=== PATIENT | male | born 1970 | race Caucasian/White ===

== ENCOUNTER → 2021-09-12 | Outpatient (CLI) | payer OTHER, SELFPAY ==
--- NOTE | 2021-09-12 12:33 | CT_ITS ---
STUDY: CT CHEST without CONTRAST REASON FOR EXAM: Male, 51 years old. FAMILY HEART DISEASE OVER READ ONLY RADIATION DOSAGE (If Supplied By Facility): CTDIvol = ( 25.62 ) mGy, DLP = ( 1353.50 ) mGycm TECHNIQUE: Transaxial imaging was performed without the administration of intravenous contrast material. Overread for cardiac angiogram. Individualized dose optimization techniques were used for this CT. COMPARISON: No relevant priors. FINDINGS: CHEST Mild increased markings at the lung bases suggestive of atelectasis. There is no demonstrated pleural abnormality. There are calcifications of the coronary arteries. Normal mediastinum. Normal hilar regions. Normal unenhanced pulmonary arteries. Normal aorta arch and descending thoracic aorta. Normal osseous structures. Small hiatal hernia. IMPRESSION: Coronary artery calcification. Mild degree of atelectasis and/or scarring at the lung bases. Electronically Signed: Eze De Jesus MD at 14:45 EDT , STUDY: CARDIAC OVER READ EXAMINATION. REASON FOR EXAM: Male, 51 years old. FAMILY HEART DISEASE OVER READ ONLY RADIATION DOSAGE (If Supplied By Facility): CTDIvol = ( 25.62 ) mGy, DLP = ( 1353.50 ) mGycm. Individualized dose optimization techniques were used for this CT.? FINDINGS: Coronary artery calcification. Mild increased markings at the lung bases suggestive of linear atelectasis and/or scarring. CT/Limited Chest CT w/CCTA IMPRESSION: Coronary artery calcification. Electronically Signed: Eze De Jesus MD at 14:45 EDT ,
[2021-09-12 12:54] VITALS: BP 125/91; PULSE 55; RESP 14; TEMP 37.2; O2SAT 97; BMI 26.5
[2021-09-12 13:07] VITALS: BP 125/91; PULSE 55
[2021-09-12] MEDS: Nitroglycerin SL (ED/IMG/CATH) 0.4 MG TABLET SL (13:07)
[2021-09-12 13:20] VITALS: BP 109/76; PULSE 63; RESP 14; O2SAT 95
--- NOTE | 2021-09-12 13:21 | NURSING ---
Patient states feeling fine. Steady gait to elevator.
--- NOTE | 2021-09-12 17:32 | CA.SCORE ---
Calcium Scoring Date of Study:: 09/12/21 Coronary Calcium Scoring: High-resolution Computed Tomographic imaging of the chest was performed on 09/12/2021 with particular attention paid to the coronary arteries. Images from the examination were analyzed for the presence and extent of coronary artery calcification , using coronary calcium quantification software. The patient tolerated the procedure well and there were no complications. The results of the coronary calcification analysis are provided below. Findings Coronary Artery Left Main (LM): 0 Left Anterior Descending (LAD): 219 Left Circumflex (LCX): 9.93 Right Coronary Artery (RCA): 11.5 Total Agatston Score: 240.43 Percentile Ranking: According to prepublished reference tables between 75% and 90% of patients of the same gender/similar age had the same/lower scores. Calcium Scoring Interpretation: 0 No identifiable atherosclerotic plaque. Very low cardiovascular disease risk. <5% chance of presence coronary artery disease A Negative Examination 1-10 Minimal Plaque burden. Significant coronary artery disease very unlikely. 11-100 Mild plaque burden. Likely mild or minimal coronary atherosclerosis. 101-400 Moderate plaque burden Moderate non-obstructive coronary artery disease highly likely. Over 400 Extensive plaque burden. High likelihood of at least one significant coronary stenosis (>50% diameter) Calcium Score: 101 - 400 Moderate non-obstructive coronary artery disease highly like Conclusion: Continue cardiovascular risk factor evaluation and care as deemed appropriate. This note was generated using a voice recognition system and there may be incorrect words, spelling or punctuation that were not noted when reviewing the office note prior to saving.
--- NOTE | 2021-09-12 17:46 | CCTA.WCONT ---
CCTA w/Cont Coronary Arteries Date of Study:: 09/12/21 Family history of CAD Consent:: Per Patient The patient underwent high-resolution CT imaging of the chest on 09-12-2021 with particular attention to the coronary arteries. The images were examined and analyzed for the presence and extent of coronary artery calcification using coronary calcium quantification software as well as for the evidence of underlying atherosclerotic coronary artery disease. The patient tolerated the procedure without any obvious complications being reported. LEFT MAIN CORONARY ARTERY: The left main coronary artery is a large vessel giving rise to the left anterior descending and left circumflex coronary arteries. It does not appear to demonstrate any obvious angiographically significant appearing disease. LEFT ANTERIOR DESCENDING CORONARY ARTERY: The left anterior descending coronary artery is a large vessel which gives rise to a septal gymnasium teacher system and a diagonal branch system and subsequent courses to the LV apex. The proximal and mid LAD demonstrate a combination of mild to moderate and moderate to severe partially obstructive eccentric soft plaque and calcified plaque. The mid LAD demonstrates an area that is not well visualized raising a concern of an underlying moderate to severe soft plaque versus technical artifact due to underperfusion and poor illumination. LEFT CIRCUMFLEX CORONARY ARTERY: The left circumflex coronary artery appears to be a moderate sized vessel giving rise to a moderate-sized obtuse marginal branch. It does not appear to demonstrate any obvious angiographically significant appearing disease. RIGHT CORONARY ARTERY: The right coronary artery appears to be a large dominant vessel giving rise to a right PDA system. It appears to demonstrate a mild proximal eccentric soft plaque. THORACIC AORTA: The thoracic aorta appears to be patent with no obvious angiographic appearing atherosclerotic disease. PULMONARY ARTERY: The main pulmonary artery and the proximal portions of the right and left pulmonary arteries appear to be patent with no obvious filling defects. LEFT ATRIUM/APPENDAGE: The left atrium/appendage appears to be patent with no obvious filling defects. MITRAL VALVE: The mitral valve appears to be bileaflet. AORTIC VALVE: The aortic valve appears to be trileaflet. LEFT VENTRICLE: The left ventricle appears to demonstrate grossly normal left ventricular size, wall motion, and systolic function. The calculated LVEF is 47%. CORONARY CALCIUM SCORE: The coronary calcium score is reported at 241. Per prepublished reference tables this would be compatible with moderate plaque burden. This note was generated using a voice recognition system and there may be incorrect words, spelling or punctuation that were not noted when reviewing the office note prior to saving.
== END | disposition home or self-care (01) ==
LOC: CT 12:16
PROVIDERS: PCP Internal Medicine; Referring Provider Internal Medicine; Visit Provider Internal Medicine
DX: I25.10 Atherosclerotic heart disease of native coronary artery without angina pectoris (principal); Z82.49 Family history of ischemic heart disease and other diseases of the circulatory system
CPT/HCPCS: 75571; 75574; 76380; Q9967; A4216

== ENCOUNTER → 2021-11-30 | Outpatient (CLI) | payer OTHER, SELFPAY ==
--- NOTE | 2021-11-30 06:30 | ECHOD_ITS ---
Reason For Study: CAD/ASHD Procedure This was a 2D Doppler, Color Flow transthoracic echocardiogram. Exam performed portable in patient room. Left Ventricle Normal LV size. Left ventricular systolic function is lower limits of normal. The estimated ejection fraction is 53 %. Stage 1 diastolic dysfunction. No regional wall motion abnormalities noted. Right Ventricle Normal RV size. Normal systolic function. Atria Normal left atrium. Normal right atrium. Mitral Valve Normal mitral valve. Trivial eccentric mitral valve insufficiency. Tricuspid Valve Normal tricuspid valve. Mild tricuspid valve insufficiency. Pulmonary artery systolic pressure is 24 mmHg. Aortic Valve Normal aortic valve. Trisinus/trileaflet aortic valve. Pulmonic Valve Normal pulmonic valve. Great Vessels Normal aortic root. The pulmonary artery is normal size. Normal inferior vena cava. Pericardium/Pleural No pericardial effusion. MMode/2D Measurements & Calculations LVIDd: 4.3 cm IVSd: 0.98 cm Ao root diam: 3.2 cm LVIDs: 2.9 cm LVPWd: 0.89 cm RVDd: 3.3 cm FS: 31.8 % LAV(MOD-bp): 30.9 ml LVAd ap4: 26.1 cm2 SV(MOD-sp4): 41.6 ml LAV(MOD-bp) Indexed: 15.5 ml/m2 LVLd ap4: 7.8 cm LAV(MOD-sp2): 33.4 ml EDV(MOD-sp4): 73.0 ml LAV(MOD-sp4): 27.1 ml EDV(sp4-el): 73.9 ml LVAs ap4: 15.8 cm2 LVLs ap4: 6.7 cm ESV(MOD-sp4): 31.4 ml ESV(sp4-el): 31.8 ml EF(MOD-sp4): 56.9 % EF(sp4-el): 57.0 % SV(sp4-el): 42.1 ml LA A4 area: 12.3 cm2 LA dimension(2D): 3.4 cm RA A4 area: 13.1 cm2 Doppler Measurements & Calculations MV E max bradly: 46.9 cm/sec Lat Peak E' Bradly: 9.1 cm/sec Med Peak E' Bradly: 7.8 cm/sec MV A max bradly: 58.7 cm/sec E/E' lat: 5.2 E/E' med: 6.0 MV E/A: 0.80 Ao V2 max: 91.8 cm/sec LV V1 max: 80.6 cm/sec PA V2 max: 81.6 cm/sec Ao max P.4 mmHg LV V1 max P.6 mmHg Ao V2 mean: 67.5 cm/sec Ao mean P.0 mmHg Ao V2 VTI: 22.2 cm TR max bradly: 229.6 cm/sec TR max P.1 mmHg ECHO/Echo Complete Interpretation Summary Normal LV size. Left ventricular systolic function is lower limits of normal. The estimated ejection fraction is 53 %. Pulmonary artery systolic pressure is 24 mmHg. Stage 1 diastolic dysfunction. Ordering Physician: Chance Lynn Referring Physician: Karol Douglas Performed By: Corine Casper, RDMADISYN, RVT
--- NOTE | 2021-11-30 12:41 | STRESSREP ---
Stress Test Report Exercise myocardial perfusion stress test. 51-year-old man with a history of coronary calcium. Stress protocol: Resting EKG demonstrates normal sinus rhythm with a rate of 59 bpm normal intervals are noted resting blood pressure is 116/80 mmHg. The patient exercised according to regular Tunde protocol for total duration of 9 minutes. Patient completed stage III of the Tunde protocol the maximum heart rate attained was 166 bpm which was 97% of maximum predicted heart rate the maximum workload was 10.1 metabolic equivalents. At rest there were no ST or T wave changes noted to suggest ischemia. At peak exercise there was approximately 0.[address] depression which did not meet the criteria for ischemia. Mild T wave inversions were noted during recovery. The peak blood pressure was 162/90 mmHg. The test was terminated due to the target heart rate being achieved. The patient did experience mild and moderate chest tightness at peak exercise dissipating at rest. Myocardial perfusion protocol. 14.8 mCi of technetium 99m sestamibi was injected at rest. The patient exercised according to regular Tunde protocol and at peak exercise 44.5 mCi of technetium 99m sestamibi was injected stress images were obtained stress and rest images were reconstructed and compared in the short axis vertical long and horizontal long axis. Gated images were also obtained. Perfusion SPECT analysis: Review of the stress images demonstrate a medium size area in the mid anterior wall and apex with reduced perfusion on the stress images. The septum lateral wall and inferior wall appear to be normally perfused. The resting images demonstrate complete reversibility suggesting a moderate amount of anteroapical ischemia at a high workload. No previous infarct is noted. Gated SPECT analysis: The gated ejection fraction is 63%. Conclusion: Abnormal exercise myocardial perfusion stress test with evidence of anterior apical ischemia at a high workload. Preserved ejection fraction.
== END | disposition home or self-care (01) ==
PROVIDERS: PCP Internal Medicine; Referring Provider Internal Medicine Cardiovascular Disease; Visit Provider Internal Medicine Cardiovascular Disease
DX: R93.1 Abnormal findings on diagnostic imaging of heart and coronary circulation (principal); I25.10 Atherosclerotic heart disease of native coronary artery without angina pectoris
CPT/HCPCS: 78452; 93017; 93306; A9500; A4216

== ENCOUNTER 2022-01-02 06:56 | Day surgery (SDC) | payer OTHER, SELFPAY ==
[2022-01-01 09:34] VITALS: BMI 26.5
--- NOTE | 2022-01-01 10:38 | RAD_ITS ---
EXAM: XR CHEST, 2 VIEWS CLINICAL INDICATION: CAD TECHNIQUE: Frontal and lateral views of the chest. This report was created using [facility] report generation technology. COMPARISON: None. FINDINGS: LUNGS AND PLEURAL SPACES: Unremarkable. No consolidation or edema. No pneumothorax. No effusion. HEART: Unremarkable. Cardiac silhouette not enlarged. MEDIASTINUM: Central airways and mediastinal contour are unremarkable. BONES/JOINTS: Unremarkable. SOFT TISSUES: Unremarkable. RAD/Chest PA and Lateral IMPRESSION: No radiographic evidence of acute cardiopulmonary disease. Electronically Signed: Lisandro Fernandes MD at 11:38 EDT ,
[2022-01-01 11:24] LABS: Absolute Lymphocyte Count 3.84 X10^3/uL (0.83-4.51); Absolute Neutrophil Count 4.9 X10^3/uL (2.0-7.7); Basophil# 0.11 X10^3/uL; Basophil% 1.1 % (0-1); Eosinophil# 0.25 X10^3/uL; Eosinophils% 2.4 % (0-5); Hematocrit 48.8 % (40-54); Hemoglobin 17.1 g/dL (13.0-16.5); Lymphocyte # 3.84 X10^3/ul (0.83-4.51); Lymphocyte % 37.4 % (19-41); Mean Corpuscular Hgb 31.5 pg (27.0-32.0); Mean Platelet Vol. 9.8 fl (6.2-12.0); Monocyte# 0.93 X10^3/uL; Monocyte% 9.1 % (0-10); NRBC Flagged by Analyzer 0 % (0-5); Neutrophil # 4.91 X10^3/uL (2.7-7.7); Neutrophil % 47.8 % (47-70); Platelet Count 265 K/mm3 (150-450); RBC Distribution Width CV 13.2 % (11.6-14.6); RBC Distribution Width SD 43.5 fl (35.1-43.9); Red Blood Count 5.42 M/mm3 (4.6-6.2); White Blood Count 10.3 K/mm3 (4.4-11.0)
[2022-01-01 11:59] LABS: Anion Gap 6 (5-15); BUN 22 mg/dL (7-18); BUN/Creat Ratio 18.5 RATIO (10-20); Calcium,Total 9.1 mg/dL (8.5-10.1); Chloride 106 mmol/L (98-107); Creatinine, Serum 1.19 mg/dL (0.70-1.30); EST Glomerular Filtration Rate 69 mL/min (>60); Est Glom Filt Rate - Afr Amer 83 mL/min (>60); Estimated Creatinine Clearance 76.68 ml/min; Glucose 77 mg/dL (74-106); Sodium Level 140 mmol/L (136-145)
--- NOTE | 2022-01-02 08:20 | PCM.HP.BLA ---
History and Physical Date of Admission: 01/02/22 51-year-old man who saw primary care provider for a general physical. He does have a significant family history of coronary artery disease with his father having a myocardial infarction in his 40s, grandfather with similar heart disease and an [place] in his 60s. He denies any chest pain or shortness of breath or paroxysmal nocturnal dyspnea pedal edema no neck arm or jaw discomfort to suggest angina. As part of his work-up he underwent a coronary calcium score with angiography. It demonstrated a coronary calcium score of 241 which suggested moderate plaque burden. There was a suggestion of a combination of soft and calcified plaque with mild to moderate disease noted in the mid left anterior descending artery with possible moderate to severe partially obstructive plaque noted. There was a question of underperfusion on this test. He is completely asymptomatic. His most recent lipid profile demonstrated total cholesterol 184 LDL of 132 HDL of 40. His electrocardiogram demonstrates normal sinus rhythm with a rate of 74 bpm and no acute changes. To assess further, he underwent echocardiogram on 11/30/2021 that showed ejection fraction of 53% and stage I diastolic dysfunction. He had stress test on 11/30/2021 that was considered to be abnormal with evidence of anterior apical ischemia at a high workload with a preserved ejection fraction. He presents today for heart catheterization on account of abnormal stress test. Intake Vital Signs: See EMR Intake Visit Reasons: Abnormal stress test/LHC Allergies bee venom protein (honey bee) Adverse Reaction (Severe, Verified 07/27/21 13:38) Anaphylaxis Medications See EMR Ejection fraction %: 53 [facility] Medical History Abnormal findings diagnostic imaging of heart and coronary circulation Colon cancer screening Family history of coronary artery disease Family history of coronary artery disease in father Family history of coronary artery disease in grandfather Family History Father Myocardial infarction, Onset Age: 43 CAD (coronary artery disease) CABG ICD Hypertension Grandmother No problems noted. Grandfather Myocardial infarction, Onset Age: 61 Other Diabetes Rheumatoid arthritis Social History Smoking Status: Never smoker alcohol intake: current alcohol intake frequency: a few times a week Alcohol type: beer and hard liquor substance use type: does not use ROS Const Const: Negative for fatigue, weakness, headache(s), frequent falls, difficulty sleeping or excessive sweating Eyes Eyes: Negative for loss of peripheral vision, transient loss of vision, blurry vision, double vision or tunnel vision ENT ENT: Negative for headache(s), dizziness, Nosebleed/epistaxis or balance problems Cardio Chest Pain: No Palpitations: No Edema: None Muscle aches with walking: None Resp Respiratory: Negative for SOB with activity, SOB at rest, SOB orthopnea\SOB lying down, Cough or paroxysmal nocturnal dyspnea GI GI: Negative nausea, vomiting, heartburn or black,tarry stools : Negative for hematuria Musc Musc: Negative for muscle aches/ myalgia, muscle weakness, joint pain or balance problems Skin Skin: Negative non-healing lesions, rash or unusual bruising Neuro Neuro: Negative for dizziness, lightheadedness, near syncope, syncope, orthostatic symptoms, frequent falls, headache(s), weakness, blurry vision, double vision or lack of coordination Joshua Hematologic/Lymphatic: Negative for easy bleeding or easy bruising Endo Endo: Negative for fatigue, excessive sweating or increased thirst/drinking Psych Psych: Negative for anxiety or depression Allergy Allergy/Immunology: Negative for hives and Negative for rash Cardiology Exam Const Appearance: cooperative, healthy appearing, no acute distress, well developed and well groomed Nutritional Appearance: average body habitus and well nourished Orientation: alert, awake and oriented x3 Head Head: normal to inspection, normocephalic and atraumatic Ears: hearing grossly normal bilaterally and external ears normal Nose: external nose normal, nares normal, nasal mucous membranes and turbinates normal, septum normal and no nasal discharge Face and Sinus: face symmetric Mouth: oral mucosae normal, tongue normal, oropharynx normal and moist mucous membranes Teeth and gingiva: dentition normal Throat: posterior oropharynx normal, tonsils normal and uvula midline Eyes General: appearance normal, both eyes and all related structures Eyelids: eyelids normal Conjunctivae: conjunctivae normal Pupils: PERRL, normal by confrontation and accommodation normal EOM: EOM intact bilaterally Neck Neck: normal visual inspection, trachea midline and no JVD JVD: +5 Carotids: normal carotid upstroke and bounding pulses Chest Chest inspection: normal inspection of the chest, symmetric chest movement and normal respiratory effort Auscultation: Bilateral: Clear to Auscultation Cardio Palpation: normal PMI Rate: regular rate Rhythm: regular rhythm Heart sounds: S1 normal, S2 normal and normal, physiologic split S2; Negative rub, gallop or murmur GI GI: normal to inspection, soft, no hepatosplenomegaly and bowel sounds present Neuro General: patient alert, patient awake, patient oriented x3, gait normal, moves all extremities and no focal sensory deficit Skin Skin: no rashes or lesions noted Extremities Pulses: Normal: Right Femoral Pulse, Left Femoral Pulse, Right Dorsalis Pedis Pulse, Left Dorsalis Pedis Pulse, Right Posterior Tibial Pulse, Left Posterior Tibial Pulse, Right Radial Pulse and Left Radial Pulse Lower Extremity Edema: None: Bilateral Musculoskel Musculoskeletal: No joint tenderness Psych Psychological: normal affect Supplemental Info Supplemental Information Labs: LDL Cholesterol 132 mg/dL (0-130) H HDL Cholesterol 40 mg/dL (40-) Triglycerides 60 mg/dL (-199) VLDL Cholesterol 12 mg/dL (5-40) Diagnostics: Electrocardiogram Coronary Angiography CT Pulmonary: No Data to Display Assessment and Plan Assessment and Plan (1) Abnormal findings diagnostic imaging of heart and coronary circulation: Status: Acute Orders: Orders: 12 Lead EKG performed by [facility] Today Echo Complete Today Nuclear Stress Test - Treadmil Today Plan - Dr. Chance Lynn MD: He does have an abnormal coronary calcium as well as his findings of atherosclerotic cardiovascular disease. With this risk, he was started on Lipitor 10 mg a day and expected to repeat a lipid profile in 6 months. On account of abnormal stress test, he will proceed with heart catheterization. Based on results, further recommendation will be made.
--- NOTE | 2022-01-02 08:54 | CL.D_ITS ---
Patient Name: NIK NESS Study Date: 01/02/2022 Performing: Chance Lynn MD Ht: 70 inches 177.8 cm : 1970 Wt: 184.99 lbs 83.91 kg Age: 51 Gender: male BSA: 2.02 PROCEDURE(S) PERFORMED [id number])C/COR CLINICAL PROFILE AND INDICATIONS Indications: Suspected CAD Heart Failure: None Stress/Imaging Date: 11/30/2021tress Test with SPECT MPI: Positive Intermediate Risk CAD Presentations: Unstable angina. CONCLUSIONS Totally occluded left anterior descending artery with left to left collaterals and mild LV dysfunction. Mild to moderate disease noted in the circumflex artery and right coronary artery. RECOMMENDATIONS Would recommend intervention for [facility] in a tertiary care facility. We will get opinion as outpatient. DESCRIPTION OF PROCEDURE The patient arrived to the procedure lab. The risks and benefits of the procedure as well as a full description of our services here and current unavailability of surgical backup were fully explained to the patient and/or their significant other prior to the catheterization. The Timeout was completed, verifying the correct patient and procedure. The patient's procedural site was prepped and draped in the usual fashion. Local anesthetic was given subcutaneously to left radial region with Lidocaine 2%. Using a modified Seldinger technique, arterial access was obtained via the right radial artery, a 6Fr sheath was inserted. Right Coronary Artery selective angiography was then performed in multiple views using a 5 Fr. 4.0 [place] catheter. Left Coronary Artery selective angiography was performed in multiple views using a 5 Fr. 4.0 [place] catheter. Left Ventriculography was performed in GRUBER projection using a 5 Fr. Pigtail catheter. LV to AO pullback pressures were then recorded. CORONARY ANGIOGRAPHY DOMINANCE: Right Dominant LEFT HEART ASSESSMENT Left Ventricular Ejection Fraction: by LV Gram 55 % Anterior Hypokinesis - Mild Normal Left Ventricular systolic function LEFT MAIN: Angiographically normal LEFT ANTERIOR DESCENDING ARTERY: Left anterior descending artery is totally occluded proximally and has distal right to left collaterals and a large gap. There are also left to left collaterals noted. CIRCUMFLEX ARTERY: Moderate luminal irregularities up to 50% RIGHT CORONARY ARTERY: Moderate luminal irregularities up to 50% COLLATERAL FLOW: Collateral flow from Right to Left Collateral flow from Left to Left COMPLICATIONS No Complications PROCEDURE MEDICATIONS Versed 1 mg IV Fentanyl 50 mcg IV Versed 1 mg IV Baby Aspirin (81mg) 1 Tabs PO @ 01/02/2022 07:13:44 Heparin given IA 01/02/2022 08:27:57 Verapamil 2.5mg, Ntg 100mcgs, 3000 units of Heparin given IA 01/02/2022 08:27:57 SUMMARY OF HEMODYNAMIC DATA Time AIR REST ECG 07:14:51 Art 126/75 (96) 08:23:09 AO 108/78 (93) SA 08:29:35 LV 118/5, 13 08:35:24 LV 109/6, 11 08:35:32 LV 113/6, 13 08:36:19 LVp 108/5, 8 08:36:22 AOp 114/66 (95) 08:36:29 Signed By Chance Lynn MD On 01/02/2022 08:54:00 Chance Lynn MD
--- NOTE | 2022-01-02 09:11 | CASEMGMT ---
According to the [facility]/MMO website the following are in-network tertiary facilities: [facility], [place], [facility], [facility], [facility], [facility], and . [facility]
== END 2022-01-02 10:59 | disposition home or self-care (01) ==
LOC: CLSP 06:57
PROVIDERS: PCP Internal Medicine; Referring Provider Internal Medicine Cardiovascular Disease; Visit Provider Internal Medicine Cardiovascular Disease
DX: I25.110 Atherosclerotic heart disease of native coronary artery with unstable angina pectoris (principal); I25.82 Chronic total occlusion of coronary artery; Z79.82 Long term (current) use of aspirin; Z79.899 Other long term (current) drug therapy
CPT/HCPCS: 36415; 71046; 80048; 85025; 93458; 99152; 99153; J7040; C1769; C1894; Q9967

== ENCOUNTER → 2022-01-12 | Outpatient (CLI) | payer OTHER, SELFPAY ==
[2022-01-12 12:04] LABS: Hematocrit 45.1 % (40-54); Hemoglobin 15.4 g/dL (13.0-16.5); Mean Corp Hgb Conc 34.1 g/dL (32-36); Mean Corpuscular Hgb 30.7 pg (27.0-32.0); Platelet Count 228 K/mm3 (150-450); RBC Distribution Width CV 12.5 % (11.6-14.6); RBC Distribution Width SD 41.1 fl (35.1-43.9); Red Blood Count 5.01 M/mm3 (4.6-6.2); White Blood Count 7.7 K/mm3 (4.4-11.0)
[2022-01-12 12:30] LABS: Anion Gap 6 (5-15); BUN 19 mg/dL (7-18); BUN/Creat Ratio 17.8 RATIO (10-20); Calcium,Total 9.2 mg/dL (8.5-10.1); Chloride 106 mmol/L (98-107); Creatinine, Serum 1.07 mg/dL (0.70-1.30); EST Glomerular Filtration Rate 78 mL/min (>60); Est Glom Filt Rate - Afr Amer 94 mL/min (>60); Glucose 90 mg/dL (74-106); Potassium 3.8 mmol/L (3.5-5.1); Sodium Level 139 mmol/L (136-145)
== END | disposition home or self-care (01) ==
LOC: LAB 11:03
PROVIDERS: PCP Internal Medicine
DX: I25.10 Atherosclerotic heart disease of native coronary artery without angina pectoris (principal)
CPT/HCPCS: 36415; 80048; 85027

== ENCOUNTER → 2022-01-16 | Outpatient (CLI) | payer OTHER, SELFPAY ==
--- NOTE | 2022-01-16 13:16 | CR.HP_ITS ---
CR - History & Physical - General Arrival date:: 01/16/22 Arrival time:: 13:16 Date of Referral:: 01/07/22 Date of CR Evaluation:: 01/16/22 Referring Physician: Dr. Chance Lynn Primary Diagnosis: PCI with stenting - History of Present Cardiac Event Onset Date: Enter Onset Date of cardiac illnesses in Comment field below PTCA or coronary stenting:: Yes - 01/07/2022 Vessel: WINDER TENDER LAD - Sleep Disorder Evaluation Hx of Sleep Apnea: No Do you snore loudly (louder than talking or can be heard through closed doors)?: No Do you often feel tired/ fatigued/ sleepy during daytime?: No Has anyone observed you stop breathing during sleep?: No History of Hypertension (for STOP score): No STOP Results: Negative - Medications Home Medications: Ambulatory Orders Medication Instructions Recorded rizatriptan 10 mg tablet See Rx Instructions PO .COMPLEX 09/21/21 aspirin 81 mg tablet,delayed 81 mg PO DAILY 11/30/21 release (Adult Aspirin Regimen) methylprednisolone 4 mg tablets in See Rx Instructions PO PER PKG DIR 12/26/21 a dose pack (Medrol (Alex)) #21 tabs atorvastatin 80 mg tablet 80 mg PO QHS 01/07/22 metoprolol succinate 50 mg 50 mg PO DAILY 01/07/22 tablet,extended release 24 hr ticagrelor 90 mg tablet 90 mg PO BID 01/07/22 - Allergies Allergies/Adverse Reactions: Allergies bee venom protein (honey bee) Adverse Reaction (Severe, Verified 12/26/21 12:53) Anaphylaxis Advanced Directives - Advanced Directives Power of Art Professor: No Living Will: No Advance Directives Information Provided: No Advance Directives on File: No DNR Order?:: No Past Medical History - Covid-19 Screening Has a serious heart condition:: Yes - Past Medical Illness Medical History: Past Medical History (Last Updated 01/07/22 @ 17:26 by Earnestine [place]) Abnormal findings diagnostic imaging of heart and coronary circulation R93.1 Abnormal nuclear stress test R94.39 Atherosclerosis of coronary artery without angina pectoris I25.10 Colon cancer screening Z12.11 Elevated coronary artery calcium score R93.1 Family history of coronary artery disease Z82.49 Family history of coronary artery disease in father Z82.49 Family history of coronary artery disease in grandfather Z82.49 - Past Surgical History Surgical History: Past Surgical History (Last Updated 01/07/22 @ 17:26 by Earnestine [place]) History of coronary artery stent placement Onset Date: 01/07/22 Z95.5 PCI-BRITTANIE of sequential proximal LAD stenoses and mid LAD WINDER TENDER with PTCA and deployment of 3 overlapped Xience BRITTANIE (3.5 x 28 mm proximal, 3.0 x 33 mm mid, and 2.5 x 12mm mid) 01/07/2022 History of left heart catheterization Onset Date: 01/02/22 Z98.890 - Family History Summary Family History: Family History (Last Reviewed 12/26/21 @ 12:53 by Candie Saab) Father Myocardial infarction, Onset Age: 43 CAD (coronary artery disease) CABG ICD Hypertension Grandmother No problems noted. Grandfather Myocardial infarction, Onset Age: 61 Other Diabetes Rheumatoid arthritis Social History - Smoking History Smoking Status: Never smoker - Alcohol Use Alcohol Usage: Yes - occas beer an liquor - Occupation Occupation (List type of work in comments):: Employed Hours worked per day:: 12 - Hobbies, Recreation, Social Activities Hobbies: Woodworking Recreational Activities: I am able to engage in all my recreational activities Social Environment - Status Marital Status: - Current Living Arrangements Living Environment:: Family - Children How many children do you have?: 2 Do any of your children live nearby?: Yes - Safety Do you feel safe in your surroundings?: Yes - Assistance Do you need any assistance at home?: none Review of Systems - Review of Systems Hints: Right click = Denies ([place]). Left click = Reports ([place]) Review of Present Symptoms: Reports: Appetite - Normal, Sleep - Normal. Denies: Shortness of Breath at Rest, Shortness of Breath with Exertion, PVD, Operative Discomfort, Angina, Wound Healing, Dizziness/Lightheadedness, Fatigue, Heart Arr hythmia/Irregularities, Appetite - Special Diet, Sexual Changes - Pain Is Patient Pain Free?: Yes Risk Factor Assessment - Chief Complaint Chief Complaint: PCI with coronary stent - Vital Signs Pulse Ox: 96 Blood Pressure: 90/60 - Pulse Pulse Rate: 75 Pulse Rhythm: Regular - Obesity Height: 5 ft 10 in Weight:: 84.368 kg Weight in Pounds: 186.0 lbs Body Mass Index (BMI): 26.6 Nutritional Referral for Obesity: No - Physical Inactivity Physical Inactivity: None - Risk Stratification Risk Guidelines: Lowest Risk: Risk Factor for Smoking, Moderate Risk: Risk Factor for Dyslipidemia, Risk Factor for Diabetes, Risk Factor for Obesity, Risk Factor for Hypertension, Risk Factor for Sedentary Lifestyle, Risk Factor for Depression - Family History Family History: Family History (Last Reviewed 12/26/21 @ 12:53 by Candie Saab) Father Myocardial infarction, Onset Age: 43 CAD (coronary artery disease) Hypertension Grandmother No problems noted. Grandfather Myocardial infarction, Onset Age: 61 Other Diabetes Rheumatoid arthritis Motivation - Motivation to Participate On a scale of 1 to 10, how prepared are you to commit to attending program?: 8 What do you see as barriers to successfully being able to complete the program?: work What do you see as the benefits of succesfully completing the program? In other words, what do you hope to get out of participating in the program?: improved health and knowledge of cardiac disease Are there issues you are dealing with that will interfere with completing the program?: no Do you have a spouse or signficant other, family or friends who will help support you to complete the program?: yes
[2022-01-16 14:02] VITALS: BP 90/60; PULSE 75; O2SAT 96; BMI 26.6
--- NOTE | 2022-01-16 14:02 | CR.ITP_ITS ---
Diagnosis - General Information Admitting Diagnosis: pci with coronary stent Personal Learning Style:: Audio/Visual, Demonstration, Group, Individual Preference, Written Stage of change r/t lifestyle modifications:: Contemplation Gave educational material for:: Treating Heart Disease, Emotions & Heart Disease, Stress Management & Relaxation, Sleep Disorders & Heart Disease, How The Heart Works, What it means to have Heart Disease, How Coronary Artery Disease is Diagnosed, Heart Procedures, What Heart Medications Do, Risk Factors & Modifications, Living an Active Life, Nutrition - Education/Goals Cardiac Rehabilitation Goals: 1. Maintain the individual as the primary focus of care. 2. To improve the patient's quality of life. 3. Identification of cardiac risk factors and provide cardiac risk factor management. 4. Enhance the psychosocial status of the patient. 5. Reconditioning enough to allow the patient to resume customary activities. 6. Control symptoms of cardiac disease Personal Goals: Initial Assessment: Improve energy level, Participate in home exercise program, Get back to work, or to resume activities faster, Improve knowledge of cardiac disease, Improve muscle strength and endurance, Improve diet and eating habits (eat healthier), Control risk factors (learn risk factor modification) Scale for measuring improvement of personal goals: Enter appropriate number in Comments. 2 = Unchanged. 3 = Slightly Better. 4 = Moderate Improvement. 5 = Met my Goal - Diagnosis & Disease Process Outcomes/Goals: Pt IDs own risk factors & lifestyle modifications by Session 10, Verbalizes symptoms of angina & response by session 3., Pt independently manages, Other Additional Outcomes/Goals: Plan/Interventions: Assist Pt to ID & engage in lifestyle modification to reduce CVD risk, Instruct on individual risk factors, Review symptoms of angina & emergency actions, Review secondary diagnosis & identify educational needs., Other see comment 30 day Reassessments:: Not Met 30 day Reassessments:: Not Met 30 day Reassessments:: Not Met 30 day Reassessments:: Not Met Final Reassessments:: Not Met - Safety Referral to Physical Therapy: No Referral to [facility] Case Management: No Fall Risk Assessed:: Yes Assistive Devices:: None Exercise - Initial Assessment - Visit Date of Eval: 01/16/22 - initial eval Mets: Pre-: >3 METS for 30 minutes by discharge, >5 METS for 30 minutes by discharge, >7 METS for 30 minutes by discharge, Unable to meet goal due to: (see comment below) - Physician Prescribed Exercise Modalities: Treadmill, Rower, Airdyne, NuStep, SciFit, Lateral [place] Frequency: 2x/week for 18 weeks [36 sessions], 3x/week for 12 weeks [36 sessions] Intensity: 60-80% of age predicted maximum heart rate reserve Current METSs:: 4 Target Heart Rate:: 104-136 Resting Blood Pressure: 90/60 EKG Type: SR - Outcomes & Goals Goals:: Verbalizes understanding of THR, RPE & goal METS by session 6, Documents in home exercise log/reports 30 min aerobic 5 day/wk by DC, Demonstrates accurate pulse taking by DC, Other additional outcome/goals: see below - Intervention & Plan Exercise Program Goals: Instruct on personal THR & RPE, Instruct on MET level & personal MET goal, Show patient to take own pulse /validate performance until accurate, Instruct on home exercise, Other additional plan/int - Physical Activity Home Exercise Physical Activity - Home Exercise: Safe Exercise, Warm-up, Self-monitoring, Cool-Down, Home Exercise > 30 min Daily, Sitting Time <3 hours/daily - Outcomes & Goals Outcomes/Goals: Demonstrates correct Warm-up/exercise Cool-Down (S3) if = 2.5 METs, Verbalizes symptoms of exercise intolerance by Session 3 (S3), Demonstrate safe equipment use (S3) & follows exercise prescrition (6), Other: See below - Intervention & Plan Plan/Intervention: Instruct warm-up & cool-down if exercising at > 2 METs, Instruct on symptoms of exercise intolerance & actions to take, Instruct & monitor on saf, Assess intial functional capacity & safety risk, Other See below Nutrition - Initial Assessment - Program Goals Nutrition Program Goals: LDL <100 optimal. 100 - 129 Near optimal. 130 - 159 Borderline High. 160 - 189 High. Total Cholesterol <200 desirable. 200 - 239 Borderline High. >/= 240 High. HDL < 40 Low >/=60 High. Triglycerides <150 desirable. <199 optimal. VlDL 5 - 40. HgbA1C <7%. BMI <25 Patient has diagnosis of Hyperlipidemia (ICD E78)?: Yes - Visit Date of Assessment:: 01/16/22 - initial eval - Cholesterol/Lipids (Other Core Measures) Determine presence & major risk factors that modify LDL goal: Hypertension or hypertensive medication, Low HDL cholesterol <40 mg/dL*, Family history of premature CHD in Male < 55 years: female <65 yearsFa, Age men > 45 years; women >/= 55 years Outcomes/Goals: Pt IDs own risk factors & lifestyle modifications by Session 10, Verbalizes symptoms of angina & response by session 3., Pt independently manages, Other Additional Outcomes/Goals: Intervention/Plan: Advocate for lipid panel cholesterol medication if applicable, Instruct on personal lipid levels & lipid goals/NCEP guidelines, Instruct on cholesterol, Other additional plan/int Referral to dietitian:: No - declines - Diabetes (Other Core Measures) Diabetes Type: Not Applicable - Weight Mgt (Other Care) Height: 5 ft 10 in Weight:: 84.368 kg BMI: 26.6 Diagnosis Overweight/Obesity BMI> 30% ICD-10 E66: No Diagnosis High BMI/Morbid Obesity BMI> 35% ICD-10 Z68: No Outcomes/Goals: Pt sets, maintains & shows weight loss goal & trend during rehab, Other additional outcomes/goals Intervention/Plan: Instruct on ideal BMI & set weight loss goal w/patient, Assist pt to ID & incorporate diet changes for weight loss by S9, Refer to Structured Weight Loss program as appropriate, Encourage goal of using 250- 300dcal per session for weight loss, Other additional plan/interventions - Healthy Eating Habits Will attend diet classes:: Yes Outcomes/Goals:: Consume diet rich in vegs,fruits,whole grain/high fiber,fish,lean meat, Limit sat/trans fats,cholesterol & added salts & sugars, Other additional outcome/goals: Intervention/Plan:: Assess current eating habits, Other Additional plan/interventions - Education Gave educational materials for:: Signs & symptoms of hypoglycemia, Signs & symptoms of hyperglycemia, Relate diabetes to coronary artery disease, Healthy eating Nutrition - 30-Day Assessment Nutrition - 60-Day Assessment Nutrition - 90-Day Assessment Nutrition - Final Assessment Core - Initial Assessment - Visit Date of Eval: 01/16/22 - initial eval - Medication Compliance Preventative Medication(s):: Aspirin, Ticagrelor/P2Y12 inhibitor, Statin/lipid, Beta trena H/O mental health issues: depression, anxiety, or addiction?: No Doesn?t believe in the benefits of treatment?: No Believes medications are unnecessary or harmful?: No Has a concern about medication side effects?: No Expresses concern over the cost of medications?: No Outcomes/Goals: Verbalizes medications,desired effect & common side effects @ DC, Pt self-reports following medication regimen, Keeps card in wallet w/medications listed by DC, Other additional outcome/goals: Interventions/plans: Instruct on medication effects & side effects, Review medication list w/patient every two weeks, Instruct importance of taking meds as ordered & assist problem solving, Other additional - Tobacco Use Tobacco Use: Non-smoker Do you use smokeless tobacco?: No - Hypertension Resting Blood Pressure:: 90/60 [place] [employer] Hypertension Guidelines: [place] [employer] Hypertension Guidelines. Normal BP Less than 120/80. Elevated BP 120/80. Hypertension Stage 1: BP 130-139/80-89. Hypertesnion Stage 2: BP 140 or higher/90 or higher. Hypertension Crisis: BP higher than 180/120 Outcomes/Goals: Able to verbalize/achieve optimal blood pressure <130/80, Incorporates diet changes & exercise for blood pressure control by DC, Other additional outcomes/goals Interventions/plan: Instruct on optimal blood pressure, hypertension & medications, Instruct on effects of sodium, alcohol, stress, exercise &hypertension, Other additional plan/interventions - Tobacco Cessation Referral Smoking Cessation Referral:: No Individual Education/Counseling:: No Education Schedule Given:: Yes Core - 30-Day Assessment Core - 60-Day Assessment Core - 90 Day Assessment Core - Final Assessment Psychosocial - Initial Assess - VIsit Date of Eval: 01/16/22 - initial eval History of previous Mental disease:: No - Outcomes/Goals: See list Psychosocial Outcomes/Goals:: ID's personal stressors & 2 strategies to manage stress by discharge, Other Additional outcome/goals: - Intervention/Plan: See List Interventions/Plan:: Assess stressors,coping strategies & signs of derpression on admission, Instruct/assist pt to develop coping & personal stress Mgt strategies, Refer to Behavioral Health if appropriate, Refer to Physician if appropriate, Instruct patient to recognize signs & symptoms of depression, Instruct patient to recog, Other additional plan/intervention Psychosocial - 30-Day Assess Psychosocial - 60-Day Assess Psychosocial - 90-Day Assess Psychosocial - Final Assessmen Patient Health Questionnaire Initial Assessment 1. Little interest or pleasure in doing things: Not at all 2. Feeling down, depressed, or hopeless: Not at all 3. Trouble falling or staying asleep, or sleeping too much: Not at all 4. Feeling tired or having little energy: Several days 5. Poor appetite or overeating: Not at all 6. Feeling bad about yourself -- or that you are a failure or have let yourself or your family down: Not at all 7. Trouble concentrating on things, such as reading the newspaper or watching television: Not at all 8. Moving or speaking so slowly that other people could have noticed. Or the opposite - being so fidgety or restless that you have been moving around a lot more than usual: Not at all 9. Thoughts that you would be better off , or of hurting yourself in some way: Not at all How difficult have these problems made it for you to do your work, take care of things at home, or get along with other people?: Not difficult at all Total Score: 1 JOSE-Q SV Test - Statements CAD is a disease of the arteries in the heart: False Examples of risk factors for heart disease: True Angina is chest pain or discomfort: True The benefits of resistance training include: True Eating more meat and dairy products: False Anti-platelet medications such as aspirin are important: True The only effective way to manage stress: False An exercise warm-up slowly increases heart rate: True Prepared, processed foods usually have high sodium: True Depression is common after a heart attack: True The statin medications lower cholesterol: True To control blood pressure, lower the amount of sodium: True If someone gets chest discomfort during walking: False Transfats are partially hydrogenated vegetable oils: False Sleep apnea that is not treated increases the risk: False To control cholesterol, one should become a vegetarian: True Someone knows if he/she is exercising at the right level: True Diabetes cannot be prevented with exercise & health eating: False Stress is a large risk for heart attack: True A diet that can help lower blood pressure is rich in: True - Total Score Total Correct Responses: 18 Self-Efficacy Initial Assessment We would like to know how confident you are in doing certain activities. Please select your confidence level for:: Select your confidence level for the following using the scale 1-10 where 1 is not at all confident and 10 is totally confident. Your score is the average of all 6 responses. Fatigue: How confident are you that you can keep the fatigue caused by your disease from interfering with the things you want to do? Select Number: 8 Physical Discomfort or Pain: How confident are you that you can keep the physical discomfort or pain of your disease from interfering with the things you want to do? Select Number: 10 Emotional Distress: How confident are you that you can keep the emotional distress caused by your disease from interfering with the things you want to do? Select Number: 8 Other Symptoms or Health Problems: How confident are you that you can keep other symptoms or health problems from interfering with the things you want to do? Select Number: 9 Different Tasks and Activities: How confident are you that you can do the different tasks and activities needed to manage your health condition so as to reduce your need to see a doctor? Select Number: 7 Medication: How confident are you that you can do things other than just taking medication to reduce how much your illness affects your everyday life? Select Number: 10 Total Score:: 8 Nutrition Survey - Nutrition Survey Initial Have you lost >10 lbs over the past 2 months without trying?: No Are you following a special diet at home for diabetes, low fat, or low salt?: No Are you interested in meeting with a dietitian for help understanding your diet?: No Do you eat less than 3 meals a day?: No Do you eat fatty meats (el, sausage, ribs, etc), fried foods, desserts, large amounts of salad dressings, margarine, butter, or cheese most days?: Yes Do you have food allergies? [Enter types in comment field]: No Do you eat in restaurants more than 3 times a week?: No Do you season food with salt, seasoning salt, or garlic salt?: No Do you used canned, boxed, frozen meals, or soups, seasoning packets?: No Total Score:: 1
[2022-01-16 14:21] VITALS: BP 90/60; BMI 26.6
== END | disposition home or self-care (01) ==
LOC: CR 13:09
PROVIDERS: PCP Internal Medicine; Referring Provider Internal Medicine Cardiovascular Disease; Visit Provider Internal Medicine Cardiovascular Disease
DX: Z95.5 Presence of coronary angioplasty implant and graft (principal)

== ENCOUNTER 2022-01-23 08:00 | Outpatient (RCR) | payer OTHER, SELFPAY ==
[2022-01-16 14:21] VITALS: BMI 26.6
== END 2022-01-25 23:59 ==
LOC: CR 08:00
PROVIDERS: PCP Internal Medicine; Referring Provider Internal Medicine Cardiovascular Disease; Visit Provider Internal Medicine Cardiovascular Disease
DX: I25.10 Atherosclerotic heart disease of native coronary artery without angina pectoris (principal); Z95.5 Presence of coronary angioplasty implant and graft
CPT/HCPCS: 93798

== ENCOUNTER 2022-02-18 08:00 | Outpatient (RCR) | payer OTHER, SELFPAY ==
[2022-01-16 14:21] VITALS: BMI 26.6
== END 2022-02-25 23:59 ==
LOC: CR 08:00
PROVIDERS: PCP Internal Medicine; Referring Provider Internal Medicine Cardiovascular Disease; Visit Provider Internal Medicine Cardiovascular Disease
DX: I25.10 Atherosclerotic heart disease of native coronary artery without angina pectoris (principal); Z95.5 Presence of coronary angioplasty implant and graft
CPT/HCPCS: 93798

== ENCOUNTER 2022-03-15 08:00 | Outpatient (RCR) | payer OTHER, SELFPAY ==
[2022-01-16 14:21] VITALS: BMI 26.6
--- NOTE | 2022-03-18 07:22 | PCM.CR.ITP ---
Diagnosis Exercise - 30-day Assessment - Visit Date of Eval: 03/18/22 Session #:: 13 - Physician Prescribed Exercise Modalities: Treadmill, Rower, Airdyne Frequency: 3x/week for 12 weeks [36 sessions] Intensity: 60-80% of age predicted maximum heart rate reserve Duration: 30 - 45 minutes Current METSs:: 8.0 Target Heart Rate:: 104-136 Current RPE:: 13 Maximum Excercise HR:: 147 Resting Blood Pressure: 110/60 Maximum Exercise Blood Pressure: 150/84 EKG Type: NSR to sinus tachycardia w/out ectopy Current Physical Activity or Exercising minutes: 38:48 - Outcomes & Goals Goals:: Verbalizes understanding of THR, RPE & goal METS by session 6, Documents in home exercise log/reports 30 min aerobic 5 day/wk by DC, Demonstrates accurate pulse taking by DC - Intervention & Plan Exercise Program Goals: Instruct on personal THR & RPE, Instruct on MET level & personal MET goal, Show patient to take own pulse /validate performance until accurate, Instruct on home exercise - 30-day Reassessments 30 day Reassessments:: Progressing - Physical Activity Home Exercise Physical Activity - Home Exercise: Safe Exercise, Warm-up, Self-monitoring, Cool-Down, Home Exercise > 30 min Daily, Sitting Time <3 hours/daily - Outcomes & Goals Outcomes/Goals: Demonstrates correct Warm-up/exercise Cool-Down (S3) if = 2.5 METs, Verbalizes symptoms of exercise intolerance by Session 3 (S3), Demonstrate safe equipment use (S3) & follows exercise prescrition (6) - Intervention & Plan Plan/Intervention: Instruct warm-up & cool-down if exercising at > 2 METs, Instruct on symptoms of exercise intolerance & actions to take, Instruct & monitor on saf, Assess intial functional capacity & safety risk - 30-day Reassessments 30 day Reassessments:: Met Nutrition - Initial Assessment Nutrition - 30-Day Assessment - Program Goals Nutrition Program Goals: LDL <100 optimal. 100 - 129 Near optimal. 130 - 159 Borderline High. 160 - 189 High. Total Cholesterol <200 desirable. 200 - 239 Borderline High. >/= 240 High. HDL < 40 Low >/=60 High. Triglycerides <150 desirable. <199 optimal. VlDL 5 - 40. HgbA1C <7%. BMI <25 Patient has diagnosis of Hyperlipidemia (ICD E78)?: Yes - Visit Date of Assessment:: 03/18/22 Session #:: 13 - Last drawn 09/19/2021 - Cholesterol/Lipids (Other Core Measures) Determine presence & major risk factors that modify LDL goal: Hypertension or hypertensive medication, Family history of premature CHD in Male < 55 years: female <65 yearsFa Outcomes/Goals: Pt IDs own risk factors & lifestyle modifications by Session 10, Verbalizes symptoms of angina & response by session 3., Pt independently manages Intervention/Plan: Instruct on personal lipid levels & lipid goals/NCEP guidelines, Instruct on cholesterol Referral to dietitian:: Yes - Nutritional Service Medical Health Nutrition 30-day Reassessments:: Progressing - Diabetes (Other Core Measures) Diabetes Type: Not Applicable - Weight Mgt (Other Care) Not Applicable: Yes Height: 5 ft 10 in Weight:: 184 lb 8 oz BMI: 26.4 Diagnosis Overweight/Obesity BMI> 30% ICD-10 E66: No Outcomes/Goals: Pt sets, maintains & shows weight loss goal & trend during rehab Intervention/Plan: Instruct on ideal BMI & set weight loss goal w/patient 30 day Reassessments:: Met - Healthy Eating Habits Will attend diet classes:: Yes Outcomes/Goals:: Consume diet rich in vegs,fruits,whole grain/high fiber,fish,lean meat, Limit sat/trans fats,cholesterol & added salts & sugars Intervention/Plan:: Assess current eating habits 30-day Reassessments:: Progressing - Education Gave educational materials for:: Healthy eating Nutrition - 60-Day Assessment Nutrition - 90-Day Assessment Nutrition - Final Assessment Core - Initial Assessment Core - 30-Day Assessment - Visit Date of Eval: 03/18/22 Session #:: 13 - Medication Compliance Preventative Medication(s):: Aspirin, Ticagrelor/P2Y12 inhibitor, Statin/lipid, Beta trena H/O mental health issues: depression, anxiety, or addiction?: No Doesn?t believe in the benefits of treatment?: No Believes medications are unnecessary or harmful?: No Has a concern about medication side effects?: No Expresses concern over the cost of medications?: No Outcomes/Goals: Verbalizes medications,desired effect & common side effects @ DC, Pt self-reports following medication regimen, Keeps card in wallet w/medications listed by DC Interventions/plans: Instruct on medication effects & side effects, Review medication list w/patient every two weeks, Instruct importance of taking meds as ordered & assist problem solving 30-day Reassessments:: Progressing Reassessment Notes & Comments:: Metoprolol decreased to 25 mg daily. - Tobacco Use Tobacco Use: Non-smoker - Hypertension Hypertension Diagnosis:: Hypertension ICD-10 I10 Resting Blood Pressure:: 110/60 [place] [employer] Hypertension Guidelines: [place] [employer] Hypertension Guidelines. Normal BP Less than 120/80. Elevated BP 120/80. Hypertension Stage 1: BP 130-139/80-89. Hypertesnion Stage 2: BP 140 or higher/90 or higher. Hypertension Crisis: BP higher than 180/120 Peak Exercise Blood Pressure:: 150/84 Outcomes/Goals: Able to verbalize/achieve optimal blood pressure <130/80, Incorporates diet changes & exercise for blood pressure control by DC Interventions/plan: Instruct on optimal blood pressure, hypertension & medications, Instruct on effects of sodium, alcohol, stress, exercise &hypertension 30 day Reassessments:: Met - Tobacco Cessation Referral Smoking Cessation Referral:: No Individual Education/Counseling:: No Education Schedule Given:: Yes - Occasionally participates in education. Core - 60-Day Assessment Core - 90 Day Assessment Core - Final Assessment Psychosocial - Initial Assess Psychosocial - 30-Day Assess - VIsit Date of Eval: 03/18/22 Session #:: 13 Not Applicable: Yes History of previous Mental disease:: No - Psychosocial Test Tool Used:: PHQ-9 Questionnaire phq-9 Severity: Severity. 1-4 Minimal Depression. 5-9 Mild Depression. 10-14 Moderate Depression. 15-19 Moderately Sever Depression. 20-27 Severe Depression. Rule: - Referral to Behavioral Health PS - Interventions: Yes Attend Stress Management Classes, No Referral to Behavioral Health if PHQ-9 score >9:, No Referral to [facility], No Referral to Physician if PHQ-9 if score is 5-9: - Outcomes/Goals: See list Psychosocial Outcomes/Goals:: ID's personal stressors & 2 strategies to manage stress by discharge - Intervention/Plan: See List Interventions/Plan:: Assess stressors,coping strategies & signs of derpression on admission, Instruct/assist pt to develop coping & personal stress Mgt strategies, Instruct patient to recognize signs & symptoms of depression, Instruct patient to recog - 30-day Reassessments: 30 day Reassessments:: Met Psychosocial - 60-Day Assess Psychosocial - 90-Day Assess Psychosocial - Final Assessmen Patient Health Questionnaire 30-Day Re-eval Assessment 1. Little interest or pleasure in doing things: Not at all 2. Feeling down, depressed, or hopeless: Not at all 3. Trouble falling or staying asleep, or sleeping too much: Not at all 4. Feeling tired or having little energy: Not at all 5. Poor appetite or overeating: Not at all 6. Feeling bad about yourself -- or that you are a failure or have let yourself or your family down: Not at all 7. Trouble concentrating on things, such as reading the newspaper or watching television: Not at all 8. Moving or speaking so slowly that other people could have noticed. Or the opposite - being so fidgety or restless that you have been moving around a lot more than usual: Not at all 9. Thoughts that you would be better off , or of hurting yourself in some way: Not at all How difficult have these problems made it for you to do your work, take care of things at home, or get along with other people?: Not difficult at all Total Score: 0 Self-Efficacy 30-Day Re-eval Assessment We would like to know how confident you are in doing certain activities. Please select your confidence level for:: Select your confidence level for the following using the scale 1-10 where 1 is not at all confident and 10 is totally confident. Your score is the average of all 6 responses. Fatigue: How confident are you that you can keep the fatigue caused by your disease from interfering with the things you want to do? Select Number: 10 Physical Discomfort or Pain: How confident are you that you can keep the physical discomfort or pain of your disease from interfering with the things you want to do? Select Number: 10 Emotional Distress: How confident are you that you can keep the emotional distress caused by your disease from interfering with the things you want to do? Select Number: 10 Other Symptoms or Health Problems: How confident are you that you can keep other symptoms or health problems from interfering with the things you want to do? Select Number: 10 Different Tasks and Activities: How confident are you that you can do the different tasks and activities needed to manage your health condition so as to reduce your need to see a doctor? Select Number: 10 Medication: How confident are you that you can do things other than just taking medication to reduce how much your illness affects your everyday life? Select Number: 10 Total Score:: 10 Nutrition Survey
[2022-03-18 07:30] VITALS: BP 110/60; BP 150/84; BMI 26.4
== END 2022-03-27 23:59 ==
LOC: CR 08:00
PROVIDERS: PCP Internal Medicine; Referring Provider Internal Medicine Cardiovascular Disease; Visit Provider Internal Medicine Cardiovascular Disease
DX: Z95.5 Presence of coronary angioplasty implant and graft (principal); I25.10 Atherosclerotic heart disease of native coronary artery without angina pectoris
CPT/HCPCS: 93798

== ENCOUNTER → 2022-04-04 | Outpatient (CLI) | payer OTHER, SELFPAY ==
[2022-03-18 07:30] VITALS: BMI 26.4
--- NOTE | 2022-04-04 15:07 | RAD_ITS ---
STUDY: XR Shoulder Min 2 Views REASON FOR EXAM: Male, 51 years old. left shoulder pain TECHNIQUE: XR Shoulder Min 2 Views LEFT COMPARISON: None. FINDINGS: Normal glenohumeral articulation. Normal acromioclavicular joint. Normal acromion. Normal humeral head and visualized proximal humerus. The soft tissue structures are unremarkable. Normal visualized pulmonary apex. RAD/Shoulder min 2 Views IMPRESSION: There are no acute findings of the shoulder. Electronically Signed: Hugh Frey MD at 20:56 EST ,
== END | disposition home or self-care (01) ==
LOC: RAD 15:05
PROVIDERS: PCP Internal Medicine; Referring Provider Nurse Practitioner Family; Visit Provider Nurse Practitioner Family
DX: M25.512 Pain in left shoulder (principal)
CPT/HCPCS: 73030

== ENCOUNTER 2022-04-08 08:00 | Outpatient (RCR) | payer OTHER, SELFPAY ==
[2022-03-28 00:34] VITALS: BP 110/60; BP 150/84
== END 2022-04-27 23:59 ==
LOC: CR 08:00
PROVIDERS: PCP Internal Medicine; Referring Provider Internal Medicine Cardiovascular Disease; Visit Provider Internal Medicine Cardiovascular Disease
DX: I25.10 Atherosclerotic heart disease of native coronary artery without angina pectoris (principal); Z95.5 Presence of coronary angioplasty implant and graft
CPT/HCPCS: 93798

== ENCOUNTER → 2022-06-03 | Outpatient (CLI) | payer OTHER, SELFPAY ==
--- NOTE | 2022-06-03 13:15 | RAD_ITS ---
STUDY: X-RAY - LEFT ELBOW REASON FOR EXAM: Male, 52 years old. Lateral epicondylitis of left elbow. TECHNIQUE: 3 view(s) of the elbow. COMPARISON: None. FINDINGS: Normal visualized humerus, radius and ulna. Normal radiocapitellar and ulnotrochlear articulations. The soft tissue structures are unremarkable. RAD/Elbow min 3 Views IMPRESSION: Normal x-ray examination of the elbow. Electronically Signed: Oh Taylor, at 13:41 EST ,
== END | disposition home or self-care (01) ==
LOC: RAD 13:13
PROVIDERS: PCP Internal Medicine; Visit Provider Orthopaedic Surgery
DX: M77.12 Lateral epicondylitis, left elbow (principal)
CPT/HCPCS: 73080

== ENCOUNTER → 2022-07-24 | Outpatient (CLI) | payer OTHER, SELFPAY ==
--- NOTE | 2022-07-24 08:59 | ECHOD_ITS ---
Reason For Study: DECREASED LV FUNCTION Procedure This was a 2D Doppler, Color Flow transthoracic echocardiogram. Exam performed in department. Left Ventricle Normal LV size. Left ventricular systolic function is normal. The estimated ejection fraction is 60 %. No regional wall motion abnormalities noted. Right Ventricle Normal RV size. Normal systolic function. Atria Normal left atrium. Normal right atrium. Mitral Valve Normal mitral valve. Tricuspid Valve Normal tricuspid valve. Mild tricuspid valve insufficiency. Pulmonary artery systolic pressure is 26 mmHg. Aortic Valve Trisinus/trileaflet aortic valve. Pulmonic Valve Normal pulmonic valve. Great Vessels Normal aortic root. The pulmonary artery is normal size. Normal inferior vena cava. Pericardium/Pleural No pericardial effusion. MMode/2D Measurements & Calculations LVIDd: 4.4 cm IVSd: 0.89 cm Ao root diam: 3.4 cm LVIDs: 3.0 cm LVPWd: 0.80 cm RVDd: 3.1 cm FS: 33.0 % LAV(MOD-bp): 25.5 ml LVAd ap4: 26.6 cm2 SV(MOD-sp4): 49.0 ml LAV(MOD-bp) Indexed: 12.6 ml/m2 LVLd ap4: 7.6 cm LAV(MOD-sp2): 23.5 ml EDV(MOD-sp4): 77.2 ml LAV(MOD-sp4): 26.6 ml EDV(sp4-el): 78.8 ml LVAs ap4: 14.5 cm2 LVLs ap4: 6.4 cm ESV(MOD-sp4): 28.2 ml ESV(sp4-el): 28.0 ml EF(MOD-sp4): 63.5 % EF(sp4-el): 64.4 % SV(sp4-el): 50.7 ml LA A4 area: 12.3 cm2 LA dimension(2D): 3.3 cm RA A4 area: 13.0 cm2 Time Measurements MV dec time: 0.18 sec Doppler Measurements & Calculations MV E max bradly: 61.5 cm/sec Lat Peak E' Bradly: 12.4 cm/sec Med Peak E' Bradly: 10.5 cm/sec MV A max bradly: 54.1 cm/sec E/E' lat: 4.9 E/E' med: 5.8 MV E/A: 1.1 Ao V2 max: 93.6 cm/sec LV V1 max: 88.5 cm/sec PA V2 max: 92.7 cm/sec Ao max P.5 mmHg LV V1 max P.1 mmHg TR max bradly: 237.6 cm/sec TR max P.6 mmHg ECHO/Echo Complete Interpretation Summary Normal LV size. Left ventricular systolic function is normal. The estimated ejection fraction is 60 %. Mild tricuspid valve insufficiency. Ordering Physician: Chelo Nascimento/Chance Lynn Referring Physician: JOSSUE VASQUEZ Performed By: Sindy Couch RDCS
== END | disposition home or self-care (01) ==
LOC: CVS 08:59
PROVIDERS: PCP Internal Medicine; Referring Provider Physician Assistant Medical; Visit Provider Physician Assistant Medical
DX: I51.9 Heart disease, unspecified (principal)
CPT/HCPCS: 93306

== ENCOUNTER → 2023-01-01 | Outpatient (CLI) | payer OTHER, SELFPAY ==
[2023-01-01 14:46] VITALS: BMI 26.4
[2023-01-01 18:15] LABS: Rubella IgG Reactive (Nonreactive)
[2023-01-03 06:09] LABS: Mumps Antibody,IgG 64.7 AU/mL (Immune >10.9); V-Zoster IgG (Immunity) 2122 index (Immune >165)
== END | disposition home or self-care (01) ==
LOC: MTLAB 15:27
PROVIDERS: PCP Internal Medicine; Referring Provider Physician Assistant Surgical; Visit Provider Physician Assistant Surgical
DX: Z02.1 Encounter for pre-employment examination (principal)
CPT/HCPCS: 36415; 86735; 86762; 86787

== ENCOUNTER → 2024-01-08 | Outpatient (CLI) | payer OTHER, SELFPAY ==
[2023-04-03 15:13] VITALS: BMI 26.4
== END | disposition home or self-care (01) ==
LOC: LABSPEC 15:59
PROVIDERS: PCP Internal Medicine; Referring Provider Surgery; Visit Provider Surgery
DX: Z01.818 Encounter for other preprocedural examination (principal); K40.90 Unilateral inguinal hernia, without obstruction or gangrene, not specified as recurrent
CPT/HCPCS: 87077; 87081

== ENCOUNTER → 2024-01-23 | Outpatient (CLI) | payer OTHER, SELFPAY ==
[2023-04-03 15:13] VITALS: BMI 26.4
--- NOTE | 2024-01-23 15:32 | CT_ITS ---
EXAM: CT ABDOMEN AND PELVIS WITH INTRAVENOUS CONTRAST CLINICAL INDICATION: left inguinal hernia TECHNIQUE: Helically acquired images were obtained of the abdomen and pelvis with intravenous contrast. This CT exam was performed using one or more of the following dose reduction techniques: automated exposure control, adjustment of the mA and/or kV according to patient size, and/or use of iterative reconstruction technique. CONTRAST: Oral and amp; IV Readi-CAT and amp; 100mL Isovue-370 COMPARISON: No relevant prior studies available. FINDINGS: LOWER THORAX: Unremarkable. Lung bases are clear. No cardiomegaly. No significant pericardial effusion. ABDOMEN: LIVER: Unremarkable. Homogeneous. No focal mass. GALLBLADDER AND BILE DUCTS: Unremarkable. No calcified gallstones. No gallbladder distention or wall edema. No intra- or extrahepatic biliary ductal dilation. PANCREAS: Unremarkable. No focal cystic or solid mass. SPLEEN: Unremarkable. Normal size without focal cystic or solid mass. ADRENALS: Unremarkable. No nodules. KIDNEYS AND URETERS: There are low-density masses in both kidneys compatible with simple cysts. No follow-up imaging is necessary. No hydronephrosis. STOMACH AND BOWEL: There is a large fat-containing left inguinal hernia. There are no bowel in the hernia sac. There is sigmoid diverticulosis with no evidence of diverticulitis. No stomach or bowel distention. PELVIS: APPENDIX: No evidence of acute appendicitis. BLADDER: Unremarkable. REPRODUCTIVE: Unremarkable as visualized. No mass. ABDOMEN and PELVIS: INTRAPERITONEAL SPACE: Unremarkable. No ascites or other fluid collection. No free air. BONES/JOINTS: Unremarkable. No suspicious lytic or blastic abnormality. SOFT TISSUES: See above. VASCULATURE: Unremarkable. Abdominal aorta is non-dilated. LYMPH NODES: Unremarkable. No enlarged lymph nodes. CT/Abdomen/Pelvis WITH Contrast IMPRESSION: Large fat-containing left inguinal hernia. There are no bowel loops present. No other acute abnormalities are identified. Electronically Signed: Lisandro Fernandes MD at 0:14 EDT ,
[2024-01-23 16:03] LABS: CREATININE FINGERSTICK < 1.0 mg/dL (0.70-1.30); EGFR FINGERSTICK > 60.0000 mL/min (>60)
== END | disposition home or self-care (01) ==
LOC: CT 15:30
PROVIDERS: Referring Provider Surgery; Visit Provider Surgery
DX: K40.90 Unilateral inguinal hernia, without obstruction or gangrene, not specified as recurrent (principal)
CPT/HCPCS: 74177; Q9967

== ENCOUNTER 2024-02-02 05:57 | Day surgery (SDC) | payer OTHER, SELFPAY ==
[2023-04-03 15:13] VITALS: BMI 26.4
--- NOTE | 2024-01-29 07:29 | EKG12_ITS ---
Test Reason : PREOP Blood Pressure : / mmHG Vent. Rate : 056 BPM Atrial Rate : 056 BPM P-R Int : 160 ms QRS Dur : 082 ms QT Int : 406 ms P-R-T Axes : 039 031 037 degrees QTc Int : 391 ms Sinus bradycardia with sinus arrhythmia Otherwise normal ECG Confirmed by JESSICA MONIQUE, ZAK ([id number]), deputy editor in chief VALENTINE HOANG ([id number]) on 01/30/2024 11:51:16 AM Referred By: Isra Jiménez Confirmed By:ZAK LOPEZ MD
[2024-01-29 08:10] LABS: Hematocrit 46.1 % (40-54); Hemoglobin 15.8 g/dL (13.0-16.5); Mean Corp Hgb Conc 34.3 g/dL (32-36); Mean Corpuscular Hgb 30.7 pg (27.0-32.0); Mean Corpuscular Volume 89.7 fL (80-94); Mean Platelet Vol. 9.3 fl (6.2-12.0); Platelet Count 227 K/mm3 (150-450); RBC Distribution Width CV 13.1 % (11.6-14.6); Red Blood Count 5.14 M/mm3 (4.6-6.2); White Blood Count 6.9 K/mm3 (4.4-11.0)
[2024-01-29 10:33] LABS: Anion Gap 3 (5-15); BUN 16 mg/dL (7-18); BUN/Creat Ratio 13.9 RATIO (10-20); Calcium,Total 8.8 mg/dL (8.5-10.1); Chloride 107 mmol/L (98-107); Creatinine, Serum 1.15 mg/dL (0.70-1.30); EST Glomerular Filtration Rate 71 mL/min (>60); Est Glom Filt Rate - Afr Amer 86 mL/min (>60); Glucose 99 mg/dL (74-106); Potassium 3.7 mmol/L (3.5-5.1); Sodium Level 138 mmol/L (136-145)
[2024-02-02] VITALS (9 sets, daily range): BP systolic 97–136; BP diastolic 65–91; PULSE 57–84; RESP 16; TEMP 36.1–37; O2SAT 94–100; BMI 28.1
[2024-02-02] MEDS: Lactated Ringers 1,000 ML 15 ML IV (07:03)
--- NOTE | 2024-02-02 07:14 | HP.PCM_ITS ---
History and Physical Date of Admission: 02/02/24 Date of Service: 01/08/24 MR#: [id number] Acct: [id number] Name: NIK NESS Rep #: [id number] : 1970 Provider: Dr. Isra Jiménez MD Age/Sex: 53/M Location: [facility] Status: Signed Intake Vital Signs 07/23/2412:42 01/07/2414:02 Height 5 ft 10 in 5 ft 10 in Weight: 196 lb BMI 28.1 BP 133/89 H Blood Pressure Location Rt brachial Position Sitting Respiration 17 Pulse 80 Pulse Source Monitor Pulse Oximetry (%) 97 Oxygen Delivery Method room air Intake Visit Reasons: HERNIA, SELF REFERRING Chief Complaint: hernia, self referred Is patient in pain?: Yes Allergies bee venom protein (honey bee) Adverse Reaction (Severe, Verified 01/08/24 14:07) Anaphylaxis Medications ?Medication ?Instructions ?Recorded ?Confirmed ?Type aspirin 81 mg tablet,delayed 81 mg PO DAILY 11/30/21 01/08/24 History release (Adult Aspirin Regimen) rizatriptan 10 mg tablet See Rx Instructions .Route 08/27/22 01/08/24 Rx .COMPLEX #10 tabs atorvastatin 80 mg tablet 80 mg PO QHS #90 tabs 07/24/23 01/08/24 Rx metoprolol succinate 25 mg 25 mg PO DAILY #90 tabs 09/17/23 01/08/24 Rx tablet,extended release 24 hr omeprazole magnesium 20 mg 20 mg PO QDAY PRN 01/08/24 01/08/24 History tablet,delayed release (Prilosec OTC) ticagrelor 90 mg tablet (Brilinta) 90 mg PO BID 01/08/24 01/08/24 History PFSH Medical History Trigger thumb, right thumb Lateral epicondylitis of left elbow Left anterior shoulder pain Atherosclerosis of coronary artery without angina pectoris Elevated coronary artery calcium score Abnormal nuclear stress test Abnormal findings diagnostic imaging of heart and coronary circulation Colon cancer screening Family history of coronary artery disease in grandfather Family history of coronary artery disease in father Family history of coronary artery disease Surgical History History of coronary artery stent placement (01/07/22) History of left heart catheterization (01/02/22) Family History Father Myocardial infarction, Onset Age: 43 CAD (coronary artery disease) CABG ICD HypertensionGrandmother No problems noted. Grandfather Myocardial infarction, Onset Age: 61Other Diabetes Rheumatoid arthritis Social History Smoking Status: Never smoker alcohol intake: current alcohol intake frequency: a few times a week Alcohol type: beer and hard liquor substance use type: does not use HPI HPI HPI: Patient is a 53-year-old male who presents for complaint of a new left inguinal hernia. This finding was first noticed by patient spring and he shares that it is progressively become more symptomatic over the summer. Patient is not able to recall how this occurred. 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 When asked to describe this further he shares that it is simply uncomfortable with the hernia. He denies any change to his bowel habits. He denies any previous experience with that hernia in this location. Patient has no personal history of smoking. Patient has no personal history of recurrent cutaneous infections including staph. Pertinent surgical history includes: Drug-eluting stent placement times 29 December 2021 after 98% occlusion of the LAD discovered with left heart cath. Patient remains on Brilinta therapy following the stenting. He denies any present (or past) chest pain or shortness of breath ROS General General: No weight change, appetite, fatigue, colon cancer, breast cancer or weakness HEENT HEENT: No difficulty swallowing, eye injury, eye surgery, swollen glands or hoarseness Endo Endocrine: No thyroid disease, diabetes mellitus, thyroid cancer, Hair loss, heat intolerance or cold intolerance Skin Skin: No rash or changing moles Musc Musculoskeletal: No back problems, arthritis, rheumatoid arthritis, gout or j oint pain Cardio Cardiovascular: Yes heart disease and heart stent; No murmur, pacemaker, atrial fibrillation, high blood pressure, heart attack, palpitations, shortness of breat with exertion or chest pain Psych Psychiatric: No depression, anxiety or hearing voices Resp Respiratory: No shortness of breath, No sleep apnea, No cough, No COPD, No asthma, No emphysema and No wheezing Gastro Gastrointestinal: No abdominal pain, No nausea or vomiting, No diarrhea, No constipation, No blood in stool, No acid reflux, No hemorrhoids, No ulcers, No gallbladder problem and No black,tarry stools Joshua Hematologic: Yes blood thinners, No blood disorders, No bleeding, No anemia and No blood clots Neuro Neurologic: No system reviewed and no additional complaints, except as documented, No as per HPI, No abnormal gait, No abnormal hearing, No abnormal mo vements, No abnormal speech, No behavioral changes, No burning sensations, No confusion, No convulsions, No disequilibrium, No dizziness, No localized weakness, No frequent falls, No headache(s), No lack of coordination, No loss of vision, No memory loss, No numbness, No other visual disturbances, No radicular pain, No restless legs, No sensory deficit, No syncope, No tingling, No tremor(s), No weakness and No other Exam Const General: cooperative, healthy appearing and no acute distress Nutritional Appearance: average body habitus Orientation: alert, awake and oriented x3 Resp Effort & Inspection: normal respiratory effort GI Other: Hirsute, no scars, small (subcentimeter) umbilical hernia that is nontender, soft, nondistended, nontender x 4 quadrants palpation Other: Bilaterally descended testicles with obvious bulge protruding into the left hemiscrotum. This bulge is reducible with traction. With the patient's habitus is slightly difficult to determine the origin but appears to be coming from an indirect course. Assessment and Plan Assessment and Plan (1) Left inguinal hernia: Status: Acute Comment: Patient 53-year-old male presenting for for surgical consultation related to left inguinal hernia that began somewhat insidiously spring of this year. Has become more symptomatic and larger so he is interested in elective repair. On exam this appears to represent a indirect inguinoscrotal hernia. It is difficult to determine what the contents of this hernia may be. Thus I am recommending advanced imaging. With this exam finding I offer a minimally in vasive repair with mesh placement and discussed the details of the operation as well as the postoperative activity restrictions. Mr. Ness expresses interest but is concerned about it interfering with his school schedule which has him in class for 10 weeks at a time with 2-week break intervals (he is presently in the break interval). I have asked him to try to creatively consider how he might achieve a necessary activity reprieve while still attending to his responsibilities. He expresses most concerned about his duties as a nurse here at the hospital. In addition to the above we will have to find approval to hold Mr. Lincoln Brilinta preop. Lastly, I did share that I would plan to consent him for possible bilateral hernia repair as somewhere around 20% of unilateral hernia repairs do make an incidental finding of a contralateral hernia. Mr. Lincoln expresses agreement with this course of action and also asks about the necessity of proceeding with any repairs on his umbilical hernia. I shared that a primary repair would be possible but he insist that it is been asymptomatic and today's discussion was the first he is considered this finding. Plan: ? Tentative plans for robot-assisted left inguinal hernia repair with mesh ? CT imaging of the abdomen pelvis with p.o. and IV contrast to assess for hernia contents ? Seek cardiac clearance and approval to hold Brilinta therapy for proposed above operation ? MRSA swab of the nares Interval: Patient seen and examined in preop. He underwent CT imaging that shows a moderately large left inguinoscrotal hernia. Discussed higher likelihood for bruising with this situation. He denies any additional clinical updates. Postprocedure instructions reviewed. Proceed to OR for left poss bilateral hernia repair.
--- NOTE | 2024-02-02 07:28 | PCM.PRE.AN2 ---
ASA Classification* ASA Classification ASA Classification: 3 Assessment & Plan Anesthesia* Anesthesia Assessment Anesthesia Assessment: Discussed sedation and/or anesthesia options, risks, benefits, and alternatives with patient/parents/legal guardian/POA. Questions invited. The patient/parents/legal guardian/POA seems to understand and agrees to proceed with anesthesia plan. Reviewed the physical assessment, medical history, allergy history and patient home medications list prior to surgery/procedure/anesthetic and documented any changes. Performed airway and anesthesia risk assessments. Anesthesia Type Anesthesia Type: General Anesthesia Focused Assessment* Temperature: 98.6 F Pulse Rate: 57 Blood Pressure: 136/91 Respiratory Rate: 16 Pulse Ox: 98 Airway Assessment Mouth opens: >3 cm Mallampati Score: II Focused Labs Anesthesia Preop lab: CBC WBC 6.9 K/mm3 (4.4-11.0) 01/29/24 07:53 RBC 5.14 M/mm3 (4.6-6.2) 01/29/24 07:53 Hgb 15.8 g/dL (13.0-16.5) 01/29/24 07:53 Hct 46.1 % (40-54) 01/29/24 07:53 Plt Count 227 K/mm3 (150-450) 01/29/24 07:53 CHEMISTRY Potassium 3.7 mmol/L (3.5-5.1) 01/29/24 07:53 Sodium 138 mmol/L (136-145) 01/29/24 07:53 Phosphorus 3.5 mg/dL (2.5-4.9) 01/01/23 15:31 BUN 16 mg/dL (7-18) 01/29/24 07:53 Creatinine 1.15 mg/dL (0.70-1.30) 01/29/24 07:53 Glucose 99 mg/dL (74-106) 01/29/24 07:53 COAG Pre-Assessment Diagnosis/Proposed Procedure Planned Operative Procedure(s): (L) Lap Robotic left Inguinal Hernia poss bilateral w/mesh Anesthesia History Anesthesia History - [facility]: Anesthesia History - [facility] Hx Hospitalization No 01/23/24 08:23 Any Problems With Anesthesia No 01/23/24 08:23 Cholinesterase deficiency No 01/23/24 08:23 You/Your Family Experience No 01/23/24 08:23 fever (hyperthermia) with Relationship Recent Exposure to Contagious No 02/02/24 06:44 Disease Does patient have nerve No 01/23/24 08:23 stimulator Patient instructed to have device shut off --Does patient have Pacemaker No 02/02/24 06:47 or ICD? When Was Last Pacemaker Check QUESTION #4 FULL TEXT: You/Your Family Experience fever (hyperthermia) with Anesthesia Last Oral Intake Last Oral intake: Last Oral Intake NPO since 22:00 02/02/24 06:47 Meds taken in AM with sips of No 02/02/24 06:47 water? Meds patient instructed to take am of surgery PONV PONV - [facility]: PONV - [facility] Female No 01/23/24 08:23 HX of Motion Sickness Yes 01/23/24 08:23 HX of N/V After Surgery No 01/23/24 08:23 Non-Smoker Yes 01/23/24 08:23 Duration of Surgery greater Yes 01/23/24 08:23 than 60 minutes Number of Risk Factors 3 01/23/24 08:23 PONV Score Moderate Risk 01/23/24 08:23 Height & Weight Height & Weight: Anesthesia: Height & Weight Height 5 ft 10 in 02/02/24 06:47 Weight: 89 kg 02/02/24 06:47 Body Mass Index (BMI) 28.1 02/02/24 06:47 Respiratory Assessment Respiratory Assessment - [facility]: Respiratory Tract Infection Hx - [facility] Hx Respiratory Tract Infection No 01/23/24 08:23 STOP Sleep Apnea STOP Sleep Apnea - [facility]: STOP Sleep Apnea - [facility] Hx Hypertension Yes: CONTROLLED WITH MED 01/23/24 08:23 Hx Sleep Apnea No 01/23/24 08:23 CPAP BIPAP Do you snore loudly (louder No 01/23/24 08:23 than talking or can be heard Do you often feel tired/ No 01/23/24 08:23 fatigued/ sleepy during daytime? Has anyone observed you stop No 01/23/24 08:23 breathing during sleep? STOP Results Negative 01/23/24 08:23 QUESTION #5 FULL TEXT : Do you snore loudly (louder than talking or can be heard through closed doors)? Tobacco Use History Tobacco Use History - [facility]: Tobacco Use History - [facility] Tobacco Use Smoking Status Never smoker 01/23/24 08:23 Hx Tobacco Use No 01/23/24 08:23 Years Smoking Packs Smoked per Day Smoking Cessation Date was within the last 15 years Hx Smoking Cessation Date Hx Smoking Cessation Counseling Hematologic Medial History Hematologic Hx - [facility]: Hematologic Medical Hx - bottle hop Hx of Blood Transfusion No 01/23/24 08:23 Hx of Transfusion in last 3 No 01/23/24 08:23 Months Date of Last Transfusion (if within last 3 months) Ever experience any problems No 01/23/24 08:23 with transfusion(s)? Specify any problems Hx of Preganancy in last 3 N/A 01/23/24 08:23 Months Nurse Filling Out Transfusion NBUCHER 01/23/24 08:23 & Questions: Date: 01/23/24 01/23/24 08:23 Time: 08:24 01/23/24 08:23 Patient unable to answer at this time (ie. confused, unrespo /Reproduction History /Reproductive History - [facility]: /Reproductive Hx- [facility] Hx Now No 01/23/24 08:23 Gestational Age (in weeks): EDC: Hx Hx Para Hx Section SAB No 01/23/24 08:23 Active Medications Active Medications: Current Medications Generic Name Dose Route Start Last Admin Trade Name Freq PRN Reason Stop Dose Admin Cefazolin Sodium 2 gm/ Sodium 110 mls @ 150 mls/hr 02/02/24 08:00 Chloride IV 02/02/24 08:43 PREOP ONE Lactated Ringer's 1,000 mls @ 15 mls/hr 02/02/24 06:15 02/02/24 07:03 IV 15 mls/hr .Q48H REBEKAH Administration PFSH Medical History Wears glasses Wears partial dentures Alcohol use History of steroid therapy High cholesterol Non-smoker Heartburn Gastric reflux History of stress test History of echocardiogram Cardiology follow-up encounter Hypertension Trigger thumb, right thumb Lateral epicondylitis of left elbow Left anterior shoulder pain Atherosclerosis of coronary artery without angina pectoris Elevated coronary artery calcium score Abnormal nuclear stress test Abnormal findings diagnostic imaging of heart and coronary circulation Colon cancer screening Family history of coronary artery disease in grandfather Family history of coronary artery disease in father Family history of coronary artery disease Home Medications ?Medication ?Instructions ?Recorded ?Last Taken ?Type aspirin 81 mg tablet,delayed 81 mg PO DAILY 11/30/21 02/01/24 History release (Adult Aspirin Regimen) atorvastatin 80 mg tablet 80 mg PO QHS #90 tabs 07/24/23 02/01/24 Rx omeprazole magnesium 20 mg 20 mg PO QDAY PRN GERD 01/08/24 Unknown History tablet,delayed release (Prilosec OTC) ticagrelor 90 mg tablet (Brilinta) 90 mg PO BID 01/08/24 01/27/24 History chlorhexidine gluconate 4 % 1 applic topical ONCE #473 mL 01/12/24 02/01/24 Rx topical liquid (Hibiclens) mupirocin 2 % topical ointment 1 applic topical BID #15 grams 01/12/24 02/02/24 Rx lansoprazole 15 mg capsule,delayed 15 mg PO DAILY 02/02/24 Unknown History release metoprolol succinate 25 mg 25 mg PO QHS 02/02/24 02/01/24 History tablet,extended release 24 hr rizatriptan 10 mg tablet See Rx Instructions .Route 02/02/24 Unknown History .COMPLEX PRN migraine headache Allergy/AdvReac Type Severity Reaction Status Date / Time bee venom protein (honey bee) AdvReac Severe Anaphylaxis Verified 02/02/24 06:30 Family History Father Myocardial infarction, Onset Age: 43 CAD (coronary artery disease) CABG ICD Hypertension Grandmother No problems noted. Grandfather Myocardial infarction, Onset Age: 61 Other Diabetes Rheumatoid arthritis Surgical History History of cardiac catheterization History of coronary artery stent placement (01/07/22) History of left heart catheterization (01/02/22) Social History Smoking Status: Never smoker alcohol intake: current alcohol intake frequency: a few times a week Alcohol type: beer and hard liquor substance use type: does not use Review of Systems (Anesthesia) ROS Narrative System reviewed and no additional complaints, except as documented.
--- NOTE | 2024-02-02 07:30 | LIP_PTH ---
PATIENT: NIK NESS LOC: [facility] U#:[id number] AGE/SX: 53/M ROOM: RE02/02/[address]: Dr. Isra Jiménez MD : 1970 BED: DIS: 02/02/2024 SPEC #: [id number] RECD: 02/02/24 11:07 STATUS: MAXIMO BHATIA #: [id number] LIM[place]: 02/02/24 07:[address]: Isra Jiménez DEPT: SURGICAL PATHOLOGY RECD BY: Jeff Dumont ENTERED: 02/02/24 11:38 SP TYPE: LIPOMA OTHR DR: Dr. Brian Dave MD No Primary Care Phys Tissues: Soft tissues, NOS Procedures: Surgery Specimen Level III HEADER OPERATION: Laparoscopic robotic left inguinal hernia with mesh PRE-OP DIAGNOSIS: Left inguinal hernia TISSUE SUBMITTED: Left cord lipoma MICROSCOPIC DIAGNOSIS Left cord lipoma, excision: Mature adipose tissue, consistent with lipoma. SJ.mr 02/03/2024 MICROSCOPIC DESCRIPTION Slides are reviewed. GROSS DESCRIPTION Received in fixative is one container labeled with the patient's name and designated Left cord lipoma. The specimen consists of a piece of adipose tissue measuring 1.4 x 1.0 x 0.2cm. The entire specimen is submitted in one cassette. 02/02/2024 TC:1 CPT:00525
[2024-02-02] MEDS: Cefazolin 2 GM in 0.9% Normal Saline (100mL Bag) 100 ML IV (07:32)
[2024-02-02] MEDS: Bupiv/Epi 0.25% 30 ML Vial (10:27)
--- NOTE | 2024-02-02 10:29 | OP.PCM_ITS ---
Report of Operation Date of Procedure: 02/02/24 Pre-Operative Diagnosis: Left inguinoscrotal (indirect type) hernia Post-Operative Diagnosis: Same Surgery/Procedure Performed:: Robot-assisted transabdominal preperitoneal left inguinal hernia repair with mesh Surgeon: Isra Jiménez public health nurse: Godfrey Hartley Type of Anesthesia: General/Supplemental Anesthesiologist: Brian Dave Specimen's removed: Left cord lipoma Drains: None Estimated Blood Loss (mL): 15 Description of Procedure: After appropriate identification in the preoperative holding area the patient was brought to the operating room where he was positioned supine on the operating table. Preoperative antibiotics were completed and the patient was administered a general anesthetic. Patient's abdomen was then prepped and draped in usual sterile fashion. Formal timeout followed to confirm patient and procedure. Procedure was begun with an optical entry facilitated by Veress insufflation at Henderson's point. Once pneumoperitoneum reached a set point pressure of 12 mmHg (patient did experience a brief bradycardic episode with initial insufflation to 15 mmHg but this was quickly treated by anesthesia and desufflation without subsequent issue) the Veress needle was withdrawn and an optical entry was made with a robotic trocar through that incision site. Laparoscopic visualization confirmed no inadvertent injury to the viscera below and 2 additional ports were placed in the right upper quadrant and paramedian positions, respectively, after instillation of local anesthetic. Patient was positioned in slight Trendelenburg and I performed a local block of the left ilioinguinal nerve using 4 mL local anesthetic under laparoscopic visualization. The robot was docked in standard fashion. In this positioning I could visualize a large indirect abdominal wall defect. The right side was examined but no hernia was visualized. Robotically, a peritoneal flap was created on the left extending from the medial umbilical ligament to the level of the ASIS (external) and was bluntly dissected to expose the medial parietal compartment and lateral visceral compartments. Medially I could visualize the pubic tubercle and Jeremiah's ligament while laterally I extended the dissection down to the level of the ASIS. The hernia sac was identified and from the cord structures deeply with selective use of monopolar energy. A small cord lipoma was identified and removed with monopolar energy. Beyond this, I did not visualize a direct or obturator defect. The peritoneal flap was inspected to ensure that cord was appropriately parietalized and there was no pulling of the cord structures or the viscera deeply over the psoas using the pull test. Once satisfied, a Bard 3D max, size large, mid weight mesh was placed into the abdomen along with suture. It was positioned within the preperitoneal pocket so that there was good medial and inferior overlap. It was then tacked to the Jeremiah's ligament and along the admuniculum of the linea alba as well as and laterally in a partial-thickness bite of the abdominal wall using a 3-0 Vicryl suture. The peritoneal flap was then closed with a running 3-0 V-Loc suture taking care to conceal the barbs of the suture beneath the peritoneum. Once the flap closure was complete, I undertook repair of a peritoneal defect with 3-0 Vicryl. With the peritoneal defects closed, sutures were systematically removed from the peritoneum and the pneumoperitoneum was evacuated before removing the trocars. The port sites were closed at the skin with running 4-0 Monocryl in a subcuticular fashion. The skin closure was completed by the GORE STITCHER. Steri-Strips and OpSite's were used as dressings. Patient's testicles were returned to the scrotum and a supportive jockstrap was fitted. Patient was then awoken from anesthetic and transferred to PACU for ongoing recovery. Grafts/Implants Used: 3D Max MID LOT [id number], [id number] Complications None Admit VTE Documentation VTE Mechan Device Prophylaxis: SCD's Procedures Digestive 40xxx-49xxx: 05878 Lap ing hernia repair init
--- NOTE | 2024-02-02 10:32 | DCINST_ITS ---
Discharge Instructions Diet Discharge Diet: No restrictions Activity Discharge Activity: May Not Drive (While taking narcotic pain medication) and May Shower May shower in (days): 2 Ice area for (Minutes): 20 Lifting Restrictions: No lifting greater than 10 pounds for the next 5 weeks Dressing / Incision Call your doctor if your incision/area has: Continuous Slow Oozing, Increased Pain/ Swelling, Increased Redness, Foul Smelling Discharge and Swelling at the incision site Call your doctor if you observe: Fever of 101 or Higher, Inability to urinate and Inability to have a bowel movement Change Dressing in: 2 days (Please leave Steri-Strips intact until they fall off spontaneously or are taken off at your follow-up visit) Remove Dressing in: 2 days Cleanse incision/area with: Soap & Water and Keep Dressing Clean & Dry Follow Up Care Please Follow Up With: Isra Jiménez MD When: 10-14 days postop Test Results: Test results from this visit will be discussed in further detail at your follow- up appointment, if applicable. Discharge Plan Admission Primary Reason for Your Visit: Left inguinal hernia repair Attending Provider: Isra Jiménez Primary Care Provider: Care Physician,No Primary Consulting Providers: Brian Dave Instructions Additional Instructions / Restrictions: Please wait 48hours to resume Brilinta therapy Print Language: Macedonian Discharge Orders/Prescriptions Prescriptions: Continued atorvastatin 80 mg tablet 80 mg PO QHS Qty: 90 3RF omeprazole magnesium [Prilosec OTC] 20 mg tablet,delayed release (DR/EC) 20 mg PO QDAY PRN (Reason: GERD) Brilinta 90 mg tablet 90 mg PO BID lansoprazole 15 mg capsule,delayed release(DR/EC) 15 mg PO DAILY rizatriptan 10 mg tablet See Rx Instructions .ROUTE .COMPLEX PRN (Reason: migraine headache) Rx Instructions: SNEHAL 1 TABLET BY MOUTH AT ONSET OF HEADACHE, IF NO RELIEF MAY REPEAT 1 TABLET AFTER AT LEAST 2 HOURS, MAX 3 TABS/24 HOURS PRN; metoprolol succinate 25 mg tablet extended release 24 hr 25 mg PO QHS aspirin [Adult Aspirin Regimen] 81 mg tablet,delayed release (DR/EC) 81 mg PO DAILY mupirocin 2 % ointment 1 applic topical BID Qty: 15 0RF Rx Instructions: apply to qtip into bilateral nares BID for one week chlorhexidine gluconate [Hibiclens] 4 % liquid 1 applic topical ONCE Qty: 473 0RF Rx Instructions: shower with once daily for one week Other Ambulatory Orders: 12 Lead EKG (Routine) Timeframe: 20240126 Location: None Selected Ordered By: Dr. Brian Dave Referrals / Follow Up: Karol Douglas MD [Med Staff - Active Staff] - Disposition Disposition (needs filled in before D/C Order can be placed): Home, Self Care
--- NOTE | 2024-02-02 10:45 | PCM.POST.ANE ---
Anesthesia: Postop Eval I Current Vital Signs Temperature: 97 F Pulse Rate: 80 Blood Pressure: 104/65 Respiratory Rate: 16 Pulse Ox: 100 Oxygen Delivery Method: Simple Mask Oxygen Flow Rate (L/min): 6 Assessment Airway patent: Yes Spontaneous unlabored respirations: Yes Mental status: Asleep nausea: No Vomiting: No Anesthesia Complication: No Fluid Hydration Crystalloid volume administer (ml): 1,200 Total IV fluid infused: 1,200 Progress Note Anesthesia document: Postop Eval 1 completed: Yes
[2024-02-02] MEDS: oxyCODONE 5 MG Tablet PO (11:42)
--- NOTE | 2024-02-02 11:50 | POSTOPAN2_ITS ---
Anesthesia Postop Eval I Sum Postop Eval Completion status Anesthesia document: Postop Eval 1 completed: Yes Anesthesia Postop Eval I Summary Anesthesia Postop Eval I Summary: Anesthesia Postop Eval I: Assessment Summary Airway patent Yes 02/02/24 10:46 [employer] MANAGER.ERNESTINEOBMary Jo Spontaneous unlabored Yes 02/02/24 10:46 [employer] ASS[employer] MANAGER.RASHEEDA respirations Mental status Asleep 02/02/24 10:46 [employer] ASS[employer] MANAGER.RASHEEDA nausea No 02/02/24 10:46 [employer] MANAGER.RASHEEDA Vomiting No 02/02/24 10:46 CONDOM[employer] ASSOCIATION MANAGERMARIBELL Anesthesia Postop Eval I: Fluid Summary Crystalloid volume administer 1,200 02/02/24 10:46 [employer] ASS[employer]IATION MANAGER.RASHEEDA (ml) Colloids volume administered ( ml) Blood Product volume administered (ml) Total IV fluid infused 1,200 02/02/24 10:46 [employer] ASSOCI[employer] MANAGERMARIBELL Anesthesia Postop Eval I: Summary Notes Anesthesia Complication No 02/02/24 10:46 BRITTNY Anesthesia Complication Comment: Post-operative progress note Anesthesia: Postop Eval II Evaluation Mental status: Awake Pain Level: 0 nausea: No Vomiting: No
--- NOTE | 2024-02-02 11:50 | PCM.POSTANE2 ---
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 DRIVER.ERNESTINEOBMary Jo Spontaneous unlabored Yes 02/02/24 10:46 COMMERCIAL DRIVER[employer]S LICENSE DRIVER.RASHEEDA respirations Mental status Asleep 02/02/24 10:46 COMMERCIAL DRIVER[employer]S LICENSE DRIVER.RASHEEDA nausea No 02/02/24 10:46 COMMERCIAL DRIVER[employer]S LICENSE DRIVER.RASHEEDA Vomiting No 02/02/24 10:46 COMMERCIAL DRIVER'S LICENSE DRIVERMARIBELL Anesthesia Postop Eval I: Fluid Summary Crystalloid volume administer 1,200 02/02/24 10:46 COMMERCIAL DRIVER[employer]S LICENSE DRIVER.RASHEEDA (ml) Colloids volume administered ( ml) Blood Product volume administered (ml) Total IV fluid infused 1,200 02/02/24 10:46 COMMERCIAL DRIVER'S LICENSE DRIVERMARIBELL Anesthesia Postop Eval I: Summary Notes Anesthesia Complication No 02/02/24 10:46 BRITTNY Anesthesia Complication Comment: Post-operative progress note Anesthesia: Postop Eval II Evaluation Mental status: Awake Pain Level: 0 nausea: No Vomiting: No
== END 2024-02-02 13:43 | disposition home or self-care (01) ==
LOC: SDC 05:57 → AC 05:57
PROVIDERS: Anesthesiology; Referring Provider Surgery; Visit Provider Surgery
PROC: 0YQ64ZZ Repair Left Inguinal Region, Percutaneous Endoscopic Approach (ICD-10-PCS; CPT 49650; principal; 2024-02-02 07:10)
DX: K40.90 Unilateral inguinal hernia, without obstruction or gangrene, not specified as recurrent (principal); K42.9 Umbilical hernia without obstruction or gangrene; I25.10 Atherosclerotic heart disease of native coronary artery without angina pectoris; Z95.5 Presence of coronary angioplasty implant and graft; Z79.01 Long term (current) use of anticoagulants; Z79.02 Long term (current) use of antithrombotics/antiplatelets; Z79.82 Long term (current) use of aspirin; Z79.899 Other long term (current) drug therapy; K21.9 Gastro-esophageal reflux disease without esophagitis; I10 Essential (primary) hypertension; D17.5 Benign lipomatous neoplasm of intra-abdominal organs
CPT/HCPCS: 49650; S2900; 00840; 36415; 80048; 85027; 88304; 93005; J7120; J2405

== ENCOUNTER → 2024-02-25 | Outpatient (CLI) | payer OTHER, SELFPAY ==
[2023-04-03 15:13] VITALS: BMI 26.4
[2024-02-25 16:43] LABS: Cholesterol 141 mg/dL (200); High Density Lipoprotein 42 mg/dL; Triglycerides 178 mg/dL; Very Low Density Lipoprotein 36 mg/dL (5-40)
[2024-02-25 16:56] LABS: Amphetamine Urine VISTA NEGATIVE (<1000 ng/mL); Barbiturate Urine VISTA NEGATIVE (< 200 ng/mL); Benzodiazepine Urine VISTA NEGATIVE (< 200 ng/mL); Cocaine Urine VISTA NEGATIVE (< 300 ng/mL); Ecstacy Urine VISTA NEGATIVE (< 500 ng/mL); Methadone Urine VISTA NEGATIVE (< 300 ng/mL); PCP Urine VISTA NEGATIVE (< 25 ng/mL); THC Urine VISTA NEGATIVE (< 50 ng/mL); Vista UDS pH Range 4
[2024-02-25 17:25] LABS: Hepatitis C Antibody Non-Reactive (Nonreactive)
[2024-02-27 20:08] LABS: QNTFERON TB Mitogen Value > 10.00 IU/mL (.); QNTFERON TB Nil Value 0.03 IU/mL (.); QNTFERON TB1+ Ag Value 0.04 IU/mL (.); QNTFERON TB2+ Ag Value 0.03 IU/mL (.); QNTIFERON TB Positive Criteria Negative (Negative)
== END | disposition home or self-care (01) ==
LOC: POLAB3 15:44
PROVIDERS: PCP Family Medicine Geriatric Medicine; Visit Provider Family Medicine Geriatric Medicine
DX: Z02.1 Encounter for pre-employment examination (principal); Z13.89 Encounter for screening for other disorder; E78.5 Hyperlipidemia, unspecified
CPT/HCPCS: 36415; 80061; 80307; 84443; 86480; 86803

== ENCOUNTER → 2024-03-18 | Outpatient (CLI) | payer OTHER, SELFPAY ==
[2023-04-03 15:13] VITALS: BMI 26.4
== END | disposition home or self-care (01) ==
LOC: RAD 15:47
PROVIDERS: PCP Family Medicine Geriatric Medicine; Referring Provider Family Medicine Geriatric Medicine; Visit Provider Family Medicine Geriatric Medicine
DX: M79.675 Pain in left toe(s) (principal)
CPT/HCPCS: 73660

== ENCOUNTER → 2024-06-14 | Outpatient (CLI) | payer OTHER, SELFPAY ==
[2024-05-10 15:34] VITALS: BMI 26.4
--- NOTE | 2024-06-14 11:30 | RAD_ITS ---
PROCEDURE: ELBOW MIN 3 VIEWS REASON FOR EXAM: Pain TECHNIQUE: Three views of the right elbow COMPARISON: None. FINDINGS: See impression RAD/Elbow min 3 Views IMPRESSION: Negative for fracture or malalignment. No significant joint effusion or arthro trini. Mild posterior olecranon enthesopathy. Reading Location: [facility]
== END | disposition home or self-care (01) ==
LOC: RAD 11:26
PROVIDERS: PCP Family Medicine Geriatric Medicine; Referring Provider Nurse Practitioner Family; Visit Provider Nurse Practitioner Family
DX: M25.521 Pain in right elbow (principal)
CPT/HCPCS: 73080

== ENCOUNTER → 2024-07-30 | Outpatient (CLI) | payer OTHER, SELFPAY ==
[2024-05-10 15:34] VITALS: BMI 26.4
--- NOTE | 2024-07-30 15:29 | STRESSREP ---
Stress Test Report Exercise myocardial perfusion stress test. 54-year-old man with a history of chest pain Stress protocol: Resting EKG demonstrates normal sinus rhythm with a rate of 60 bpm resting blood pressure is 114/68 mmHg. The patient exercised according to the regular [place] protocol for a total duration of 9 minutes attaining a maximum heart rate of 179 bpm which was 107% of maximum predicted heart rate; the maximum workload was 10.1 metabolic equivalents. At rest there were no ST or T wave changes noted to suggest ischemia and at peak exercise upsloping ST changes only were noted which did not meet the criteria for ischemia. No clinical angina was noted the test was terminated due to the target heart rate being achieved/fatigue. The peak blood pressure was 142/82 mmHg. Rate-pressure product was 24,000. Myocardial perfusion protocol. 11.5 mCi of technetium 99m sestamibi was injected at rest. The patient exercised according to regular [place] protocol for total duration of 9-minute and at peak exercise 33.8 mCi of technetium 99m sestamibi was injected stress images were obtained stress and rest images were reconstructed in comparing the short axis vertical long and horizontal long axis. Gated images were also obtained. Perfusion SPECT analysis: Review of the stress images demonstrate normal uptake of tracer noted in all areas of the myocardium. The resting images similarly demonstrate normal uptake of tracer noted in all areas of the myocardium. No areas of reversibility are noted to suggest ischemia no previous infarct was noted. Gated SPECT analysis: The gated ejection fraction is 81%. Conclusion: Normal exercise myocardial perfusion stress test at a high workload Preserved ejection fraction.
== END | disposition home or self-care (01) ==
LOC: CVS 06:10
PROVIDERS: PCP Family Medicine Geriatric Medicine; Referring Provider Physician Assistant Medical; Visit Provider Physician Assistant Medical
DX: R07.9 Chest pain, unspecified (principal); I25.10 Atherosclerotic heart disease of native coronary artery without angina pectoris; Z95.5 Presence of coronary angioplasty implant and graft
CPT/HCPCS: 78452; 93017; A9500; A4216

== ENCOUNTER → 2024-11-10 | Outpatient (CLI) | payer OTHER, SELFPAY ==
[2024-05-10 15:34] VITALS: BMI 26.4
--- NOTE | 2024-11-10 14:47 | RAD_ITS ---
EXAM: XR Left Hand Complete, 3 or More Views CLINICAL INDICATION: HAND AND BASE L THUMB PAIN TECHNIQUE: Frontal, lateral and oblique views of the left hand. COMPARISON: No relevant prior studies available. FINDINGS: BONES/JOINTS: Unremarkable. No acute fracture. No dislocation. SOFT TISSUES: Unremarkable. RAD/Hand Min 3 Views IMPRESSION: No acute fracture. Reading [facility]
--- NOTE | 2024-11-10 14:47 | RAD_ITS ---
EXAM: XR Left Hand Complete, 3 or More Views CLINICAL INDICATION: HAND AND BASE L THUMB PAIN TECHNIQUE: Frontal, lateral and oblique views of the left hand. COMPARISON: No relevant prior studies available. FINDINGS: BONES/JOINTS: Unremarkable. No acute fracture. No dislocation. SOFT TISSUES: Unremarkable. RAD/Hand Min 3 Views IMPRESSION: No acute fracture. [facility]
--- NOTE | 2024-11-10 14:47 | RAD_ITS ---
EXAM: XR Left Elbow Complete, 3 or More Views CLINICAL INDICATION: ELBOW PAIN TECHNIQUE: Frontal, lateral and oblique views of the left elbow. COMPARISON: No relevant prior studies available. FINDINGS: BONES/JOINTS: Unremarkable. No acute fracture. No dislocation. SOFT TISSUES: Unremarkable. RAD/Elbow min 3 Views IMPRESSION: No acute fracture. Reading Location[facility]
--- NOTE | 2024-11-10 14:47 | RAD_ITS ---
EXAM: XR Left Elbow Complete, 3 or More Views CLINICAL INDICATION: ELBOW PAIN TECHNIQUE: Frontal, lateral and oblique views of the left elbow. COMPARISON: No relevant prior studies available. FINDINGS: BONES/JOINTS: Unremarkable. No acute fracture. No dislocation. SOFT TISSUES: Unremarkable. RAD/Elbow min 3 Views IMPRESSION: No acute fracture. Reading Location[facility]
== END | disposition home or self-care (01) ==
LOC: RAD 14:46
PROVIDERS: PCP Family Medicine Geriatric Medicine; Referring Provider Nurse Practitioner Family; Visit Provider Nurse Practitioner Family
DX: M25.522 Pain in left elbow (principal); M79.642 Pain in left hand
CPT/HCPCS: 73080; 73130

== ENCOUNTER → 2025-03-30 | Outpatient (CLI) | payer OTHER, SELFPAY ==
[2024-05-10 15:34] VITALS: BMI 26.4
[2025-03-30 11:38] LABS: AST(SGOT) 50 U/L (<=37); Alanine Aminotransfer ALT/SGPT 90 U/L (<=46); Albumin, Serum 4.3 g/dL (3.5-5.0); Alkaline Phosphatase 95 U/L (40-129); Anion Gap 10 (5-15); BUN 12 mg/dL (4-19); BUN/Creat Ratio 10.4 RATIO (10-20); Calcium,Total 9.2 mg/dL (7.6-11.0); Carbon Dioxide 24.5 mmol/L (21.0-32.0); Chloride 105 mmol/L (98-108); Globulin 2.9 g/dL (2.2-4.2); Glucose 106 mg/dL (70-99); Potassium 4.0 mmol/L (3.3-5.1)
== END | disposition home or self-care (01) ==
LOC: LAB 10:05
PROVIDERS: PCP Family Medicine Geriatric Medicine; Referring Provider Family Medicine Geriatric Medicine; Visit Provider Family Medicine Geriatric Medicine
DX: R53.83 Other fatigue (principal)
CPT/HCPCS: 36415; 80053

== ENCOUNTER 2025-04-21 04:19 | Emergency (ER) | payer OTHER, SELFPAY ==
[2024-05-10 15:34] VITALS: BMI 26.4
[2025-04-21] VITALS (7 sets, daily range): BP systolic 104–122; BP diastolic 69–89; PULSE 65–90; RESP 15–18; TEMP -17.7–36.6; O2SAT 97–99; BMI 27.5
--- NOTE | 2025-04-21 04:37 | CT_ITS ---
PROCEDURE: BRAIN/HEAD WITHOUT CONTRAST 04/21/2025 REASON FOR EXAM: INJURY/PAIN TECHNIQUE: Procedure Code: CTBR Modality: CT Procedure: BRAIN/HEAD WITHOUT CONTRAST Coronal and Sagittal reconstruction series were provided. One or more dose reduction techniques were used (e.g., Automated exposure control, adjustment of the mA and/or kV according to patient size, use of iterative reconstruction technique. RADIATION DOSE SUMMARY: Head CT CTDlvol: 44.99 MGy DLP: 846.73 mGycm C-spine CTD 25.83 DLP 520.96 COMPARISON: None FINDINGS: Brain: Within normal limits for age CSF Spaces: Normal Sinuses/Mastoids: Mucosal thickening noted in the maxillary sinuses Bones: No skull fracture or scalp hematoma CT/Brain/Head without Contrast IMPRESSION: No acute hemorrhage, midline shift, or mass effect Paranasal sinusitis Reading Location: [id number]
--- NOTE | 2025-04-21 04:37 | CT_ITS ---
PROCEDURE: SPINE CERVICAL WITHOUT CONTRAS 04/21/2025 REASON FOR EXAM: INJURY/PAIN TECHNIQUE: Procedure Code: CTSPC Modality: CT Procedure: SPINE CERVICAL WITHOUT CONTRAS Coronal and Sagittal reconstruction series were provided. One or more dose reduction techniques were used (e.g., Automated exposure control, adjustment of the mA and/or kV according to patient size, use of iterative reconstruction technique. RADIATION DOSE SUMMARY: Reported on the CT scan of the brain COMPARISON: None FINDINGS: Alignment: Alignment is anatomic from C1-T1. There is some loss of the natural lordotic curvature which is likely positional or due to pain Vertebrae: No acute fracture or suspicious osseous lesion Soft Tissues: No airway narrowing or deviation. No suspicious adenopathy. No carotid bulb calcifications. Thyroid gland is unremarkable, lung apices are clear. C2-3: Disc spaces well-preserved, no central canal narrowing or foraminal stenosis C3-4: Disc spaces well-preserved, no central canal narrowing or foraminal stenosis C4-5: Disc spaces well-preserved, no central canal narrowing or foraminal stenosis C5-6: Mild disc space narrowing, no central canal narrowing or foraminal stenosis C6-7: Mild disc space narrowing, no central canal narrowing or foraminal stenosis C7-T1: Mild disc space narrowing, no central canal narrowing or foraminal stenosis CT/Spine Cervical without Contras IMPRESSION: Mild degenerative changes in the lower cervical spine, no fracture or suspiciou s osseous lesion Reading Location: [id number]
--- NOTE | 2025-04-21 04:37 | EKG12_ITS ---
Test Reason : DIZZY Blood Pressure : */* mmHG Vent. Rate : 70 BPM Atrial Rate : 70 BPM P-R Int : 168 ms QRS Dur : 92 ms QT Int : 400 ms P-R-T Axes : 28 6 13 degrees QTcB Int : 432 ms Normal sinus rhythm Inferior infarct , age undetermined Abnormal ECG Present Confirmed by Jonatan Fonseca ([id number]), map editor VALENTINE HOANG ([id number]) on 04/22/2025 8:31:44 AM Referred By: Confirmed By: Jonatan Fonseca
--- NOTE | 2025-04-21 04:38 | EX.ED.DYSGE1 ---
HPI History of Present Illness Chief Complaint: Syncope Informant: patient Onset/Context/Timing Onset: Today Context: Sudden Onset Timing: Continuous Quality: Sharp Location: Head, neck Worsened by: Nothing Relieved by: Nothing Narrative Narrative: Patient presents with a syncopal episode that occurred today. Patient states that he had episode of vomiting. Patient states that he then woke up on the floor. Patient does not remember anything after he vomited. He patient complains of pain in his head and neck. Patient describes it as sharp. Patient denies any chest pain or palpitations. Patient denies any lightheadedness or dizziness. Patient states he was out for approximately 30 minutes. Patient is unsure of his last tetanus. [facility] Medical History Long-term use of aspirin therapy Dizziness Hyperlipidemia Essential hypertension Osteoarthritis of carpometacarpal (CMC) joint of left thumb GERD (gastroesophageal reflux disease) ADHD (attention deficit hyperactivity disorder) Wears glasses Wears partial dentures Alcohol use History of steroid therapy High cholesterol Non-smoker Heartburn Gastric reflux History of stress test History of echocardiogram Cardiology follow-up encounter Hypertension Trigger thumb, right thumb Lateral epicondylitis of left elbow Left anterior shoulder pain Atherosclerosis of coronary artery without angina pectoris Elevated coronary artery calcium score Abnormal nuclear stress test Abnormal findings diagnostic imaging of heart and coronary circulation Colon cancer screening Family history of coronary artery disease in grandfather Family history of coronary artery disease in father Family history of coronary artery disease Home Medications ?Medication ?Instructions ?Recorded ?Last Taken ?Type aspirin 81 mg tablet,delayed 81 mg PO DAILY 11/30/21 02/01/24 History release (Adult Aspirin Regimen) atorvastatin 80 mg tablet 80 mg PO QHS #90 tabs 07/23/24 Unknown Rx ezetimibe 10 mg tablet (Zetia) 10 mg PO QDAY #90 tabs 07/23/24 Unknown Rx metoprolol succinate 25 mg 25 mg PO QHS #90 tabs 10/01/24 Unknown Rx tablet,extended release 24 hr inclisiran 284 mg/1.5 mL 284 mg subcut [id number] 03/31/25 Unknown History subcutaneous syringe (Leqvio) methylphenidate HCl 10 mg tablet 10 mg PO DAILY 30 days #30 tabs 03/31/25 Unknown Rx methylphenidate HCl 10 mg tablet 10 mg PO DAILY 30 days #30 tabs 03/31/25 Unknown Rx methylphenidate HCl 10 mg tablet 10 mg PO QAM 30 days #30 tabs 03/31/25 Unknown Rx omeprazole magnesium 10 mg oral 20 mg PO DAILY 03/31/25 Unknown History suspension,delayed release (Prilosec) rosuvastatin 40 mg tablet 40 mg PO QHS 04/21/25 Unknown History Allergy/AdvReac Type Severity Reaction Status Date / Time bee venom protein (honey bee) AdvReac Severe Anaphylaxis Verified 04/21/25 04:25 Family History Father Myocardial infarction, Onset Age: 43 CAD (coronary artery disease) CABG ICD Hypertension CHF (congestive heart failure) Grandmother No problems noted. 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 pets and animals: Yes (3 dogs, 1 cat) pets and animals: cat(s) and dog(s) Smoking Status: Never smoker alcohol intake: current alcohol intake frequency: a few times a week Alcohol type: beer and hard liquor substance use type: does not use ROS ROS ED Constitutional Constitutional ED: Denies chills or fever(s) Eyes Eyes: Denies blurry vision or change in vision ENT ENT ED: Denies rhinorrhea or sore throat Cardiovascular Cardiovascular: Denies chest pain or palpitations Respiratory/Chest Respiratory/Chest: Denies cough or dyspnea Gastrointestinal Gastrointestinal: Reports nausea and vomiting Genitourinary Genitourinary ED: Denies dysuria or hematuria Musculoskeletal Musculoskeletal: Reports neck pain; Denies back pain Integumentary Denies abscess or rash Neurologic Neurologic: Reports headache(s); Denies weakness Allergic/Immunologic Allergic/Immunologic ED: Denies mouth swelling or urticaria EXAM Physical Exam Const Vital Signs: 04/21/25 04:19 04/21/25 04:32 04/21/25 05:19 Temperature 0 F L Temperature Source Oral Pulse Rate 77 74 Respiratory Rate 16 18 Respiratory Effort Normal Non-Labored Blood Pressure 109/89 H 104/88 H Blood Pressure Mean 95 93 Pulse Ox 98 98 Oxygen Delivery Method Room Air Room Air 04/21/25 05:24 04/21/25 06:00 04/21/25 06:16 Temperature 97.5 F L 97.6 F L 97.5 F L Temperature Source Oral Oral Oral Pulse Rate 65 65 69 Respiratory Rate 18 18 16 Respiratory Effort Blood Pressure 105/69 112/81 H 105/69 Blood Pressure Mean 81 91 81 Pulse Ox 97 98 97 Oxygen Delivery Method Room Air Room Air Room Air 04/21/25 07:00 04/21/25 07:00 Temperature 97.6 F L Temperature Source Oral Pulse Rate 70 70 Respiratory Rate 15 15 Respiratory Effort Blood Pressure 122/78 H 122/78 H Blood Pressure Mean 92 93 Pulse Ox 97 97 Oxygen Delivery Method Room Air Positive well nourished and well developed General Appearance ED: well developed and NAD HEENT Reports moist mucous membranes trauma Neck supple and no JVD Resp normal respiratory effort and clear to auscultation bilaterally Cardio regular rate and regular rhythm GI non-tender and non-distended Palpation: soft Extremity normal to inspection General Extremety ED: Negative for edema or tenderness General Extremity: Negative for edema Neuro oriented x3, CN's II-XII intact bilaterally and no sensory deficits noted Sensorium / Orientation: alert Motor Exam: strength 5/5 throughout Psych mental status grossly normal Skin Skin Narrative: There is a laceration over the occipital scalp. There is moderate gapping of the wound margins. There is no bony crepitance or step-off. There is no foreign body noted. MDM MDM MDM Narrative Medical decision making narrative: Differential diagnosis includes cardiac dysrhythmia, cardiac ischemia, vasovagal syncope, dehydration, electrolyte abnormality, hypovolemia, anxiety. EKG will be obtained to assess for cardiac dysrhythmia and cardiac ischemia. CT scan of the brain will be obtained to assess for intracranial bleeding and skull fracture. CT scan of the cervical spine will be obtained to assess for cervical spine fracture. CBC will be obtained to assess for leukocytosis and anemia. Basic metabolic profile will be obtained to assess for electrolyte abnormality and renal function. High-sensitivity troponin will be obtained to assess for cardiac ischemia. 2-hour repeat high-sensitivity troponin will be obtained to assess for ongoing cardiac ischemia. History & Record Review Additional record(s) reviewed:: Prior outpatient record and Prior labs Lab Data Attestation: I reviewed the patient's lab results. Lab results narrative: CBC was reviewed. There is a mild leukocytosis of 12.2. Hemoglobin was slightly elevated at 17.0. The remainder is within normal limits. Basic metabolic profile was reviewed and was essentially within normal limits. Glucose was mildly elevated at 167. Initial high-sensitivity troponin was reviewed and was normal at 9. 2-hour repeat high-sensitivity troponin was reviewed and was normal at 7. Labs: Laboratory Results - last 24 hr 04/21/25 04/21/25 04:30 06:41 WBC 12.2 H RBC 5.63 Hgb 17.0 H Hct 48.9 MCV 86.9 MCH 30.2 MCHC 34.8 RDW Std Deviation 39.4 RDW Coeff of Vivien 12.5 Plt Count 366 MPV 10.1 Immature Gran % (Auto) 0.300 Neut % (Auto) 74.8 H Lymph % (Auto) 15.6 L [place] % (Auto) 6.3 Eos % (Auto) 2.4 Baso % (Auto) 0.6 Absolute Neuts (auto) 9.1 H Absolute Lymphs (auto) 1.90 Nucleated RBC % 0 Sodium 141 Potassium 3.6 Chloride 103 Carbon Dioxide 22.9 Anion Gap 15 BUN 20 H Creatinine 1.09 Estim Creat Clear Calc 80.93 Est GFR (MDRD) Non-Af 81 BUN/Creatinine Ratio 18.3 Glucose 167 H Calcium 9.4 Troponin T High Sens 9 Troponin T Hi Sens 2 Hr 7 Radiography Diagnostic Testing: Clinical Impression(s) from Imaging Studies Brain CT 04/21/25 04:37 IMPRESSION: No acute hemorrhage, midline shift, or mass effect Paranasal sinusitis Reading Location: [facility] Cervical Spine CT 04/21/25 04:37 IMPRESSION: Mild degenerative changes in the lower cervical spine, no fracture or suspicious osseous lesion Reading Location: [facility] CT scan of the brain was obtained. There is no acute intracranial abnormality. This was interpreted by the radiologist. I also independently reviewed the images and did not see any evidence of acute intracranial bleeding or fracture. CT scan of the cervical spine was obtained. There is no acute fracture or spondylolisthesis. There is no soft tissue swelling. There are some mild degenerative changes. This was interpreted by the radiologist. I also independently reviewed the images and did not see any evidence of fracture or spondylolisthesis. EKG Initial EKG: Attestation: I personally reviewed and interpreted this EKG as follows: Interpretation: Sinus Rhythm (70) and Non-Specific ST Changes Comments: EKG was obtained. On my independent interpretation, it showed a normal sinus rhythm with a rate of 70. CA interval, QRS interval, and QTc intervals were all normal. Christoval was normal. There are nonspecific ST-T wave changes. Prior EKG tracings: available for review Prior: Unchanged (05/13/2024) Treatment and Re-Evaluation :: Patient was advised of his findings. Patient was feeling better on reevaluation. Patient is low risk according to [place] syncope rule. The wound was cleaned and irrigated with copious amounts of normal saline. The wound was anesthetized with 1% plain lidocaine locally. The wound was closed with 11 simple interrupted #4-0 nylon sutures under sterile technique. Patient tolerated the procedure well. Bacitracin dressing was applied. Patient was instructed to use ice to the area. Patient was instructed to take Tylenol as needed for pain. Patient was instructed to follow-up with his primary care physician in 7 days for wound recheck and suture removal. Patient understood and was agreeable with the plan. All questions were answered. Procedures Lacerations Occipital scalp: Depth: Sub Q Shape: Linear Prep: Sterile Conditions and Chlorhexadine Laceration repair: Irrigated, Lidocaine with epi, Local, Skin sutures and Wound explored Suture Information: Ethilon, Simple and 4-0 Discharge Plan Triage Chief Complaint: Syncope ED Provider: Gibson Cardona Dx/Rx/DC Orders Clinical Impression: Syncope and collapse, Laceration of occipital scalp Instructions: ED Head Injury (Adult), ED Laceration Scalp Stitches or Magen, ED Fainting, Uncertain Cause Prescriptions: No Action atorvastatin 80 mg tablet 80 mg PO QHS Qty: 90 3RF ezetimibe [Zetia] 10 mg tablet 10 mg PO QDAY Qty: 90 3RF Prilosec 10 mg susp,delayed release for recon 20 mg PO DAILY Leqvio 284 mg/1.5 mL syringe 284 mg subcut [id number] methylphenidate HCl 10 mg tablet 10 mg PO DAILY 30 Days Qty: 30 0RF methylphenidate HCl 10 mg tablet 10 mg PO QAM 30 Days Qty: 30 0RF methylphenidate HCl 10 mg tablet 10 mg PO DAILY 30 Days Qty: 30 0RF rosuvastatin 40 mg tablet 40 mg PO QHS aspirin [Adult Aspirin Regimen] 81 mg tablet,delayed release (DR/EC) 81 mg PO DAILY metoprolol succinate 25 mg tablet extended release 24 hr 25 mg PO QHS Qty: 90 3RF Primary Care Provider: Beck Duran Chi Referrals: Beck Duran Chi, MD [Primary Care Provider, Geriatrics] - 7 Days for suture removal Print Language: [place] Citizen Disposition Disposition: Home, Self Care
--- OUTSIDE RECORDS SUMMARY | 2025-04-21 04:39 | XMS RPT_ITS | CCD ---
Author Organization [facility] CliniSymt Care Team Providers Care Fitting Room Supervisor Name Role Phone MD Loki Rock Primary Care Provider Verito Borges Attending Provider Unavailable MD Loki Rock Referring Provider UnavailDr. Jossue Juárez Attending Provider [phone] Dr. Jossue Douglas Primary Care Provider [phone]) Dr. Jossue Douglas Referring Provider [phone] Dr. Jossue Douglas Other Provider [phone] Dr. Juvenal Palacios Attending Provider [phone] MD Loki Rock Primary Care Provider Dr. Chance Davis Attending Provider [phone] BRUCE Mcgee Attending Provider UnavailDr. Chance Guidry Referring Provider [phone])- Dr. Chance Lynn Other Provider Roof EYELET MACHINE OPERATOR, EYELET MACHINE OPERATOR-C Westley Wheeler Attending Provider Jossue Duoglas Primary Care Provider Loki Sexton Attending Unavailable Jossue Douglas Primary Care Unavailable PROVIDER, UNKNOWN Referring Unavailable Dr. Jossue Douglas Primary Care Provider [phone] Dr. Jossue Douglas Referring Provider [phone] Earnestine Birmingham Attending Provider Unavailable Dr. Jossue Douglas Primary Care Provider 1([phone] 0) Dr. Chance Lynn Attending Provider [phone])- Dr. Jossue Douglas Referring Provider [phone] BRUCE Tovar Attending Provider Dr. Jossue Douglas Primary Care Provider 1(33 0) Dr. Chance Lynn Attending Provider [phone] Dr. Jossue Douglas Referring Provider [phone] BRUCE Mcgee Attending Provider Unavailab le Dr. Chance Lynn Referring Provider [phone] Dr. Chance Lynn Other Provider Tremayne EYELET MACHINE OPERATOR, EYELET MACHINE OPERATOR-C Westley Wheeler Attending Provider Earnestine Birmingham Attending Provider Unavailable BRUCE Tovar Attending Provider [phone] BRUCE Becker Attending Provider Dr. Jossue Douglas Primary Care Provider [phone]) Emily EYELET MACHINE OPERATOR, EYELET MACHINE OPERATOR-C Loki Attending Provider [phone]) Dr. Jossue Douglas Primary Care Provider 1(33 0) Dr. Jossue Douglas Referring Provider [phone] Dr. Tru Wayne Attending Provider [phone] Dr. Jossue Douglas Primary Care Provider 1(33 0) Dr. Jossue Douglas Referring Provider [phone] Emily EYELET MACHINE OPERATOR, EYELET MACHINE OPERATOR-C Loki Attending Provider [phone]) Dr. Tru Wayne Attending Provider [phone]) Dr. Chance Lynn Attending Provider [phone] BRUCE Becker Attending Provider LOKI ROCK Primary Care Unavailable JUVENAL HUGGINS Referring Unavailable Dr. Jossue Douglas Primary Care Provider [phone]) Dr. Jossue Douglas Referring Provider [phone] BRUCE Tovar Attending Provider Gerry Green Attending Unavailable Roger, Beck Chi Primary Care Unavailable Roger, Beck Chi Referring Unavailable Roger, Beck Chi Primary Care Unavailable Sara Aguirre Attending Unavailable Roger, Beck Chi Attending Unavailable Roger, Beck Chi Primary Care Unavailable Roger, Beck Chi Primary Care Unavailable Sara Aguirre Attending Unavailable Roger, Beck Chi Primary Care Unavailable Jassiindia Jossue Referring Unavailable Chelo Becker Attending Unavail able Roger, Beck Chi Primary Care Unavailable Roger, Beck Chi Referring Unavailable Davonte France Attending Unavailable Roger, Beck Chi Primary Care Unavailable Roger, Beck Chi Referring Unavailable Davonte France Attending Unavailable Roger, Beck Chi Primary Care Unavailable Chelo Becker Referring Unavail able Chelo Becker Attending Unavail able Sasha Lewis Attending Unavailable Roger, Beck Chi Primary Care Unavailable Lewis Sasha Referring Unavailable Roger, Beck Chi Primary Care Unavailable Roger, Beck Chi Referring Unavailable Sara Aguirre Attending Unavailable Isra Jiménez Attending Unavailable Roger, Beck Chi Primary Care Unavailable Care Physician, No Primary Referring Unava ilable Roger, Beck Chi Attending Unavailable Roger, Beck Chi Primary Care Unavailable Roger, Beck Chi Referring Unavailable Vidhi Lewise Attending Unavailable Roger, Beck Chi Primary Care Unavailable Anahi Lewisanne Referring Unavailable Assessment, Health Risk Attending Unavaila ble Roger, Beck Chi Primary Care Unavailable Assessment, Health Risk Referring Unavaila ble Roger, Beck Chi Primary Care Unavailable Roger, Beck Chi Referring Unavailable Ana Lynnl Attending Unavailable Roger, Beck Chi Referring Unavailable Roger, Beck Chi Primary Care Unavailable Chelo Becker Attending Unavail able Roger, Beck Chi Primary Care Unavailable Sara Aguirre Attending Unavailable Sasha Lewis Attending Unavailable Roger, Beck Chi Primary Care Unavailable Roger, Beck Chi Referring Unavailable Vidhi Lewise Attending Unavailable Roger, Beck Chi Primary Care Unavailable Roger, Beck Chi Referring Unavailable Roger, Beck Chi Primary Care Unavailable Sara Aguirre Attending Unavailable Roger, Beck Chi Primary Care Unavailable Chelo Becker Consulting Unavail able Chance Lynn Attending Unavailable Chelo Becker Referring Unavail able Roger, Beck Chi Primary Care Unavailable Sara Aguirre Attending Unavailable Allergies Allergy Classification Reported Allergen(s) Allergy Type Date of Onset Reaction(s) Facility (12 sources) bee venom protein (honey bee) Propensity to adverse reactions 2 Anaphylaxis [facility] (1 source) Hornet venom; Translations: [HORNET VENOM] Propensity to adverse reactions to drug (disorder) 5 [facility] Repository (1 source) bee venom protein (honey bee) Drug allergy (disorder) 5 [facility] Repository Medications Current Medications Medication Drug Class(es) Dates Sig (Normalized) Sig (Original) acetaminophen 325 mg oral tablet (2 sources) Start: 01-07-2022 acetaminophen (TYLENOL) tablet 650 mg aspirin 81 mg delayed release oral tablet (13 sources) Platelet Aggregation Inhibitor, Nonsteroidal Anti-inflammatory Drug Start: 11-30-2021 take 1 tablet by mouth once daily Aspirin (Adult Aspirin Regimen) 81 mg tablet,delayed release (DR/EC) Active 81 MG PO DAILY November 30, 2021 12:00am 24 hr metoprolol succinate 25 mg extended release oral tablet (20 sources) beta-Adrenergic Trena Start: 07-24-2022 take 25 mg by mouth once daily Metoprolol Succinate Active 25 MG PO DAILY July 24, 2022 1:24pm Start: 02-27-2022 End: 07-24-2022 take 25 mg by mouth once daily Metoprolol Succinate Di scontinued 25 MG PO DAILY February 27, 2022 8:52am July 24, 2022 1:25pm Start: 01-03-2022 End: 02-27-2022 take 50 mg by mouth once daily Metoprolol Succinate Di scontinued 50 MG PO DAILY January 07, 2022 12:00am February 27, 2022 8:52am Start: 08-22-2021 End: 09-21-2021 take 50 mg by mouth once daily Metoprolol Tartrate Dis continued 50 MG PO DAILY August 22, 2021 12:00am September 21, 2021 1:28pm rizatriptan 10 mg oral tablet (20 sources) Serotonin-1b and Serotonin-1d Receptor Agonist Start: 08-27-2022 Rizatriptan Active 0 .ROUTE .COMPLEX August 27, 2022 3:34pm SNEHAL 1 TABLET BY MOUTH AT ONSET OF HEADACHE, IF NO RELIEF MAY REPEAT 1 TABLET AFTER AT LEAST 2 HOURS, MAX 3 TABS/24 HOURS Start: 08-20-2021 End: 05-02-2023 take 1 tablet by mouth every two hours Rizatriptan Discontinued 0 PO .COMPLEX September 21, 2021 3:40pm August 27, 2022 3:34pm take 1 tab at onset of headache; if no relief may repeat 1 tab after at least 2 hrs; max = 3 tabs/24 hr PO RIZATRIPTAN CARLO OATE PO Take by mouth 0 Suspended 5 ml sodium chloride 9 mg/ml injection (7 sources) Start: 01-07-2022 sodium chlorid e flush 0.9 % injection 5-40 mL Start: 01-07-2022 End: 01-07-2022 0.9 % sodium chloride infusi on Start: 01-07-2022 sodium chlorid e flush 0.9 % injection 5-40 mL Completed/Discontinued Medications Medication Drug Class(es) Dates Sig (Normalized) Sig (Original) atorvastatin 80 mg oral tablet (20 sources) HMG-CoA Reductase Inhibitor Start: 01-04-2022 End: 07-24-2022 take 80 mg by mouth at bedtime Atorvastatin Discontinued 80 MG PO AT BEDTIME January 07, 2022 12:00am July 24, 2022 1:25pm Start: 09-21-2021 End: 01-07-2022 take 1 tablet by mouth once daily Atorvastatin (Lipitor) 10 mg tablet Discontinued 10 MG PO DAILY 90 September 21, 2021 12:00am January 07, 2022 5:34pm diclofenac sodium 20 mg/ml topical solution (4 sources) Nonsteroidal Anti-inflammatory Drug Start: 06-05-2022 End: 07-24-2022 Diclofenac Sodium (Pennsaid) 20 mg/gram /actuation(2 %) solution in metered-dose pump Discontinued 2 PUMP TOPICAL TWICE A DAY June 05, 2022 1:00am July 24, 2022 12:56pm apply to single affected area methylPREDNISolone 4 mg oral tablet (10 sources) Corticosteroid Start: 12-26-2021 End: 02-27-2022 take 1 tablet by mouth once Methylprednisolone (Medrol (Alex)) 4 mg tablets,dose pack Discontinued 0 PO per package directions December 26, 2021 12:00am February 27, 2022 8:29am PO PER PKG DIR mirtazapine 7.5 mg oral tablet (12 sources) Start: 08-20-2021 End: 08-20-2021 take 7.5 mg by mouth once daily Mirtazapine Discontinued 7.5 MG PO DAILY August 20, 2021 12:00am August 20, 2021 9:20am predniSONE 10 mg oral tablet (5 sources) Start: 04-03-2022 End: 05-29-2022 Prednisone Discontinued 0 PO daily April 03, 2022 1:00am May 29, 2022 9:56am 4 tabs for 3 days, then 3 tabs for 3 days, then 2 tabs for 3 days, then 1 tab for 3 days PO QDAY; administer with food or milk ticagrelor 90 mg oral tablet (17 sources) Start: 01-03-2022 End: 07-24-2022 take 90 mg by mouth twice daily Ticagrelor Discontinued 90 MG PO TWICE A DAY 180 July 05, 2022 5:20pm July 24, 2022 1:25pm Problems Active Problems Problem Classification Problem Date Documented Da te Episodic/Chronic Administrative/social admission (2 sources) Encounter for pre-employment examination; Translations: [Health examination of defined subpopulations] 01-01-2023 Episodic Allergic reactions (6 sources) Unspecified contact dermatitis, unspecified cause; Translations: [Contact dermatitis and other eczema, unspecified cause] Episodic Attention-deficit, conduct, and disruptive behavior disorders (1 source) Attention-deficit hyperactivity disorder, predominantly inattentive type; Translations: [Attention-deficit hyperactivity disorder, predominantly inattentive type] Onset: 12-31-2024 Chronic Attention-deficit, conduct, and disruptive behavior disorders (1 source) Attention-deficit hyperactivity disorder, unspecified type; Translations: [Attention-deficit hyperactivity disorder, unspecified type] Onset: 03-10-2024 Chronic Coronary atherosclerosis and other heart disease (19 sources) Chronic total occlusion of coronary artery; Translations: [Chronic total occlusion of coronary artery] Onset: 01-07-2022 Chronic Coronary atherosclerosis and other heart disease (6 sources) Presence of coronary angioplasty implant and graft; Translations: [Percutaneous transluminal coronary angioplasty status] Onset: 01-07-2022 Episodic Disorders of lipid metabolism (5 sources) Dyslipidemia; Translations: [Hyperlipidemia, unspecified] Onset: 01-07-2022 Chronic Essential hypertension (2 sources) Essential (primary) hypertension; Translations: [Essential (primary) hypertension] Onset: 01-07-2022 Chronic Headache; including migraine (14 sources) Migraine; Translations: [Migraine, unspecified, not intractable, without status migrainosus] Chronic Malaise and fatigue (1 source) Other fatigue; Translations: [Other fatigue] Onset: 03-03-2025 Episodic Other aftercare (2 sources) long term care pharmacist (current) use of aspirin; Translations: [skilled nursing (current) use of aspirin] Onset: 01-07-2022 Episodic Other and ill-defined heart disease (6 sources) Impaired left ventricular function; Translations: [Heart disease, unspecified] 02-27-2022 Chronic Other and ill-defined heart disease (4 sources) Heart disease, unspecified; Translations: [Heart disease, unspecified] Chronic Other connective tissue disease (7 sources) Lateral epicondylitis, left elbow; Translations: [Lateral epicondylitis] Episodic Other connective tissue disease (4 sources) Lateral epicondylitis of left humerus; Translations: [Lateral epicondylitis, left elbow] 05-29-2022 Episodic Other non-traumatic joint disorders (5 sources) Shoulder pain; Translations: [Pain in left shoulder] 04-03-2022 Episodic Other non-traumatic joint disorders (3 sources) Pain in left shoulder; Translations: [Pain in joint, shoulder region] Episodic Other screening for suspected conditions (not mental disorders or infectious disease) (20 sources) Patient encounter status; Translations: [Encounter for screening for malignant neoplasm of colon] Onset: 01-07-2022 Episodic Residual codes; unclassified (20 sources) Family history of coronary arteriosclerosis; Translations: [Family history of ischemic heart disease and other diseases of the circulatory system] 09-21-2021 Episodic Residual codes; unclassified (2 sources) Family history of ischemic heart disease and other diseases of the circulatory system; Translations: [Family history of ischemic heart disease] Episodic Past or Other Problems Problem Classification Problem Date Documented Da te Episodic/Chronic Nonspecific chest pain (2 sources) Chest pain, unspecified; Translations: [Chest pain, unspecified] Onset: 08-06-2024 Episodic Other connective tissue disease (1 source) Pain in left toe(s); Translations: [Pain in left toe(s)] Onset: 03-31-2024 Episodic Other non-traumatic joint disorders (1 source) Pain in left elbow; Translations: [Pain in left elbow] Onset: 11-15-2024 Episodic Other non-traumatic joint disorders (1 source) Pain in right elbow; Translations: [Pain in right elbow] Onset: 06-27-2024 Episodic Results Test Name Value Interpretation Reference Range Facility CBC, [place] 01-31-2025 Absolute Lymph 2.10 X10 3/uL Normal 0.83-4.51 [facility] Comment on above: Performed By: #### L 400.0100, L100.0200, L500.2900 ####[facility] [address] [place], [address] Absolute Neut 3.2 X10 3/uL Normal 2.0-7.7 [facility] Comment on above: Performed By: #### L 400.0100, L100.0200, L500.2900 ####[facility] [address] [place], [address] Basophils/100 WBC (Bld) 1.1 % High 0-1 [facility] Comment on above: Performed By: #### L 400.0100, L100.0200, L500.2900 ####[facility] [address] [place], [address] Eosinophils/100 WBC (Bld) 6.3 % High 0-5 [facility] Comment on above: Performed By: #### L 400.0100, L100.0200, L500.2900 ####[facility] [address] [place], [address] Erythrocyte distribution width (RBC) [Ratio] 13.3 % Normal 11.6-14.6 [facility] Comment on above: Performed By: #### L 400.0100, L100.0200, L500.2900 ####[facility] [address] [place], [address] Hematocrit (Bld) [Volume fraction] 45.0 % Normal 40-54 [facility] Comment on above: Performed By: #### L 400.0100, L100.0200, L500.2900 ####[facility] [address] [place], [address] Hemoglobin (Bld) [Mass/Vol] 16.2 g/dL Normal 13.0-16.5 [facility] Comment on above: Performed By: #### L 400.0100, L100.0200, L500.2900 ####[facility] [address] [place], [address] Lymphocytes/100 WBC (Bld) 33.0 % Normal 19-41 [facility] Comment on above: Performed By: #### L 400.0100, L100.0200, L500.2900 ####[facility] [address] [place], [address] MCH (RBC) [Entitic mass] 31.2 pg Normal 27.0-32.0 [facility] Comment on above: Performed By: #### L 400.0100, L100.0200, L500.2900 ####[facility] [address] [place], [address] MCHC (RBC) [Mass/Vol] 36.0 g/dL Normal 32-36 [facility] Comment on above: Performed By: #### L 400.0100, L100.0200, L500.2900 ####[facility] [address] [place], [address] MCV (RBC) [Entitic vol] 86.7 fL Normal 80-94 [facility] Comment on above: Performed By: #### L 400.0100, L100.0200, L500.2900 ####[facility] [address] [place], [address] Monocytes/100 WBC (Bld) 8.5 % Normal 0-10 [facility] Comment on above: Performed By: #### L 400.0100, L100.0200, L500.2900 ####[facility] [address] [place], [address] Neutrophils/100 WBC (Bld) 50.8 % Normal 47-70 [facility] Comment on above: Performed By: #### L 400.0100, L100.0200, L500.2900 ####[facility] [address] [place], [address] NRBC # 0.00 10 3/uL Normal 0-5 [facility] Comment on above: Performed By: #### L 400.0100, L100.0200, L500.2900 ####[facility] [address] [place], [address] Nucleated RBC (Bld) [#/Vol] 0 10*3/uL Normal 0-5 [facility] Comment on above: Performed By: #### L 400.0100, L100.0200, L500.2900 ####[facility] [address] [place], [address] Platelet mean volume (Bld) [Entitic vol] 9.6 fL Normal 6.2-12.0 [facility] Comment on above: Performed By: #### L 400.0100, L100.0200, L500.2900 ####[facility] [address] [place], [address] Platelets (Bld) [#/Vol] 251 10*3/uL Normal 150-450 [facility] Comment on above: Performed By: #### L 400.0100, L100.0200, L500.2900 ####[facility] [address] [place], [address] RBC (Bld) [#/Vol] 5.19 10*6/uL Normal 4.6-6.2 [facility] Comment on above: Performed By: #### L 400.0100, L100.0200, L500.2900 ####[facility] [address] [place], [address] RDW SD 42.4 fl Normal 35.1-43.9 [facility] Comment on above: Performed By: #### L 400.0100, L100.0200, L500.2900 ####[facility] [address] [place], [address] WBC (Bld) [#/Vol] 6.4 10*3/uL Normal 4.4-11.0 [facility] Comment on above: Performed By: #### L 400.0100, L100.0200, L500.2900 ####[facility] [address] [place], [address] Employee Profileon 5 CHOL:HDL 3.72 Normal [facility] Comment on above: Order Comment: SEND LIVER AND LIPID TO EYELET MACHINE OPERATOR.MMCONNELL Performed By: #### L 400.0100, L100.0200, L500.2900 ####[facility] [address] [place], [address] Cholesterol [Mass/Vol] 166 mg/dL Normal <=200 [facility] Comment on above: Order Comment: SEND LIVER AND LIPID TO EYELET MACHINE OPERATOR.MMCONNELL Result Comment: Chol esterol level, Desirable <200 mg/dL Borderline high cholesterol 200-239 mg/dL High cholesterol >=240 mg/dL Recommendations of the NCEP Adult Treatment Panel for the following risk-cutoff thresholds for the [place] population. Performed By: #### L 400.0100, L100.0200, L500.2900 ####[facility] [address] [place], [address] Cholesterol in HDL [Mass/Vol] 45 mg/dL Normal [facility] Comment on above: Order Comment: SEND LIVER AND LIPID TO EYELET MACHINE OPERATOR.MMCONNELL Result Comment: Bessy onal Cholesterol Education Program (NCEP) guidelines: <40 mg/dL: Low HDL-cholesterol (major risk factor for CHD) >= 60 mg/dL: High HDL-cholesterol (negative risk factor for CHD) HDL-cholesterol is affected by a number of factors, e.g. smoking, exercise, hormones, sex and age. Performed By: #### L 400.0100, L100.0200, L500.2900 ####[facility] [address] [place], [address] Cholesterol in LDL [Mass/Vol] 101 mg/dL Normal [facility] Comment on above: Order Comment: SEND LIVER AND LIPID TO EYELET MACHINE OPERATOR.MMCONNELL Result Comment: Bord icfqot=231-757 mg/dL Higher Erdi=963 mg/dL or greater Friedwald Equation for LDL-C Performed By: #### L 400.0100, L100.0200, L500.2900 ####[facility] [address] [place], [address] Cholesterol in VLDL [Mass/Vol] 21 mg/dL Normal 5-40 [facility] Comment on above: Order Comment: SEND LIVER AND LIPID TO EYELET MACHINE OPERATOR.MMCONNELL Performed By: #### L 400.0100, L100.0200, L500.2900 ####[facility] [address] [place], [address] LDH 185 U/L Normal 87-241 [facility] Comment on above: Order Comment: SEND LIVER AND LIPID TO EYELET MACHINE OPERATOR.MMCONNELL Performed By: #### L 400.0100, L100.0200, L500.2900 ####[facility] [address] [place], [address] Phosphate [Mass/Vol] 2.5 mg/dL Low 2.7-4.5 [facility] Comment on above: Order Comment: SEND LIVER AND LIPID TO EYELET MACHINE OPERATOR.MMCONNELL Performed By: #### L 400.0100, L100.0200, L500.2900 ####[facility] [address] [place], [address] Triglyceride [Mass/Vol] 103 mg/dL Normal [facility] Comment on above: Order Comment: SEND LIVER AND LIPID TO EYELET MACHINE OPERATOR.MMCONNELL Result Comment: The drugs N-Acetylcysteine and Metamizole may falsely depress this assay. Normal range: <150 mg/dL Borderline High: 150-199 mg/dL High: 200-499 mg/dL Very High: >500 mg/dL Performed By: #### L 400.0100, L100.0200, L500.2900 ####[facility] [address] [place], [address] URIC 5.9 mg/dL Normal 3.5-7.2 [facility] Comment on above: Order Comment: SEND LIVER AND LIPID TO EYELET MACHINE OPERATOR.MMCONNELL Result Comment: The drugs N-Acetylcysteine and Metamizole may falsely depress this assay. Performed By: #### L 400.0100, L100.0200, L500.2900 ####[facility] [address] [place], [address] Lipid Profileon 01-31-2025 CHOL Normal <=200 [facility] Comment on above: Result Comment: DUPL ICATE Performed By: #### L 500.4100, L500.3400 ####[facility] [address] [place], [address] CHOL:HDL Normal [facility] Comment on above: Result Comment: DUPL ICATE Performed By: #### L 500.4100, L500.3400 ####[facility] [address] [place], [address] CLDL Normal [facility] Comment on above: Result Comment: DUPL ICATE Performed By: #### L 500.4100, L500.3400 ####[facility] [address] [place], [address] HDL Normal [facility] Comment on above: Result Comment: DUPL ICATE Performed By: #### L 500.4100, L500.3400 ####[facility] [address] [place], [address] TRIG Normal [facility] Comment on above: Result Comment: DUPL ICATE Performed By: #### L 500.4100, L500.3400 ####[facility] [address] [place], [address] VLDL Normal 5-40 [facility] Comment on above: Result Comment: DUPL ICATE Performed By: #### L 500.4100, L500.3400 ####[facility] [address] [place], [address] Liver Profileon 01-31-2025 ALB Normal 3.5-5.0 [facility] Comment on above: Result Comment: DUPL ICATE Performed By: #### L 500.4100, L500.3400 ####[facility] [address] [place], [address] ALK PHOS Normal 40-129 [facility] Comment on above: Result Comment: DUPL ICATE Performed By: #### L 500.4100, L500.3400 ####[facility] [address] [place], [address] ALT Normal <=46 [facility] Comment on above: Result Comment: DUPL ICATE Performed By: #### L 500.4100, L500.3400 ####[facility] [address] [place], [address] AST Normal <=37 [facility] Comment on above: Result Comment: DUPL ICATE Performed By: #### L 500.4100, L500.3400 ####[facility] [address] [place], [address] D BILI Normal 0.00-0.30 [facility] Comment on above: Result Comment: DUPL ICATE Performed By: #### L 500.4100, L500.3400 ####[facility] [address] [place], [address] T BILI Normal 0.00-1.30 [facility] Comment on above: Result Comment: DUPL ICATE Performed By: #### L 500.4100, L500.3400 ####[facility] [address] [place], [address] T PROT Normal 5.9-8.4 [facility] Comment on above: Result Comment: DUPL ICATE Performed By: #### L 500.4100, L500.3400 ####[facility] [address] [place], [address] Urinalysis, Employeeon 01-31 BILIRUBIN URINE Normal Negative [facility] Comment on above: Order Comment: Urine , Random Result Comment: NOT WANTED Performed By: #### L 400.0100, L100.0200, L500.2900 ####[facility] [address] [place], [address] Clarity (U) Normal Clear [facility] Comment on above: Order Comment: Urine , Random Result Comment: NOT WANTED Performed By: #### L 400.0100, L100.0200, L500.2900 ####[facility] [address] [place], [address] Color (U) Normal Yellow [facility] Comment on above: Order Comment: Urine , Random Result Comment: NOT WANTED Performed By: #### L 400.0100, L100.0200, L500.2900 ####[facility] [address] [place], [address] GLUCOSE, UR Normal Normal [facility] Comment on above: Order Comment: Urine , Random Result Comment: NOT WANTED Performed By: #### L 400.0100, L100.0200, L500.2900 ####[facility] [address] [place], [address] KETONE UR Normal Negative [facility] Comment on above: Order Comment: Urine , Random Result Comment: NOT WANTED Performed By: #### L 400.0100, L100.0200, L500.2900 ####[facility] [address] [place], [address] LEUK ESTERASE Normal Negative [facility] Comment on above: Order Comment: Urine , Random Result Comment: NOT WANTED Performed By: #### L 400.0100, L100.0200, L500.2900 ####[facility] [address] [place], [address] Nitrite Ql (U) Normal Negative [facility] Comment on above: Order Comment: Urine , Random Result Comment: NOT WANTED Performed By: #### L 400.0100, L100.0200, L500.2900 ####[facility] [address] [place], [address] OCCULT BLOOD-UR Normal Negative [facility] Comment on above: Order Comment: Urine , Random Result Comment: NOT WANTED Performed By: #### L 400.0100, L100.0200, L500.2900 ####[facility] [address] [place], [address] pH UR Normal 5.0 - 8.0 [facility] Comment on above: Order Comment: Urine , Random Result Comment: NOT WANTED Performed By: #### L 400.0100, L100.0200, L500.2900 ####[facility] [address] [place], [address] PROT DIPSTX Normal Negative [facility] Comment on above: Order Comment: Urine , Random Result Comment: NOT WANTED Performed By: #### L 400.0100, L100.0200, L500.2900 ####[facility] [address] [place], [address] SP.GR. DIPSTX Normal 1.002-1.030 [facility] Comment on above: Order Comment: Urine , Random Result Comment: NOT WANTED Performed By: #### L 400.0100, L100.0200, L500.2900 ####[facility] [address] [place], [address] UR Preservative Normal [facility] Comment on above: Order Comment: Urine , Random Result Comment: NOT WANTED Performed By: #### L 400.0100, L100.0200, L500.2900 ####[facility] [address] [place], [address] UROBILI Normal Normal [facility] Comment on above: Order Comment: Urine , Random Result Comment: NOT WANTED Performed By: #### L 400.0100, L100.0200, L500.2900 ####[facility] [address] [place], [address] Cardiology Visit Reporton Cardiology Visit Report [facility] [address] [place] [address] OFFICE VISIT Date of Service: 01/25/25 MR#: [id number] Acct: [id number] Name: TRU NESS Rep #: [id number] : 1970 Provider: BRUCE Dutton Age/Sex: 54/M Location: [facility] Status: Signed HPI HPI History of Present Illness Details: Ovi Ness is a 54-year-old gentleman with a significant family history of coronary artery disease. His father had a myocardial infarction in his 40s, his grandfather had similar heart disease with an MA in his 60s. He did have an elevated calcium score of 241 which suggested moderate plaque burden. There was a suggestion of combination of soft and calcified plaque with mild to moderate disease noted in the mid LAD with possible moderate to severely partially obstructive plaque noted. He did undergo a stress test which was abnormal and demonstrated evidence of anterior apical ischemia at a high workload. Echocardiogram demonstrated an ejection fraction of 53%. No wall motion abnormality noted. Stage I diastolic dysfunction. In December he did undergo a diagnostic heart catheterization which demonstrated a totally occluded LAD with left to left collaterals with mild LV dysfunction, mild to moderate disease in the circumflex and RCA. Patient was evaluated at [facility] for revascularization of his totally occluded LAD. He did undergo 3 overlapped stents. He reports a 2???3 day episode of dizziness about a month ago, characterized by lightheadedness upon standing. He attributes this to possible dehydration during a period of hot weather, as his home blood pressure readings were within his usual range (approximately 110/70 mmHg) when checked toward the end of the episode. He denies chest pain, palpitations, or shortness of breath. He checks his blood pressure at home about once a week, noting that recent readings have been slightly higher than his usual baseline. He takes Ritalin 10 mg daily, which he acknowledges may contribute to elevated blood pressure. 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 Current medications include metoprolol, aspirin, atorvastatin, Zetia, Pepcid, and Brilinta. He has not traveled recently and denies any new exposures. Intake Vital Signs 07/23/24 07:47 12/31/24 08:00 01/25/25 09:05 01/25/25 09:19 Height 5 ft 10 in 5 ft 10 in 5 ft 10 in Weight: 188 lb BMI 26.9 BP 131/94 H 126/94 H Pulse 70 Intake Visit Reasons: 6 M FU Allergies bee venom protein (honey bee) Adverse Reaction (Severe, Verified 11/18/24 11:00) Anaphylaxis Medications ???Medication ???Instructions ???Recorded ???Confirmed ???Type aspirin 81 mg tablet,delayed 81 mg PO DAILY 11/30/21 01/25/25 H istory release (Adult Aspirin Regimen) famotidine 20 mg tablet (Pepcid) 20 mg PO BID 04/29/24 01/25/25 His tory atorvastatin 80 mg tablet 80 mg PO QHS #90 tabs 07/23/24 Rx ezetimibe 10 mg tablet (Zetia) 10 mg PO QDAY #90 tabs 07/23/24 Rx metoprolol succinate 25 mg 25 mg PO QHS #90 tabs 10/01/24 Rx tablet,extended release 24 hr methylphenidate HCl 10 mg tablet 10 mg PO QAM 30 days #30 tabs 0 25 01/25/25 Rx methylphenidate HCl 10 mg tablet 10 mg PO QAM 30 days #30 tabs 0 09/1901/25/25 Rx methylphenidate HCl 10 mg tablet 10 mg PO QAM 30 days #30 tabs 0 09/1901/25/25 Rx PFSH Medical History (Updated 01/25/25 @ 09:29 by Chelo BARRERA, PA) Long-term use of aspirin therapy Dizziness Hyperlipidemia Essential hypertension Osteoarthritis of carpometacarpal (CMC) joint of left thumb GERD (gastroesophageal reflux disease) ADHD (attention deficit hyperactivity disorder) Wears glasses Wears partial dentures Alcohol use History of steroid therapy High cholesterol Non-smoker Heartburn Gastric reflux History of stress test History of echocardiogram Cardiology follow-up encounter Hypertension Trigger thumb, right thumb Lateral epicondylitis of left elbow Left anterior shoulder pain Atherosclerosis of coronary artery without angina pectoris Elevated coronary artery calcium score Abnormal nuclear stress test Abnormal findings diagnostic imaging of heart and coronary circulation Colon cancer screening Family history of coronary artery disease in grandfather Family history of coronary artery disease in father Family history of coronary artery disease Surgical History S/P inguinal hernia repair using synthetic patch History of cardiac catheterization History of coronary artery stent placement (01/07/22) History of left heart catheterization (01/02/22) Family History (Reviewed 11/18/24 @ 11: (more content not included)... Normal [facility] MR/BMS.BPon 12-31-2024 MR/BMS.BP [facility] [address], [address] [place] [address] OFFICE VISIT Date of Service: 12/31/24 MR#: [id number] Acct: [id number] Name: TRU NESS Rep #: [id number] : 1970 Provider: TERRENCE oh Age/Sex: 54/M Location: [facility] Status: Signed Intake Vital Signs 09/30/24 07:00 11/18/24 10:58 12/31/24 08:00 Height 5 ft 10 in 5 ft 10 in 5 ft 10 in Weight: 187 lb BMI 26.8 BP 131/84 H Blood Pressure Location Lt brachial Position Sitting Respiration 16 Pulse 66 Pulse Source Monitor Pulse Oximetry (%) 97 Oxygen Delivery Method room air BP Intake Visit Reasons: 3 M FU Allergies bee venom protein (honey bee) Adverse Reaction (Severe, Verified 11/18/24 11:00) Anaphylaxis [facility] Medical History (Updated 11/18/24 @ 11:24 by Gerry Green MD) Osteoarthritis of carpometacarpal (CMC) joint of left thumb GERD (gastroesophageal reflux disease) ADHD (attention deficit hyperactivity disorder) Wears glasses Wears partial dentures Alcohol use History of steroid therapy High cholesterol Non-smoker Heartburn Gastric reflux History of stress test History of echocardiogram Cardiology follow-up encounter Hypertension Trigger thumb, right thumb Lateral epicondylitis of left elbow Left anterior shoulder pain Atherosclerosis of coronary artery without angina pectoris Elevated coronary artery calcium score Abnormal nuclear stress test Abnormal findings diagnostic imaging of heart and coronary circulation Colon cancer screening Family history of coronary artery disease in grandfather Family history of coronary artery disease in father Family history of coronary artery disease Surgical History S/P inguinal hernia repair using synthetic patch History of cardiac catheterization History of coronary artery stent placement (01/07/22) History of left heart catheterization (01/02/22) Family History Father Myocardial infarction, Onset Age: 43 CAD (coronary artery disease) CABG ICD Hypertension CHF (congestive heart failure) Grandmother No problems noted. 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 pets and animals: Yes (3 dogs, 1 cat) pets and animals: cat(s) and dog(s) Smoking Status: Never smoker alcohol intake: current alcohol intake frequency: a few times a week Alcohol type: beer and hard liquor substance use type: does not use HPI History of Present Illness History provided by: patient HPI: Tru Ness is a 54 year old male patient presenting today for a follow up evaluation. Has been doing well since last appointment. 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 Has finished orientation but has continued to have some challenges. Denies feelings of depression. Denies SI/HI. Denies recent feelings of anxiety overall. Denies panic attacks. Sleep has been good. Appetite has been good since last appointment. Does feel medication has continued to be effective for ADHD managment. Previous similar episode: Yes Age of first onset of symptoms: 11-20 years Review of Systems Constitutional Reports: change in weight (gain); Denies: fever(s), chills or fatigue Eyes Denies: change in vision or blurry vision Ears, Nose, Mouth, Throat Denies: throat pain or neck pain Cardiovascular Denies: chest pain, palpitations or dyspnea Respiratory Denies: dyspnea or wheezing Gastrointestinal Reports: heartburn; Denies: abdominal pain, nausea, vomiting, diarrhea or constipation Genitourinary Denies: dysuria, urinary frequency or urinary urgency Musculoskeletal Denies: back pain or neck pain Integumentary/Breast Denies: rash, pruritus or erythema Neurological Reports: headache(s) Psychiatric Reports: memory loss (forgetful) and difficulty concentrating; Denies: anxiety, panic attacks, change in sleep pattern, hopelessness, loss of interest, paranoia, visual hallucinations, auditory hallucinations, suicidal ideation or homicidal ideation Endocrine Denies: fatigue Hematologic/Lymphatic Denies: easy bruising Allergic/Immunologic Denies: wheezing Exam Mental Status Exam - Psych Appearance casually dressed, adequately groomed and no apparent distress Attitude cooperative and calm Activity/Motor Behavior MSE activity/motor behavior finding no adventitious movements and appropriate eye contact Speech regular rate, regular volume and regular prosody Mood euythm (more content not included)... Normal [facility] Orthopedic Visit Reporton Orthopedic Visit Report [facility] [place] [address] OFFICE VISIT Date of Service: 11/18/24 MR#: [id number] Acct: [id number] Name: TRU NESS Rep #: [id number] : 1970 Provider: Dr. Gerry echeverria MD Age/Sex: 54/M Location: [facility] Status: Signed Intake Vital Signs 09/30/24 07:00 07/24/25 10:58 Height 5 ft 10 in 5 ft 10 in Weight: 186 lb 180 lb BMI 26.6 25.8 BP 126/84 H Blood Pressure Location Lt brachial Position Sitting Respiration 16 Pulse 58 L Pulse Source Monitor Intake Visit Reasons: LEFT HAND/WRIST Chief Complaint: Left hand/wrist Accompanied by: Self Is patient in pain?: Yes Pain scale (1-10): 2 Allergies bee venom protein (honey bee) Adverse Reaction (Severe, Verified 11/18/24 11:00) Anaphylaxis Medications ???Medication ???Instructions ???Recorded ???Confirmed ???Type aspirin 81 mg tablet,delayed 81 mg PO DAILY 11/30/21 11/18/24 H istory release (Adult Aspirin Regimen) famotidine 20 mg tablet (Pepcid) 20 mg PO BID 04/29/24 11/18/24 His tory atorvastatin 80 mg tablet 80 mg PO QHS #90 tabs 07/23/24 Rx ezetimibe 10 mg tablet (Zetia) 10 mg PO QDAY #90 tabs 07/23/24 Rx ticagrelor 60 mg tablet (Brilinta) 60 mg PO BID #180 tabs 07/23/24 11/18/24 Rx ezetimibe 10 mg-simvastatin 10 mg 1 tab PO QDAY 09/30/24 11/18/24 H istory tablet (Vytorin) methylphenidate HCl 10 mg tablet 10 mg PO QAM 30 days #30 tabs 06/0 09/1911/18/24 Rx methylphenidate HCl 10 mg tablet 10 mg PO QAM 30 days #30 tabs 06/0 09/1911/18/24 Rx metoprolol succinate 25 mg 25 mg PO QHS #90 tabs 10/01/24 Rx tablet,extended release 24 hr Have you fallen in the past year?: No PFSH Medical History (Updated 11/18/24 @ 11:24 by Gerry Green MD) Osteoarthritis of carpometacarpal (CMC) joint of left thumb GERD (gastroesophageal reflux disease) ADHD (attention deficit hyperactivity disorder) Wears glasses Wears partial dentures Alcohol use History of steroid therapy High cholesterol Non-smoker Heartburn Gastric reflux History of stress test History of echocardiogram Cardiology follow-up encounter Hypertension Trigger thumb, right thumb Lateral epicondylitis of left elbow Left anterior shoulder pain Atherosclerosis of coronary artery without angina pectoris Elevated coronary artery calcium score Abnormal nuclear stress test Abnormal findings diagnostic imaging of heart and coronary circulation Colon cancer screening Family history of coronary artery disease in grandfather Family history of coronary artery disease in father Family history of coronary artery disease Surgical History S/P inguinal hernia repair using synthetic patch History of cardiac catheterization History of coronary artery stent placement (01/07/22) History of left heart catheterization (01/02/22) Family History Father Myocardial infarction, Onset Age: 43 CAD (coronary artery disease) CABG ICD Hypertension CHF (congestive heart failure) Grandmother No problems noted. 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 pets and animals: Yes (3 dogs, 1 cat) pets and animals: cat(s) and dog(s) Smoking Status: Never smoker alcohol intake: current alcohol intake frequency: a few times a week Alcohol type: beer and hard liquor substance use type: does not use HPI LEFT HAND/WRIST Details: This documentation accurately reflects the service provided and the decisions made by me, Dr. Gerry Green MD 11/18/24 8444. Part of today???s visit was documented by [ ], acting as scribe. TRU NESS is a 54 year old M here today for basilar thumb pain. Getting worse over the last 6 weeks. 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 Gxuvh-zxsx-nquzwglv. Basilar thumb somewhat worse when using the thumb. Cannot use a brace of work. Even hurts when putting on gloves. Worse with gripping. Ortho Exam General General: Yes no acute distress Neurologic: Yes alert and Yes oriented x3 Psychologic: Yes reasonable and appropriate Right Wrist/Hand Skin/Wound: No Swelling and No Ecchymosis Left Wrist/Hand Skin/Wound: Yes CDI, No Swelling, No Ecchymosis, Yes nail intact, Yes capillary refill normal and No erythema A1 susan trigger: No Left Wrist: Yes ROM-Extension 0-60, Yes ROM-Flexion 0-80, Yes ROM-Pronation 0-80, Yes ROM-Supination 0-90 and Yes tender to palpa (more content not included)... Normal [facility] Elbow min 3 Viewson 11-11-19 25 Elbow min 3 Views [facility] [address] [address] Elbow min 3 Views MR#: [id number] Acct: [id number] Name: TRU NESS Rep #: [id number] : 1970 M 54 From: Loki Gavin MD PCP: Dr. Beck Duran MD Status: REG CLI Study: Elbow min 3 Views Date of Exam: 11/10/24 Exam# [id number] Ordering Dr: Sasha Lewis EXAM: XR Left Elbow Complete, 3 or More Views CLINICAL INDICATION: ELBOW PAIN TECHNIQUE: Frontal, lateral and oblique views of the left elbow. COMPARISON: No relevant prior studies available. FINDINGS: BONES/JOINTS: Unremarkable. No acute fracture. No dislocation. SOFT TISSUES: Unremarkable. RAD/Elbow min 3 Views IMPRESSION: No acute fracture. Reading Location: [facility] CC: EYELET MACHINE OPERATOR-Christiano Lewis; Dr. Beck Duran MD Printing Estimator: Signed Normal [facility] Hand Min 3 Viewson 5 Hand Min 3 Views [facility] [address] [place], [place] [address] Hand Min 3 Views MR#: [id number] Acct: [id number] Name: TRU NESS Rep #: [id number] : 1970 M 54 From: Loki Gavin MD PCP: Dr. Beck uDran MD Status: REG CLI Study: Hand Min 3 Views Date of Exam: 11/10/24 Exam# [id number] Ordering Dr: Sasha Lewis EXAM: XR Left Hand Complete, 3 or More Views CLINICAL INDICATION: HAND AND BASE L THUMB PAIN TECHNIQUE: Frontal, lateral and oblique views of the left hand. COMPARISON: No relevant prior studies available. FINDINGS: BONES/JOINTS: Unremarkable. No acute fracture. No dislocation. SOFT TISSUES: Unremarkable. RAD/Hand Min 3 Views IMPRESSION: No acute fracture. Reading [facility] CC: TERRENCE Lewis; Dr. Beck Duran MD Printing Estimator: Signed Normal [facility] Orthopedic Visit Reporton Orthopedic Visit Report [facility] [address] [place] [address] [address] [place] [address] OFFICE VISIT Date of Service: 10/26/24 MR#: [id number] Acct: [id number] Name: TRU NESS Rep #: [id number] : 1970 Provider: TERRENCE grimes Age/Sex: 54/M Location: [facility] Status: Signed Intake Vital Signs 09/30/24 07:00 Height 5 ft 10 in Intake Visit Reasons: LEFT ELBOW Allergies bee venom protein (honey bee) Adverse Reaction (Severe, Verified 10/26/24 11:06) Anaphylaxis Medications ???Medication ???Instructions ???Recorded ???Confirmed ???Type aspirin 81 mg tablet,delayed 81 mg PO DAILY 11/30/21 10/26/24 H istory release (Adult Aspirin Regimen) famotidine 20 mg tablet (Pepcid) 20 mg PO BID 04/29/24 10/26/24 His tory atorvastatin 80 mg tablet 80 mg PO QHS #90 tabs 07/23/2405/22 Rx ezetimibe 10 mg tablet (Zetia) 10 mg PO QDAY #90 tabs 07/23/24 Rx ticagrelor 60 mg tablet (Brilinta) 60 mg PO BID #180 tabs 07/23/24 10/26/24 Rx ezetimibe 10 mg-simvastatin 10 mg 1 tab PO QDAY 09/30/24 10/26/24 H istory tablet (Vytorin) methylphenidate HCl 10 mg tablet 10 mg PO QAM 30 days #30 tabs 09/1910/26/24 Rx methylphenidate HCl 10 mg tablet 10 mg PO QAM 30 days #30 tabs 09/1910/26/24 Rx methylphenidate HCl 10 mg tablet 10 mg PO QAM 30 days #30 tabs 09/1910/26/24 Rx metoprolol succinate 25 mg 25 mg PO QHS #90 tabs 10/01/2405/22 Rx tablet,extended release 24 hr [facility] Medical History GERD (gastroesophageal reflux disease) ADHD (attention deficit hyperactivity disorder) Wears glasses Wears partial dentures Alcohol use History of steroid therapy High cholesterol Non-smoker Heartburn Gastric reflux History of stress test History of echocardiogram Cardiology follow-up encounter Hypertension Trigger thumb, right thumb Lateral epicondylitis of left elbow Left anterior shoulder pain Atherosclerosis of coronary artery without angina pectoris Elevated coronary artery calcium score Abnormal nuclear stress test Abnormal findings diagnostic imaging of heart and coronary circulation Colon cancer screening Family history of coronary artery disease in grandfather Family history of coronary artery disease in father Family history of coronary artery disease Surgical History S/P inguinal hernia repair using synthetic patch History of cardiac catheterization History of coronary artery stent placement (01/07/22) History of left heart catheterization (01/02/22) Family History Father Myocardial infarction, Onset Age: 43 CAD (coronary artery disease) CABG ICD Hypertension CHF (congestive heart failure) Grandmother No problems noted. 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 pets and animals: Yes (3 dogs, 1 cat) pets and animals: cat(s) and dog(s) Smoking Status: Never smoker alcohol intake: current alcohol intake frequency: a few times a week Alcohol type: beer and hard liquor substance use type: does not use HPI LEFT ELBOW Details: This documentation accurately reflects the service provided and the decisions made by Sasha contreras NP-C 10/26/24 1059. Part of today???s visit was documented by Maira JO, acting as scribe. TRU NESS is a 54 year old M here today for left arm pain. He states that the pain radiated from the elbow down into his thumb. It also radiates up the arm into the shoulder. He denies having neck pain. He states that the pain in mainly in the elbow and into the thumb but when it gets bad that is when it extends into the shoulder. He has been having this pain for a few months now but it has progressively gotten worse. Denies numbness, tingling or other associated symptoms. He denies any known injury. He has taken Tylenol and used Voltaren. He has also used a tennis elbow strap. He is unable to take NSAIDs due to cardiac risk. The Tylenol and Voltaren gel might take the edge off but does not give him a lot of relief. Agree with above, sx for months, sx progressing. 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 Normal [facility] Office Visit Reporton 2024 Office Visit Report [facility] [place] [place] [facility] [address] [place] [address] OFFICE VISIT Date of Service: 07/20/24 MR#: [id number] Acct: [id number] Patient: TRU NESS Rep #: [id number] : 1970 Provider: BRUCE Melendez Age/Sex: 54/M Location: [facility] Status: Signed Intake Vital Signs 06/24/24 07:53 Height 5 ft 10 in Intake Visit Reasons: COVID TEST/[employer] EMPLOYEE Chief Complaint: cough, ANDERSON, BA, drainage Allergies bee venom protein (honey bee) Adverse Reaction (Severe, Verified 09/30/24 07:02) Anaphylaxis Office Procedures [facility] Billing Sheet Covid Covid Swab-Rapid: Yes Results POC CEPH COV,FluAB,RSV PCR CEPHEID COVID PCR Not DETECTED Last Edit by Padma Cortes on 07/20/24 08:53 CEPHEID FLU AB PCR NOT DETECTED FLU A B Last Edit by Padma Cortes on 07/20/24 08:53 CEPHEID RSV PCR NOT DETECTED Last Edit by Padma Cortes on 07/20/24 08:53 10/05/24 1426 Date Davonte Dawson Signature: Date (if applicable) CC: Tony [facility] MR/BMS.BPon 09-30-2024 MR/BMS.BP [address], [place] [address] OFFICE VISIT Date of Service: 09/30/24 MR#: [id number] Acct: [id number] Name: TRU NESS Rep #: [id number] : 1970 Provider: TERRENCE oh Age/Sex: 54/M Location: [facility] Status: Signed Intake Vital Signs 06/24/24 07:53 07/23/24 07:47 09/30/24 07:00 Height 5 ft 10 in 5 ft 10 in 5 ft 10 in Weight: 191 lb 186 lb BMI 27.3 26.6 BP 115/78 126/84 H Blood Pressure Location Lt brachial Lt brachial Position Sitting Sitting Respiration 18 16 Pulse 59 L 58 L Pulse Source Monitor Monitor Pulse Oximetry (%) 98 BP Intake Visit Reasons: 3 M FU Accompanied by: Self Allergies bee venom protein (honey bee) Adverse Reaction (Severe, Verified 09/30/24 07:02) Anaphylaxis Medications ???Medication ???Instructions ???Recorded ???Confirmed ???Type aspirin 81 mg tablet,delayed 81 mg PO DAILY 11/30/21 09/30/24 H istory release (Adult Aspirin Regimen) metoprolol succinate 25 mg 25 mg PO QHS 02/02/24 09/30/24 His tory tablet,extended release 24 hr famotidine 20 mg tablet (Pepcid) 20 mg PO BID 04/29/24 09/30/24 His tory atorvastatin 80 mg tablet 80 mg PO QHS #90 tabs 07/23/2409/19 Rx ezetimibe 10 mg tablet (Zetia) 10 mg PO QDAY #90 tabs 07/23/24 Rx ticagrelor 60 mg tablet (Brilinta) 60 mg PO BID #180 tabs 07/23/24 09/30/24 Rx ezetimibe 10 mg-simvastatin 10 mg 1 tab PO QDAY 09/30/24 09/30/24 H istory tablet (Vytorin) methylphenidate HCl 10 mg tablet 10 mg PO QAM 30 days #30 tabs 060 09/1909/30/24 Rx methylphenidate HCl 10 mg tablet 10 mg PO QAM 30 days #30 tabs 060 09/1909/30/24 Rx methylphenidate HCl 10 mg tablet 10 mg PO QAM 30 days #30 tabs 060 09/1909/30/24 Rx PFSH Medical History GERD (gastroesophageal reflux disease) ADHD (attention deficit hyperactivity disorder) Wears glasses Wears partial dentures Alcohol use History of steroid therapy High cholesterol Non-smoker Heartburn Gastric reflux History of stress test History of echocardiogram Cardiology follow-up encounter Hypertension Trigger thumb, right thumb Lateral epicondylitis of left elbow Left anterior shoulder pain Atherosclerosis of coronary artery without angina pectoris Elevated coronary artery calcium score Abnormal nuclear stress test Abnormal findings diagnostic imaging of heart and coronary circulation Colon cancer screening Family history of coronary artery disease in grandfather Family history of coronary artery disease in father Family history of coronary artery disease Surgical History S/P inguinal hernia repair using synthetic patch History of cardiac catheterization History of coronary artery stent placement (01/07/22) History of left heart catheterization (01/02/22) Family History Father Myocardial infarction, Onset Age: 43 CAD (coronary artery disease) CABG ICD Hypertension CHF (congestive heart failure) Grandmother No problems noted. 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 pets and animals: Yes (3 dogs, 1 cat) pets and animals: cat(s) and dog(s) Smoking Status: Never smoker alcohol intake: current alcohol intake frequency: a few times a week Alcohol type: beer and hard liquor substance use type: does not use HPI History of Present Illness History provided by: patient HPI: Tru Ness is a 54 year old male patient presenting today for a follow up evaluation. 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 Does feel since completing school has been less stressed. Did have a 10 day vacation to [facility] and enjoyed this with his . Denies current feelings of depression. Denies SI/HI. Denies feelings of anxiety. Denies panic attacks. Does feel medication has been beneficial but is not always beneficial. Does feel he is getting the benefit that he thinks he can get from medication at current dose. Denies side effects from medication. Does report he has been eating less. Has lost about 15 pounds over the last 7 months but has been working on being more intentional with diet and increased activity. Previous similar episode: Yes Age of first onset of symptoms: 11-20 years Review of Systems Constitutional Reports: change in weight (loss); Denies: fever(s), chills or fatigue Eyes Denie (more content not included)... Normal [facility] Stress Reporton 07-30-2024 Stress Report [facility] [address] [place] [address] MR#: [id number] Acct: [id number] Name: TRU NESS Rep #: [id number] : 1970 54 From: Chance Lynn MD Primary Care: Dr. Beck Duran MD Status: REG CLI Referring Dr: Chelo Nascimento PA Sex: M C Stress Test Report Exercise myocardial perfusion stress test. 54-year-old man with a history of chest pain Stress protocol: Resting EKG demonstrates normal sinus rhythm with a rate of 60 bpm resting blood pressure is 114/68 mmHg. The patient exercised according to the regular [place] protocol for a total duration of 9 minutes attaining a maximum heart rate of 179 bpm which was 107% of maximum predicted heart rate; the maximum workload was 10.1 metabolic equivalents. At rest there were no ST or T wave changes noted to suggest ischemia and at peak exercise upsloping ST changes only were noted which did not meet the criteria for ischemia. No clinical angina was noted the test was terminated due to the target heart rate being achieved/fatigue. The peak blood pressure was 142/82 mmHg. Rate-pressure product was 24,000. Myocardial perfusion protocol. 11.5 mCi of technetium 99m sestamibi was injected at rest. The patient exercised according to regular [place] protocol for total duration of 9-minute and at peak exercise 33.8 mCi of technetium 99m sestamibi was injected stress images were obtained stress and rest images were reconstructed in comparing the short axis vertical long and horizontal long axis. Gated images were also obtained. Perfusion SPECT analysis: Review of the stress images demonstrate normal uptake of tracer noted in all areas of the myocardium. The resting images similarly demonstrate normal uptake of tracer noted in all areas of the myocardium. No areas of reversibility are noted to suggest ischemia no previous infarct was noted. Gated SPECT analysis: The gated ejection fraction is 81%. Conclusion: Normal exercise myocardial perfusion stress test at a high workload Preserved ejection fraction. 07/30/24 1532 Date Chance Lynn MD CC: Dr. Beck Duran MD; BRUCE Chavez Date Dictated: 07/30/24 1529 Date Transcribed: 07/30/24 152 Printing Estimator: CO Signed Normal [facility] Cardiology Visit Reporton Cardiology Visit Report [facility] [address] [place] [address] OFFICE VISIT Date of Service: 07/23/24 MR#: [id number] Acct: [id number] Name: TRU NESS Rep #: [id number] : 1970 Provider: BRUCE Dutton Age/Sex: 54/M Location: [facility].G Status: Signed HPI HPI History of Present Illness Details: Ovi Ness is a 54-year-old gentleman with a significant family history of coronary artery disease. His father had a myocardial infarction in his 40s, his grandfather had similar heart disease with an MA in his 60s. He did have an elevated calcium score of 241 which suggested moderate plaque burden. There was a suggestion of combination of soft and calcified plaque with mild to moderate disease noted in the mid LAD with possible moderate to severely partially obstructive plaque noted. He did undergo a stress test which was abnormal and demonstrated evidence of anterior apical ischemia at a high workload. Echocardiogram demonstrated an ejection fraction of 53%. No wall motion abnormality noted. Stage I diastolic dysfunction. In December he did undergo a diagnostic heart catheterization which demonstrated a totally occluded LAD with left to left collaterals with mild LV dysfunction, mild to moderate disease in the circumflex and RCA. Patient was evaluated at [facility] for revascularization of his totally occluded LAD. He did undergo 3 overlapped stents. 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 He is recovering from a URI. From a cardiac standpoint, patient is doing well. He has been having more frequent heartburn. He feels that this is what it is. He is going to do a GI workup. He does not have any chest discomfort/heaviness/ti ghtness. His exercise tolerance is stable for his age. He does not have any worsening symptoms of shortness of breath. He denies any PND. He does not have any orthopnea. He does not have any symptoms of congestive heart failure. He does not have any palpitations that he is aware of. He does not have any lightheadedness or dizziness. He does not have any near-syncope or syncope. He does not have any lower extremity edema. He does not have any symptoms of claudication. He is concerned about his family hx of SCD. Recent EKG demonstrated NSR. Intake Vital Signs 07/24/23 13:42 07/23/24 07:47 Height 5 ft 10 in 5 ft 10 in Weight: 191 lb BMI 27.3 BP 115/78 Blood Pressure Location Lt brachial Position Sitting Respiration 18 Pulse 59 L Pulse Source Monitor Pulse Oximetry (%) 98 Intake Visit Reasons: 1 Y FU Laboratory Animal Facility Supervisor Required: No Is patient in pain?: No Allergies bee venom protein (honey bee) Adverse Reaction (Severe, Verified 07/23/24 08:27) Anaphylaxis Medications ???Medication ???Instructions ???Recorded ???Confirmed ???Type aspirin 81 mg tablet,delayed 81 mg PO DAILY 11/30/21 07/23/24 H istory release (Adult Aspirin Regimen) ticagrelor 90 mg tablet (Brilinta) 90 mg PO BID 01/08/24 07/23/24 H istory metoprolol succinate 25 mg 25 mg PO QHS 02/02/24 07/23/24 His tory tablet,extended release 24 hr famotidine 20 mg tablet (Pepcid) 20 mg PO BID 04/29/24 07/23/24 His tory methylphenidate HCl 10 mg tablet 10 mg PO QAM 30 days #30 tabs 05/3007/23/24 Rx benzonatate 200 mg capsule 200 mg PO TID PRN cough #20 caps 0 07/20/24 07/23/24 Rx methylprednisolone 4 mg tablets in See Rx Instructions PO PER PKG D IR 07/20/24 07/23/24 Rx a dose pack (Medrol (Alex)) #21 tabs atorvastatin 80 mg tablet 80 mg PO QHS #90 tabs 07/23/24 Rx ezetimibe 10 mg tablet (Zetia) 10 mg PO QDAY #90 tabs 07/23/24 Rx ticagrelor 60 mg tablet (Brilinta) 60 mg PO BID #180 tabs 07/23/24 07/23/24 Rx Ejection fraction %: 60 Have you fallen in the past year?: No PFSH Medical History GERD (gastroesophageal reflux disease) ADHD (attention deficit hyperactivity disorder) Wears glasses Wears partial dentures Alcohol use History of steroid therapy High cholesterol Non-smoker Heartburn Gastric reflux History of stress test History of echocardiogram Cardiology follow-up encounter Hypertension Trigger thumb, right thumb Lateral epicondylitis of left elbow Left anterior shoulder pain Atherosclerosis of coronary artery without angina pectoris Elevated coronary artery calcium score Abnormal nuclear stress test Abnormal findings diagnostic imaging of heart and coronary circulation Colon cancer screening Family history of coronary artery disease in grandfather Family history of coronary artery disease in father Family history of coronary artery disease Surgical History S/P inguinal hernia r (more content not included)... Normal [facility] Office Visit Reporton 2024 Office Visit Report [facility] [address] [place] [address] OFFICE VISIT Date of Service: 07/20/24 MR#: [id number] Acct: [id number] Patient: TRU NESS Rep #: [id number] : 1970 Provider: BRUCE Melendez Age/Sex: 54/M Location: [facility] Status: Signed Employer Purchased Covid Test Note: Patient here today for Covid Testing, requested by their Employer. Assessment and Plan Assessment and Plan Orders: Orders POC Cepheid Covid, FluAB, RSV Today 07/20/24818 Date Davonte Mathewigndiana Signature: Date (if applicable) CC: Normal [facility] Urgent Care Visit Reporton 0 07-20-2024 Urgent Care Visit Report [facility] [address], [address] [place] [address] OFFICE VISIT Date of Service: 07/20/24 MR#: [id number] Acct: [id number] Name: TRU NESS Rep #: [id number] : 1970 Provider: BRUCE Melendez Age/Sex: 54/M Location: [facility] Status: Signed Intake Vital Signs 06/24/24 07:53 07/20/24 08:15 Height 5 ft 10 in BP 120/87 H 118/60 Blood Pressure Location Lt brachial Lt brachial Position Sitting Sitting Respiration 16 15 Pulse 79 74 Pulse Source Monitor NIBP Temp 98.4 F Temp Source Oral Pulse Oximetry (%) 97 Oxygen Delivery Method room air Intake Visit Reasons: COUGH, CONGESTION Chief Complaint: cough, ANDERSON, BA, drainage Laboratory Animal Facility Supervisor Required: No Is patient in pain?: No Allergies bee venom protein (honey bee) Adverse Reaction (Severe, Verified 07/20/24 08:16) Anaphylaxis Have you fallen in the past year?: No Nurse's Note: cough, ANDERSON, BA, drainage x 4 days without resolve. denies fever, [facility] Medical History (Updated 06/17/24 @ 08:58 by Sasha Lewis NP-C) GERD (gastroesophageal reflux disease) ADHD (attention deficit hyperactivity disorder) Wears glasses Wears partial dentures Alcohol use History of steroid therapy High cholesterol Non-smoker Heartburn Gastric reflux History of stress test History of echocardiogram Cardiology follow-up encounter Hypertension Trigger thumb, right thumb Lateral epicondylitis of left elbow Left anterior shoulder pain Atherosclerosis of coronary artery without angina pectoris Elevated coronary artery calcium score Abnormal nuclear stress test Abnormal findings diagnostic imaging of heart and coronary circulation Colon cancer screening Family history of coronary artery disease in grandfather Family history of coronary artery disease in father Family history of coronary artery disease Surgical History (Updated 02/11/24 @ 17:[address] Isra Jiménez MD) S/P inguinal hernia repair using synthetic patch History of cardiac catheterization History of coronary artery stent placement (01/07/22) History of left heart catheterization (01/02/22) Family History (Updated 03/05/24 @ 15:31 by Hue Madsen) Father Myocardial infarction, Onset Age: 43 CAD (coronary artery disease) CABG ICD Hypertension CHF (congestive heart failure) Grandmother No problems noted. 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 Patient notes no complaints of fever, chills, nausea/vomiting/diarrhe a, or chest pain or shortness of breath or dyspnea on exertion. Several close contacts recently dx???d w/ similar URI complaints. No [id number] taken to assist. No other associated symptoms and no other alleviating/aggravating factors. ROS Const Constitutional: No other (As above) Exam Const General: cooperative, healthy appearing and no acute distress Orientation: alert, awake and oriented x3 HENMT Head: normal to inspection Ears: hearing grossly normal bilaterally, external ears normal, TM's normal bilaterally and EAC's normal Nose: external nose normal, nares normal, septum normal and clear nasal discharge Face and sinus: normal facial exam, sinuses nontender and face symmetric Mouth: oral mucosae normal, lip normal, tongue normal and oropharynx normal Throat: posterior oropharynx normal, tonsils normal, uvula midline and no postnasal drainage Eyes General: appearance normal, both eyes and all related structures Neck Neck: normal visual inspection, full ROM, no lymphadenopathy, no meningeal signs and supple Neck mass: No Thyroid: thyroid normal Lymphatic: no lymphadenopathy noted Chest Chest palpation inspection: normal inspection of the chest Resp Effort Inspection: normal respiratory effort, able to speak in complete sentences and cough Quality of cough: wet (nonproductive in office today) Auscultation: Bilateral: Clear to Auscultation Cardio Palpation: normal PMI Rate: Regular Rhythm: regular rhythm Heart Sounds: S1 normal, S2 normal, no gallops, no mur (more content not included)... Normal [facility] MR/BMS.BPjacki 06-24-2024 MR/BMS. [facility] [address] [place] [address], [address] [place] [id number] OFFICE VISIT Date of Service: 06/24/24 MR#: [id number] Acct: [id number] Name: TRU NESS Rep #: [id number] : 1970 Provider: TERRENCE oh Age/Sex: 54/M Location: [facility] Status: Signed Intake Vital Signs 05/27/24 06:57 06/24/24 07:53 Height 5 ft 10 in 5 ft 10 in Weight: 192 lb BMI 27.5 BP 109/76 120/87 H Blood Pressure Location Lt brachial Lt brachial Position Sitting Sitting Respiration 16 16 Pulse 61 79 Pulse Source Monitor Monitor BP Intake Visit Reasons: 4Wfu Accompanied by: Self Allergies bee venom protein (honey bee) Adverse Reaction (Severe, Verified 06/24/24 07:57) Anaphylaxis Medications ???Medication ???Instructions ???Recorded ???Confirmed ???Type aspirin 81 mg tablet,delayed 81 mg PO DAILY 11/30/21 06/24/24 H istory release (Adult Aspirin Regimen) atorvastatin 80 mg tablet 80 mg PO QHS #90 tabs 07/24/23 Rx ticagrelor 90 mg tablet (Brilinta) 90 mg PO BID 01/08/24 06/24/24 H istory metoprolol succinate 25 mg 25 mg PO QHS 02/02/24 06/24/24 His tory tablet,extended release 24 hr famotidine 20 mg tablet (Pepcid) 20 mg PO BID 04/29/24 06/24/24 His tory methylphenidate HCl 10 mg tablet 10 mg PO QAM 30 days #30 tabs 02/2 11/1906/24/24 Rx methylphenidate HCl 10 mg tablet 10 mg PO QAM 30 days #30 tabs 0211/1906/24/24 Rx PFSH Medical History (Updated 06/17/24 @ 08:58 by TERRENCE Avina) GERD (gastroesophageal reflux disease) ADHD (attention deficit hyperactivity disorder) Wears glasses Wears partial dentures Alcohol use History of steroid therapy High cholesterol Non-smoker Heartburn Gastric reflux History of stress test History of echocardiogram Cardiology follow-up encounter Hypertension Trigger thumb, right thumb Lateral epicondylitis of left elbow Left anterior shoulder pain Atherosclerosis of coronary artery without angina pectoris Elevated coronary artery calcium score Abnormal nuclear stress test Abnormal findings diagnostic imaging of heart and coronary circulation Colon cancer screening Family history of coronary artery disease in grandfather Family history of coronary artery disease in father Family history of coronary artery disease Surgical History (Updated 02/11/24 @ 17:[address] Isra Jiménez MD) S/P inguinal hernia repair using synthetic patch History of cardiac catheterization History of coronary artery stent placement (01/07/22) History of left heart catheterization (01/02/22) Family History (Updated 03/05/24 @ 15:31 by Hue Madsen) Father Myocardial infarction, Onset Age: 43 CAD (coronary artery disease) CABG ICD Hypertension CHF (congestive heart failure) Grandmother No problems noted. 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 pets and animals: Yes (3 dogs, 1 cat) pets and animals: cat(s) and dog(s) Smoking Status: Never smoker alcohol intake: current alcohol intake frequency: a few times a week Alcohol type: beer and hard liquor substance use type: does not use HPI History of Present Illness History provided by: patient HPI: Tru Ness is a 54 year old male patient presenting today for a follow up evaluation. Reports he is still in school and working. States he has been having some heightened anxiety with planning for his exit exams for school. Does feel he has noticed some difference in increasing medication dosing. Does report some struggles are related to poor habits that he has had and sometimes struggles with changing these behaviors. Does feel he has had improvements in focus, concentration, motivation, and reduced procrastination. Denies any noted side effects from medication. Denies any feelings of depression. Denies SI/HI. Admits to some appropriate level of anxiety due to stressors with work. Denies any changes in sleep. Denies any changes in appetite. Previous similar episode: Yes Age of first onset of symptoms: 11-20 years Review of Systems Constitutional Denies: fever(s), chills, change in weight or fatigue Eyes Denies: change in vision or blurry vision Ears, Nose, Mouth, Throat Denies: throat pain or neck pain Cardiovascular Denies: chest pain, palpitations or dyspnea Respiratory Denies: dyspnea or wheezing Gastrointestinal Reports: heartburn; Denies: abdominal pain, nausea, vomiting, diarrhea or constipation Genitourinary Denies: dysuria, urinary frequency or urinary urgency Musculoskeletal Denies: back pain or neck pa (more content not included)... Normal [facility] Orthopedic Visit Reporton Orthopedic Visit Report [facility] [address] [place] [id number] OFFICE VISIT Date of Service: 06/17/24 MR#: [id number] Acct: [id number] Name: TRU NESS Rep #: [id number] : 1970 Provider: TERRENCE grimes Age/Sex: 54/M Location: [facility] Status: Signed Intake Vital Signs 05/27/24 06:57 Height 5 ft 10 in Weight: 192 lb BMI 27.5 BP 109/76 Blood Pressure Location Lt brachial Position Sitting Respiration 16 Pulse 61 Pulse Source Monitor Intake Visit Reasons: RIGHT ELBOW Accompanied by: Self Is patient in pain?: Yes Pain scale (1-10): 6 Allergies bee venom protein (honey bee) Adverse Reaction (Severe, Verified 06/17/24 08:09) Anaphylaxis Medications ???Medication ???Instructions ???Recorded ???Confirmed ???Type aspirin 81 mg tablet,delayed 81 mg PO DAILY 11/30/21 06/17/24 H istory release (Adult Aspirin Regimen) atorvastatin 80 mg tablet 80 mg PO QHS #90 tabs 07/24/23 Rx ticagrelor 90 mg tablet (Brilinta) 90 mg PO BID 01/08/24 06/17/24 H istory metoprolol succinate 25 mg 25 mg PO QHS 02/02/24 06/17/24 His tory tablet,extended release 24 hr famotidine 20 mg tablet (Pepcid) 20 mg PO BID 04/29/24 06/17/24 His tory methylphenidate HCl 10 mg tablet 10 mg PO QAM 30 days #30 tabs 04/3006/17/24 Rx PFSH Medical History (Updated 06/17/24 @ 08:58 by TERRENCE Avina) GERD (gastroesophageal reflux disease) ADHD (attention deficit hyperactivity disorder) Wears glasses Wears partial dentures Alcohol use History of steroid therapy High cholesterol Non-smoker Heartburn Gastric reflux History of stress test History of echocardiogram Cardiology follow-up encounter Hypertension Trigger thumb, right thumb Lateral epicondylitis of left elbow Left anterior shoulder pain Atherosclerosis of coronary artery without angina pectoris Elevated coronary artery calcium score Abnormal nuclear stress test Abnormal findings diagnostic imaging of heart and coronary circulation Colon cancer screening Family history of coronary artery disease in grandfather Family history of coronary artery disease in father Family history of coronary artery disease Surgical History (Updated 02/11/24 @ 17:[address] Isra Jiménez MD) S/P inguinal hernia repair using synthetic patch History of cardiac catheterization History of coronary artery stent placement (01/07/22) History of left heart catheterization (01/02/22) Family History (Updated 03/05/24 @ 15:31 by Hue Madsen) Father Myocardial infarction, Onset Age: 43 CAD (coronary artery disease) CABG ICD Hypertension CHF (congestive heart failure) Grandmother No problems noted. 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 pets and animals: Yes (3 dogs, 1 cat) pets and animals: cat(s) and dog(s) Smoking Status: Never smoker alcohol intake: current alcohol intake frequency: a few times a week Alcohol type: beer and hard liquor substance use type: does not use HPI RIGHT ELBOW Details: This documentation accurately reflects the service provided and the decisions made by me, TERRENCE Avina 06/17/24 0757. Part of today???s visit was documented by [ ], acting as scribe. TRU NESS is a 54 year old M here today for right elbow pain. Patient notes that he has had right elbow pain for about 6 months. Patient denies any known injury. Patient states that he has pain over his lateral elbow into his forearm. He has increased pain with activities, twisting and gripping although his pain is constant. Patient denies any numbness or tingling. Patient is unable to take ibuprofen. He has tried voltaren gel and tylenol which havent been helpful. He denies any injections, physical therapy or MRI. He had xrays which are here for review. Agree with above. Ovi is a pleasant 54-year-old gentleman presenting with 6-month history of right lateral elbow pain. He is right-hand dominant. No known injury, symptoms progressive over time. Worsening with certain motions as noted above. Denies any paresthesias, no nighttime awakening. Patient has a history of lateral epicondylitis on the left elbow, the symptoms are progressing the same. Patient did get good relief with cortisone injection in the past of the opposite elbow. ROS Const All systems reviewed are unremarkable except as noted in H and other (A O x 3, no apparent distress. No recent illness.) Card Denies chest pain, Denies dyspnea, Denies edema and Reports other (No pa (more content not included)... Normal [facility] Elbow min 3 Viewson 06-14-19 Elbow min 3 Views [facility] Imaging Services [facility] [place] [address] Elbow min 3 Views MR#: [id number] Acct: [id number] Name: TRU NESS Rep #: [id number] : 1970 M 54 From: Varinder Orellana PCP: Dr. Beck Duran MD Status: REG CLI Study: Elbow min 3 Views Date of Exam: 06/14/24 Exam# [id number] Ordering Dr: Sasha Lewis PROCEDURE: ELBOW MIN 3 VIEWS REASON FOR EXAM: Pain TECHNIQUE: Three views of the right elbow COMPARISON: None. FINDINGS: See impression RAD/Elbow min 3 Views IMPRESSION: Negative for fracture or malalignment. No significant joint effusion or arthropathy. Mild posterior olecranon enthesopathy. Reading Location: [facility] CC: TERRENCE Lewis; Dr. Beck Duran MD Printing Estimator: Signed Normal [facility] MR/BMS.BPon 05-27-2024 MR/BMS.[address], [address] [place] [id number] OFFICE VISIT Date of Service: 05/27/24 MR#: [id number] Acct: [id number] Name: TRU NESS Rep #: [id number] : 1970 Provider: TERRENCE oh Age/Sex: 54/M Location: [facility].BP Status: Signed Intake Vital Signs 04/29/24 07:52 05/10/24 15:34 05/27/24 06:57 Height 5 ft 10 in 5 ft 10 in 5 ft 10 in Weight: 192 lb BMI 27.5 BP 109/70 109/76 Blood Pressure Location Lt brachial Lt brachial Position Sitting Sitting Respiration 18 16 Pulse 65 61 Pulse Source Monitor Monitor BP Intake Visit Reasons: follow up Accompanied by: Self Allergies bee venom protein (honey bee) Adverse Reaction (Severe, Verified 05/27/24 07:00) Anaphylaxis Medications ???Medication ???Instructions ???Recorded ???Confirmed ???Type aspirin 81 mg tablet,delayed 81 mg PO DAILY 11/30/21 05/27/24 H istory release (Adult Aspirin Regimen) atorvastatin 80 mg tablet 80 mg PO QHS #90 tabs 07/24/23 Rx ticagrelor 90 mg tablet (Brilinta) 90 mg PO BID 01/08/24 05/27/24 H istory metoprolol succinate 25 mg 25 mg PO QHS 02/02/24 05/27/24 His tory tablet,extended release 24 hr famotidine 20 mg tablet (Pepcid) 20 mg PO BID 04/29/24 05/27/24 His tory methylphenidate HCl 10 mg tablet 10 mg PO QAM 30 days #30 tabs 04/3005/27/24 Rx PFSH Medical History (Updated 03/10/24 @ 07:55 by TERRENCE Chan) GERD (gastroesophageal reflux disease) ADHD (attention deficit hyperactivity disorder) Wears glasses Wears partial dentures Alcohol use History of steroid therapy High cholesterol Non-smoker Heartburn Gastric reflux History of stress test History of echocardiogram Cardiology follow-up encounter Hypertension Trigger thumb, right thumb Lateral epicondylitis of left elbow Left anterior shoulder pain Atherosclerosis of coronary artery without angina pectoris Elevated coronary artery calcium score Abnormal nuclear stress test Abnormal findings diagnostic imaging of heart and coronary circulation Colon cancer screening Family history of coronary artery disease in grandfather Family history of coronary artery disease in father Family history of coronary artery disease Surgical History (Updated 02/11/24 @ 17:[address] Isra Jiménez MD) S/P inguinal hernia repair using synthetic patch History of cardiac catheterization History of coronary artery stent placement (01/07/22) History of left heart catheterization (01/02/22) Family History (Updated 03/05/24 @ 15:31 by Hue Madsen) Father Myocardial infarction, Onset Age: 43 CAD (coronary artery disease) CABG ICD Hypertension CHF (congestive heart failure) Grandmother No problems noted. 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 pets and animals: Yes (3 dogs, 1 cat) pets and animals: cat(s) and dog(s) Smoking Status: Never smoker alcohol intake: current alcohol intake frequency: a few times a week Alcohol type: beer and hard liquor substance use type: does not use HPI History of Present Illness History provided by: patient HPI: Tru Ness is a 53 year old male patient presenting today for a follow up evaluation. Does report since starting the methylphenidate he has been monitor his BP and has had an EKG and everything has looked normal. Does feel there has been some improvement in focus but it is not a dramatic change. Does feel it is adequate at times but not always. Does feel he needed this especially this term in school as he needs it in his last semester. Does feel he is still procrastinating some things. Denies any side effects from medication. Denies any changes in sleep since last appointment. Denies any changes in appetite. 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 Denies feelings of depression. Denies SI/HI. Previous similar episode: Yes Age of first onset of symptoms: 11-20 years Review of Systems Constitutional Denies: fever(s), chills, change in weight or fatigue Eyes Denies: change in vision or blurry vision Ears, Nose, Mouth, Throat Denies: throat pain or neck pain Cardiovascular Denies: chest pain, palpitations or dyspnea Respiratory Denies: dyspnea or wheezing Gastrointestinal Reports: heartburn; Denies: abdominal pain, nausea, vomiting, diarrhea or constipation Genitourinary Denies: dysuria, urinary frequency or urinary urgency Musculoskeletal Denies: back pain or neck pain Integumentary/Breast De (more content not included)... Normal [facility] 12 Lead EKG performed by [facility] on 2024 12 Lead EKG performed by [place] [id number] [place] [address] 12 Lead EKG performed by [facility] 05/13/24 0746 MR#: [id number] Acct: [id number] Name: TRU NESS Rep #: [id number] : 1970 54 From: Chance Lynn MD Attending Dr: Dr. Chance Lynn MD Status: DEP A MB Ordering Dr: Chance Lynn MD Date: 05/13/24 Location: [facility] Sex: M C Admitted: [facility]/12 Lead EKG performed by [facility] ECG Report Interpretation ---Sinus Rhythm WITHIN NORMAL LIMITSElectronically signed on 05/17/2024 at 08:24 by Chance Lynn [employer] Version 8610 05/17/2428 Date Chance Lynn MD CC: Dr. Beck Duran MD Date Dictated: 05/13/24745 Date Transcribed: 05/13/24745 Printing Estimator: CO Signed Normal [facility] MR/BMS.BPon 04-29-2024 MR/BMS.BP [address], [address] [place] [address] OFFICE VISIT Date of Service: 04/29/24 MR#: [id number] Acct: [id number] Name: TRU NESS Rep #: [id number] : 1970 Provider: TERRENCE oh Age/Sex: 53/M Location: [facility]. Status: Signed Intake Vital Signs 03/10/24 06:56 04/29/24 07:52 Height 5 ft 10 in 5 ft 10 in Weight: 203 lb BMI 29.1 BP 105/76 109/70 Blood Pressure Location Rt brachial Lt brachial Position Sitting Sitting Respiration 18 18 Pulse 60 65 Pulse Source Monitor Monitor BP Intake Visit Reasons: 6 wk FU Allergies bee venom protein (honey bee) Adverse Reaction (Severe, Verified 03/10/24 07:00) Anaphylaxis Medications ???Medication ???Instructions ???Recorded ???Confirmed ???Type aspirin 81 mg tablet,delayed 81 mg PO DAILY 11/30/21 04/29/24 History release (Adult Aspirin Regimen) atorvastatin 80 mg tablet 80 mg PO QHS #90 tabs 07/24/23 04/29/24 Rx ticagrelor 90 mg tablet (Brilinta) 90 mg PO BID 01/08/24 04/29/24 History metoprolol succinate 25 mg 25 mg PO QHS 02/02/24 04/29/24 History tablet,extended release 24 hr famotidine 20 mg tablet (Pepcid) 20 mg PO BID 04/29/24 04/29/24 History viloxazine 200 mg capsule,extended 200 mg PO QDAY #60 caps 04/29/24 04/29/24 Rx release 24 hr (Qelbree) [facility] Medical History (Updated 03/10/24 @ 07:55 by Sara Aguirre NP-C) GERD (gastroesophageal reflux disease) ADHD (attention deficit hyperactivity disorder) Wears glasses Wears partial dentures Alcohol use History of steroid therapy High cholesterol Non-smoker Heartburn Gastric reflux History of stress test History of echocardiogram Cardiology follow-up encounter Hypertension Trigger thumb, right thumb Lateral epicondylitis of left elbow Left anterior shoulder pain Atherosclerosis of coronary artery without angina pectoris Elevated coronary artery calcium score Abnormal nuclear stress test Abnormal findings diagnostic imaging of heart and coronary circulation Colon cancer screening Family history of coronary artery disease in grandfather Family history of coronary artery disease in father Family history of coronary artery disease Surgical History (Updated 02/11/24 @ 17:[address] Isra Jiménez MD) S/P inguinal hernia repair using synthetic patch History of cardiac catheterization History of coronary artery stent placement (01/07/22) History of left heart catheterization (01/02/22) Family History (Updated 03/05/24 @ 15:31 by Hue Madsen) Father Myocardial infarction, Onset Age: 43 CAD (coronary artery disease) CABG ICD Hypertension CHF (congestive heart failure) Grandmother No problems noted. 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 pets and animals: Yes (3 dogs, 1 cat) pets and animals: cat(s) and dog(s) Smoking Status: Never smoker alcohol intake: current alcohol intake frequency: a few times a week Alcohol type: beer and hard liquor substance use type: does not use HPI History of Present Illness History provided by: patient HPI: Tru Ness is a 53 year old male patient presenting today for a follow up evaluation. Admits to having some difficulties with nausea with atomoxetine, especially in the first 3 days. Is still experiencing this daily with the medication, especially if he isn't eating with it. Has not noticed any side effects from the medication. Reports he has not noticed any benefits from the medication, and he reports his endorses this as well. Is still struggling with procrastinating and finishing tasks. Does struggle the most with school. Has not seen any improvements in focus, concentration, or inattention. Appetite has been fine, and has been eating more truing to decrease nausea. Sleep has been about the same as before and is getting 8 hours per night. Has not noticed any changes in mood. Denies any feelings of depression. Denies SI/HI. Denies any increases in anxiety. Previous similar episode: Yes Age of first onset of symptoms: 11-20 years Review of Systems Constitutional Denies: fever(s), chills, change in weight or fatigue Eyes Denies: change in vision or blurry vision Ears, Nose, Mouth, Throat Denies: throat pain or neck pain Cardiovascular Denies: chest pain, palpitations or dyspnea Respiratory Denies: dyspnea or wheezing Gastrointestinal Reports: heartburn; Denies: abdominal pain, nausea, vomiting, diarrhea or constipation Genitourinary Denies: dysuria, urinary frequency or urinary urgency Musculoskeletal Denies: (more content not included)... Normal [facility] Toe(s) Min 2 Viewson 024 Toe(s) Min 2 Views [facility] Imaging Services [address] [place], [place] [address] Toe(s) Min 2 Views MR#: [id number] Acct: [id number] Name: TRU NESS Rep #: [id number] : 1970 M 53 From: Nick Ledezma PCP: Dr. Beck Duran MD Status: REG CLI Study: Toe(s) Min 2 Views Date of Exam: 03/18/24 Exam# [id number] Ordering [place]: [place] [id number] INDICATION: Pain in left toe(s) EXAMINATION/TECHNIQUE: X-RAY - LEFT FOOT XR Toes Min 2 Views 3 VIEWS COMPARISON: FINDINGS: SOFT TISSUES: No soft tissue swelling or gas. No radiopaque foreign body. BONES/JOINTS: No acute fracture or subluxation.. Normal alignment. Preservation of the joint space.. No sclerotic or destructive changes observed. RAD/Toe(s) Min 2 Views IMPRESSION: Negative. Electronically Signed: Nick Ledezma DO at 16:05 EST Reading Location ID and State: [facility] / [place] Tel [phone], Service support , CC: Dr. Beck Duran MD Printing Estimator: Signed Normal [facility] MR/BMS.BPon 03-10-2024 MR/BMS.BP [address], [address] [place] [id number] OFFICE VISIT Date of Service: 03/10/24 MR#: [id number] Acct: [id number] Name: TRU NESS Rep #: [id number] : 1970 Provider: TERRENCE oh Age/Sex: 53/M Location: [facility].BP Status: Signed Intake Vital Signs 02/02/24 06:47 03/10/24 06:56 Height 5 ft 10 in 5 ft 10 in Weight: 203 lb BMI 29.1 BP 105/76 Blood Pressure Location Rt brachial Position Sitting Respiration 18 Pulse 60 Pulse Source Monitor BP Intake Visit Reasons: ADHD Accompanied by: Self Allergies bee venom protein (honey bee) Adverse Reaction (Severe, Verified 03/10/24 07:00) Anaphylaxis Medications ???Medication ???Instructions ???Recorded ???Confirmed ???Type aspirin 81 mg tablet,delayed 81 mg PO DAILY 11/30/21 03/05/24 History release (Adult Aspirin Regimen) atorvastatin 80 mg tablet 80 mg PO QHS #90 tabs 07/24/23 03/05/24 Rx ticagrelor 90 mg tablet (Brilinta) 90 mg PO BID 01/08/24 03/05/24 History lansoprazole 15 mg capsule,delayed 15 mg PO DAILY 02/02/24 03/05/24 History release metoprolol succinate 25 mg 25 mg PO QHS 02/02/24 03/05/24 History tablet,extended release 24 hr atomoxetine 40 mg capsule 40 mg PO QAM #30 caps 03/10/24 03/10/24 Rx PFSH Medical History (Updated 03/10/24 @ 07:55 by Sara Aguirre NP-C) GERD (gastroesophageal reflux disease) ADHD (attention deficit hyperactivity disorder) Wears glasses Wears partial dentures Alcohol use History of steroid therapy High cholesterol Non-smoker Heartburn Gastric reflux History of stress test History of echocardiogram Cardiology follow-up encounter Hypertension Trigger thumb, right thumb Lateral epicondylitis of left elbow Left anterior shoulder pain Atherosclerosis of coronary artery without angina pectoris Elevated coronary artery calcium score Abnormal nuclear stress test Abnormal findings diagnostic imaging of heart and coronary circulation Colon cancer screening Family history of coronary artery disease in grandfather Family history of coronary artery disease in father Family history of coronary artery disease Surgical History (Updated 02/11/24 @ 17:[address] Isra Jiménez MD) S/P inguinal hernia repair using synthetic patch History of cardiac catheterization History of coronary artery stent placement (01/07/22) History of left heart catheterization (01/02/22) Family History (Updated 03/05/24 @ 15:31 by Hue Madsen) Father Myocardial infarction, Onset Age: 43 CAD (coronary artery disease) CABG ICD Hypertension CHF (congestive heart failure) Grandmother No problems noted. 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 pets and animals: Yes (3 dogs, 1 cat) pets and animals: cat(s) and dog(s) Smoking Status: Never smoker alcohol intake: current alcohol intake frequency: a few times a week Alcohol type: beer and hard liquor substance use type: does not use HPI History of Present Illness History provided by: patient Chief complaint: Inattention HPI: Tru Ness is a 53 year old male patient presenting today for an intake evaluation. Presents today for concerns of ADHD. Sleep: Denies difficulties falling asleep. Admits to waking up in the middle of the night and sometimes struggles to fall back to sleep. Admits to a large amount of racing thoughts when he wakes up in the middle of the night. 8 hours per night. Denies daytime napping. Interest: Is able to find salazar in things. Enjoys spending time with friends and family, reading, and watching movies. Dabbles in a little of everything. Denies feelings of depression ever. Energy: Sometimes feels well rested. Is not a morning person. Does feel energy is fine. Admits to a large struggle with getting motivated to begin projects until he is approaching the deadline for it to be due. Guilt: Denies Concentration: Admits to a large issues with focus, concentration, and inattention. Does feel it is worse with school but has struggled with this at work in the past. Does feel this has an impact on his life at home as well. Admits to not being a good student in the past. Admits to being easily distracted. Is unsure if he pays close attention to things and will at times make careless mistakes. Admits to at times struggling with not listening when he is being spoken to directly. Does feel he is able to follow instructions. Does struggle with organization when it comes to school. Does feel life and the way he does things its disorganized. Admits to avoiding the mo (more content not included)... Normal [facility] COVID-19 virus antigen assay Ordered By: Beck Duran on 01-15-2023 SARS-CoV-2 (COVID-19) Ag IA.rapid Ql (Resp) [facility] Absolute lymphocyte countOrd ered By: HEALTH ASSESSMENT on 01-01-2023 Lymphocytes Auto (Unsp spec) [#/Vol] 1.65 10*3/uL 0.83-4.51 [facility] Absolute reticulocyte countO rdered By: HEALTH ASSESSMENT on 01-01-2023 Reticulocytes (Bld) [#/Vol] 0.00 10*3/uL 0-5 [facility] Basophil percentageOrdered B y: HEALTH ASSESSMENT on 01-01-2023 Basophil percentage 3.5 mg/dL 2.5-4.9 [facility] Bilirubin [Mass/Vol] 1.00 mg/dL 0.20-1.00 [facility] Comment on above: For patients on eltr ombopag therapy, use of Dimension [place] TBIL is not recommended. Chloride [Moles/Vol] 109 mmol/L 98-107 [facility] Cholesterol [Mass/Vol] 119 mg/dL <200 [facility] Comment on above: <200 mg/dL Desirable 200-240 mg/dL Borderline >240 mg/dL High Risk Glucose [Mass/Vol] 75 mg/dL 74-106 [facility] LDH [Catalytic activity/Vol] 238 U/L 87-241 [facility] Neutrophils (Bld) [#/Vol] 4.9 10*3/uL 2.0-7.7 [facility] Potassium [Moles/Vol] 3.9 mmol/L 3.5-5.1 [facility] Protein [Mass/Vol] 7.4 g/dL 6.4-8.2 [facility] Sodium [Moles/Vol] 140 mmol/L 136-145 [facility] [facility] Triglyceride [Mass/Vol] 158 mg/dL <199 [facility] Comment on above: The drugs N-Acetylcy steine and Metamizole may falsely depress this assay.Serum Triglycerides Reference Interval Normal <150 mg/dL Borderline high 150 - 199 mg/dL High 200 - 499 mg/dL Very High > or = 500 mg/dL WBC (Bld) [#/Vol] 8.0 10*3/uL 4.4-11.0 [facility] Blood erythrocytes count (nu mber/volume)Ordered By: HEALTH ASSESSMENT on 01-01-2023 RBC (Bld) [#/Vol] 5.40 10*6/uL 4.6-6.2 [facility] Blood hemoglobin measurement (mass/volume)Ordered By: HEALTH ASSESSMENT on 01-01-2023 Hemoglobin (Bld) [Mass/Vol] 16.4 g/dL 13.0-16.5 [facility] Blood platelet mean volumeOr dered By: HEALTH ASSESSMENT on 01-01-2023 Platelet mean volume (Bld) [Entitic vol] 10.5 fL 6.2-12.0 [facility] Determination of erythrocyte mean corpuscular volume (MCV)Ordered By: HEALTH ASSESSMENT on 01-01-2023 MCV (RBC) [Entitic vol] 89.3 fL 80-94 [facility] Direct bilirubinOrdered By: HEALTH ASSESSMENT on 01-01-2023 Bilirubin.direct [Mass/Vol] 0.27 mg/dL 0.00-0.30 [facility] Hematocrit Auto (Bld) [Volum e fraction]Ordered By: HEALTH ASSESSMENT on 01-01-2023 Hematocrit (Bld) [Volume fraction] 48.2 % 40-54 [facility] Laboratory - Chemistry and C hemistry - challengeOrdered By: HEALTH ASSESSMENT on 01-01-2023 ALP [Catalytic activity/Vol] 124 U/L 45-117 [facility] ALT [Catalytic activity/Vol] 61 U/L 16-61 [facility] Cholesterol.total/Cho lesterol in HDL [Mass ratio] 3.70 {ratio} [facility] CO2 [Moles/Vol] 24.0 mmol/L 21.0-32.0 [facility] Globulin (S) [Mass/Vol] 3.8 g/dL 2.2-4.2 [facility] Urea nitrogen/Creatinine [Mass ratio] 14.3 mg/mg 10-20 [facility] Laboratory - Hematology and Cell countsOrdered By: HEALTH ASSESSMENT on 01-01-2023 Erythrocyte distribution width (RBC) [Entitic vol] 42.8 fL 35.1-43.9 [facility] Erythrocyte distribution width (RBC) [Ratio] 13.2 % 11.6-14.6 [facility] MCH (RBC) [Entitic mass] 30.4 pg 27.0-32.0 [facility] Nucleated RBC/100 WBC (Bld) [Ratio] 0 % 0-5 [facility] MCHC Auto (RBC) [Mass/Vol]Or dered By: HEALTH ASSESSMENT on 01-01-2023 MCHC (RBC) [Mass/Vol] 34.0 g/dL 32-36 [facility] No Panel InformationOrdered By: HEALTH ASSESSMENT on 01-01-2023 Estimated GFR (MDRD) Amer 77 mL/min >60 [facility] Comment on above: GFR Calc Estimated GFR (MDRD) Non-Af Amer 64 mL/min >60 [facility] Comment on above: Non- GFR Calc No Panel InformationOrdered By: Stepan Marie on 01-01-2023 Rubella IgG Antibody Reactive Nonreactive [facility] Comment on above: Antibody Results Int erpretation of Immune Status Non Reactive Presumed Non-Immune Equivocal Equivocal Reactive Presumed Immune Platelets bldOrdered By: HEA LT ASSESSMENT on 01-01-2023 Platelets (Bld) [#/Vol] 236 10*3/uL 150-450 [facility] Segmented neutrophils/100 WB C Auto (Bld)Ordered By: HEALTH ASSESSMENT on 01-01-2023 Segmented neutrophils/100 WBC (Bld) 61.7 % 47-70 [facility] Serum Varicella zoster virus IgG antibody assay by immunoassay (units/volume)Ordered By: Stepan Marie on 01-01-2023 VZV IgG IA Qn (S) 2122 index Immune >165 [facility] Comment on above: Negative <135 Equivo chelsea 135 - 165 Positive >165A positive result generally indicates exposure to thepathogen or administration of specific immunoglobulins,but it is not indication of active infection or stageof disease. Serum mumps virus IgG antibo dy assay (units/volume)Ordered By: Stepan Marie on 01-01-2023 MuV IgG Qn (S) 64.7 AU/mL Immune >10.9 [facility] Comment on above: Negative <9.0 Equivo chelsea 9.0 - 10.9 Positive >10.9A positive result generally indicates past exposure toMumps virus or previous vaccination.Performed at: [address] [id number] Director: Leon Smart PhD, Phone: [phone] Serum or plasma albumin jasmina urement (mass/volume)Ordered By: HEALTH ASSESSMENT on 01-01-2023 Albumin [Mass/Vol] 3.6 g/dL 3.2-5.0 [facility] Serum or plasma albumin/glob ulin mass ratioOrdered By: HEALTH ASSESSMENT on 01-01-2023 Albumin/Globulin [Mass ratio] 0.9 {ratio} 0.9-2.4 [facility] Serum or plasma calcium jasmina urement (mass/volume)Ordered By: HEALTH ASSESSMENT on 01-01-2023 Calcium [Mass/Vol] 8.7 mg/dL 8.5-10.1 [facility] Serum or plasma cholesterol in HDL measurement (mass/volume)Ordered By: HEALTH ASSESSMENT on 01-01-2023 Cholesterol in HDL [Mass/Vol] 32 mg/dL >40 [facility] Comment on above: The drugs N-Acetylcy steine and Metamizole may falsely depress this assay. Reference Range HDL <40 mg/dL Low HDL Cholesterol HDL >or= 60 mg/dL High HDL Cholesterol Serum or plasma cholesterol in VLDL measurement (mass/volume)Ordered By: HEALTH ASSESSMENT on 01-01-2023 Cholesterol in VLDL [Mass/Vol] 32 mg/dL 5-40 [facility] Serum or plasma creatinine m easurement (mass/volume)Ordered By: HEALTH ASSESSMENT on 01-01-2023 Creatinine [Mass/Vol] 1.26 mg/dL 0.70-1.30 [facility] Comment on above: The validity of the calculated GFR & GFRAA in patients over 70 years has not been determined. Clinical correlation is essential. Serum or plasma low density lipoprotein (LDL) cholesterol measurement (mass/volume)Ordered By: HEALTH ASSESSMENT on 01-01-2023 Cholesterol in LDL [Mass/Vol] 55 mg/dL 0-130 [facility] Serum or plasma urea nitroge n measurement (mass/volume)Ordered By: HEALTH ASSESSMENT on 01-01-2023 Urea nitrogen [Mass/Vol] 18 mg/dL 7-18 [facility] Serum or plasma uric acid me asurement (mass/volume)Ordered By: HEALTH ASSESSMENT on 01-01-2023 Urate [Mass/Vol] 8.0 mg/dL 3.5-7.2 [facility] Comment on above: The drugs N-Acetylcy steine and Metamizole may falsely depress this assay. Thin prep Papanicolaou smear with manual screeningOrdered By: HEALTH ASSESSMENT on 01-01-2023 Thin prep Papanicolaou smear with manual screening 32 U/L 15-37 [facility] Thin prep Papanicolaou smear with manual screening 7 5-15 [facility] Laboratory - Microbiology an d Antimicrobial susceptibilityon 02-01-2022 SARS-CoV-2 (COVID-19) RNA ALBERTINA+probe Ql (Unsp spec) Detected [facility] Work Phone: Basophil percentageon 2021 Chloride [Moles/Vol] 106 mmol/L 98-107 [facility] Work Phone: Glucose [Mass/Vol] 90 mg/dL 74-106 [facility] Work Phone: Potassium [Moles/Vol] 3.8 mmol/L 3.5-5.1 [facility] Work Phone: Sodium [Moles/Vol] 139 mmol/L 136-145 [facility] Work Phone: [phone] WBC (Bld) [#/Vol] 7.7 10*3/uL 4.4-11.0 [facility] Work Phone: Blood erythrocytes count (nu mber/volume)on 01-12-2022 RBC (Bld) [#/Vol] 5.01 10*6/uL 4.6-6.2 [facility] Work Phone: Blood hemoglobin measurement (mass/volume)on 01-12-2022 Hemoglobin (Bld) [Mass/Vol] 15.4 g/dL 13.0-16.5 [facility] Work Phone: Blood platelet mean volumeon 01-12-2022 Platelet mean volume (Bld) [Entitic vol] 10.0 fL 6.2-12.0 [facility] Work Phone: Determination of erythrocyte mean corpuscular volume (MCV)on 01-12-2022 MCV (RBC) [Entitic vol] 90.0 fL 80-94 [facility] Work Phone: Hematocrit Auto (Bld) [Volum e fraction]on 01-12-2022 Hematocrit (Bld) [Volume fraction] 45.1 % 40-54 [facility] Work Phone: Laboratory - Chemistry and C hemistry - challengeon 01-12-2022 CO2 [Moles/Vol] 27.0 mmol/L 21.0-32.0 [facility] Work Phone: Urea nitrogen/Creatinine [Mass ratio] 17.8 mg/mg 10-20 [facility] Work Phone: Laboratory - Hematology and Cell countson 01-12-2022 Erythrocyte distribution width (RBC) [Entitic vol] 41.1 fL 35.1-43.9 [facility] Work Phone: Erythrocyte distribution width (RBC) [Ratio] 12.5 % 11.6-14.6 [facility] Work Phone: MCH (RBC) [Entitic mass] 30.7 pg 27.0-32.0 [facility] Work Phone: MCHC Auto (RBC) [Mass/Vol]on 01-12-2022 MCHC (RBC) [Mass/Vol] 34.1 g/dL 32-36 [facility] Work Phone: No Panel Informationon 01-12 Estimated GFR (MDRD) Amer 94 mL/min >60 [facility] Work Phone: Comment on above: GFR Calc Estimated GFR (MDRD) Non-Af Amer 78 mL/min >60 [facility] Work Phone: Comment on above: Non- GFR Calc Platelets bldon 01-12-2022 Platelets (Bld) [#/Vol] 228 10*3/uL 150-450 [facility] Work Phone: Serum or plasma calcium jasmina urement (mass/volume)on 01-12-2022 Calcium [Mass/Vol] 9.2 mg/dL 8.5-10.1 [facility] Work Phone: Serum or plasma creatinine m easurement (mass/volume)on 01-12-2022 Creatinine [Mass/Vol] 1.07 mg/dL 0.70-1.30 [facility] Work Phone: Comment on above: The validity of the calculated GFR & GFRAA in patients over 70 years has not been determined. Clinical correlation is essential. Serum or plasma urea nitroge n measurement (mass/volume)on 01-12-2022 Urea nitrogen [Mass/Vol] 19 mg/dL - [facility] Work Phone: Thin prep Papanicolaou smear with manual screeningon 01-12-2022 Thin prep Papanicolaou smear with manual screening 6 - [facility] Work Phone: ACT,Whole Bloodon 01-08-2022 ACT,Whole Blood OutOfRange Critically abnormal 90-134 [facility] Comment on above: Result Comment: ACTB O Performed by [employer] ID: [id number] [place], [place] ACT testing is not intended for patients taking aprotonin, patients with hematocrits of <20% or >55%, patients using other types of anticoagulation medications, and patients with Lupus Anticoagulant. Performed By: #### A CTBO #### [facility] [address] [place] [address] ACT,Whole Blood 327 s High 90-134 [facility] Comment on above: Result Comment: ACTB O Performed by [employer] ID: [id number] [place], [place] ACT testing is not intended for patients taking aprotonin, patients with hematocrits of <20% or >55%, patients using other types of anticoagulation medications, and patients with Lupus Anticoagulant. Performed By: #### A CTBO #### [facility] [address] [place] [address] ACT,Whole Blood 366 s High 90-134 [facility] Comment on above: Result Comment: ACTB O Performed by [employer] ID: [id number] [place], [place] ACT testing is not intended for patients taking aprotonin, patients with hematocrits of <20% or >55%, patients using other types of anticoagulation medications, and patients with Lupus Anticoagulant. Performed By: #### A CTBO #### [facility] [address] ACT,Whole Blood 220 s High 90-134 [facility] Comment on above: Result Comment: ACTB O Performed by [employer] ID: [id number] [place], [place] ACT testing is not intended for patients taking aprotonin, patients with hematocrits of <20% or >55%, patients using other types of anticoagulation medications, and patients with Lupus Anticoagulant. Performed By: #### A CTBO #### [facility] [place] [address] Catheterization and angiogra phy procedure details panelon 01-07-2022 [facility] -- CARDIAC CATHETERIZATION Patient: Tru Ness Procedure Date: 01/07/2022 : 1970 Age: 51 Gender: M Patient Type: Outpatient Procedure physician: Loki Sexton MD Fellow: Ángel Ocampo Referring Physician: Loki Sexton MD -- INDICATIONS: Positive nuclear medicine stress test. See diagnostic cath. -- Procedures performed: # Right common femoral angiography. # Left heart catheterization. # Right coronary angiography. # Left coronary angiography. # Pressure derived flow reserve measurement. # Percutaneous intervention on the 100% chronic total occlusion in the mid LAD. Balloon angioplasty. Stent placement. Interventional IVUS. # Percutaneous intervention on the 95% stenosis in the proximal LAD. Stent placement. Balloon angioplasty. Interventional IVUS. 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 IMPRESSIONS: 1. 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 Proximal LAD further post-dilated with a 4.0mm NC balloon and the midLAD post-dilated with the 3.5mm stent balloon. 2. Dtb-frfs-exeyiegz moderate 50% focal proximal LCx stenosis, iFR 1.0. No PCI indicated. 3. Normal LVEDP; no . RECOMMENDATIONS: 1. Patient management should include aggressive risk factor modification and a cardiac rehabilitation program. The patient was counseled regarding the importance of adherence to the prescribed antiplatelet therapy and a low fat diet. The patient should continue with the present medications. 2. Add optimal medical therapy of the patient's disease. 3. Aspirin, with a standing dose of 81mgPOdaily. 4. Dual antiplatelet therapy uninterrupted 12 month(s) minimum. -- HISTORY: Hypertension. Risk factors: Dyslipidemia. Family history is significant for coronary artery disease. -- LABS, PRIOR TESTS, PROCEDURES, and SURGERY: Hemoglobin (pre-procedure) of 17.1 g/dl. Platelet count of 265 th/ul. Serum creatinine (current admission) of 1.19 mg/dl. -- PROCEDURE IN DETAIL: Study status: Cardiac cath: elective. Consent: The risks, benefits, and alternatives to the procedure and sedation wer e explained to the patient and informed consent was obtained. Radiation exposure: Fluoroscopy time: 27.7 min. Total air KERMA: 821 mGy. Location: Catheterization laboratory. PROCEDURE: 1. Initial setup. The patient was brought to the laboratory. A baseline ECG was recorded. Intravenous access was obtained. Surface ECG leads, blood pressure measurements, and pulse oximetric signals were monitored. 2. Skin preparation. The planned puncture sites were prepped and draped in the usual sterile manner. 3. Local anesthesia. 1% lidocaine was administered to the right groin. 4. Right femoral artery access. The vessel was cannulated with a Micro needle using the modified Seldinger technique. A 7Fr x 10cm [place] sheath was advanced into the vessel. 5. Right common femoral angiography, under fluoroscopic guidance. A micropuncture angiocatheter catheter was introduced. Contrast was injected. Images were obtained using GRUBER projections. 6. Local anesthesia. 1% lidocaine was administered to the to the right wrist. 7. Right radial artery access. The vessel was cannulated using the modified Seldinger technique. A 6FR x [facility]cm [facility] was advanced into the vessel. 8. A 5Fr x 100cm JR4 catheter was placed. 9. Left heart catheterization. An a 5Fr x 100cm JR4 was advanced and placed across the aortic valve into the left ventricle under fluoroscopic guidance. The catheter was advanced to the left ventricle under fluoroscopic guidance. Resting hemodynamics were obtained. 10. Selective right coronary angiography, with access from the right radial artery. A 5Fr x 100cm JR4 catheter was introduced. Contrast was injected. Images were obtained using multiple projections. 11. Selective left coronary angiography. A 7fr x 100cm Launcher [id number] (more content not included)... [facility] CARDIOLOG[facility] Loki Sexton MD - 01/07/2022 [facility] -- CARDIAC CATHETERIZATION Patient: Tru Ness Procedure Date: 01/07/2022 : 1970 Age: 51 Gender: M Patient Type: Outpatient Procedure physician: Loki Sexton MD Fellow: Ángel Ocampo Referring Physician: Loki Sexton MD -- INDICATIONS: Positive nuclear medicine stress test. See diagnostic cath. -- Procedures performed: # Right common femoral angiography. # Left heart catheterization. # Right coronary angiography. # Left coronary angiography. # Pressure derived flow reserve measurement. # Percutaneous intervention on the 100% chronic total occlusion in the mid LAD. Balloon angioplasty. Stent placement. Interventional IVUS. # Percutaneous intervention on the 95% stenosis in the proximal LAD. Stent placement. Balloon angioplasty. Interventional IVUS. 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 IMPRESSIONS: 1. 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 Proximal LAD further post-dilated with a 4.0mm NC balloon and the midLAD post-dilated with the 3.5mm stent balloon. 2. Urt-zypm-eezofhhi moderate 50% focal proximal LCx stenosis, iFR 1.0. No PCI indicated. 3. Normal LVEDP; no . RECOMMENDATIONS: 1. Patient management should include aggressive risk factor modification and a cardiac rehabilitation program. The patient was counseled regarding the importance of adherence to the prescribed antiplatelet therapy and a low fat diet. The patient should continue with the present medications. 2. Add optimal medical therapy of the patient's disease. 3. Aspirin, with a standing dose of 81mgPOdaily. 4. Dual antiplatelet therapy uninterrupted 12 month(s) minimum. -- HISTORY: Hypertension. Risk factors: Dyslipidemia. Family history is significant for coronary artery disease. -- LABS, PRIOR TESTS, PROCEDURES, and SURGERY: Hemoglobin (pre-procedure) of 17.1 g/dl. Platelet count of 265 th/ul. Serum creatinine (current admission) of 1.19 mg/dl. -- PROCEDURE IN DETAIL: Study status: Cardiac cath: elective. Consent: The risks, benefits, and alternatives to the procedure and sedation wer e explained to the patient and informed consent was obtained. Radiation exposure: Fluoroscopy time: 27.7 min. Total air KERMA: 821 mGy. Location: Catheterization laboratory. PROCEDURE: 1. Initial setup. The patient was brought to the laboratory. A baseline ECG was recorded. Intravenous access was obtained. Surface ECG leads, blood pressure measurements, and pulse oximetric signals were monitored. 2. Skin preparation. The planned puncture sites were prepped and draped in the usual sterile manner. 3. Local anesthesia. 1% lidocaine was administered to the right groin. 4. Right femoral artery access. The vessel was cannulated with a Micro needle using the modified Seldinger technique. A 7Fr x 10cm [place] sheath was advanced into the vessel. 5. Right common femoral angiography, under fluoroscopic guidance. A micropuncture angiocatheter catheter was introduced. Contrast was injected. Images were obtained using GRUBER projections. 6. Local anesthesia. 1% lidocaine was administered to the to the right wrist. 7. Right radial artery access. The vessel was cannulated using the modified Seldinger technique. A 6FR x 10cm [employer] sheath was advanced into the vessel. 8. A 5Fr x 100cm JR4 catheter was placed. 9. Left heart catheterization. An a 5Fr x 100cm JR4 was advanced and placed across the aortic valve into the left ventricle under fluoroscopic guidance. The catheter was advanced to the left ventricle under fluoroscopic guidance. Resting hemodynamics were obtained. 10. Selective right coronary angiography, with access from the right radial artery. A 5Fr x 100cm JR4 catheter was introduced. Contrast was injected. Images were obtained using multiple projections. 11. Selective left coronary angiography. A 7fr x 100cm Launcher [id number] catheter was introduced. Contrast was injected. Images were (more content not included)... [facility] Work Phone: [facility] Work Phone: Absolute lymphocyte counton 01-01-2022 Lymphocytes Auto (Unsp spec) [#/Vol] 3.84 10*3/uL 0.83-4.51 [facility] Work Phone: Basophil percentageon 2021 Basophils/100 WBC (Bld) 1.1 % 0-1 [facility] Work Phone: Chloride [Moles/Vol] 106 mmol/L 98-107 [facility] Work Phone: Eosinophils/100 WBC (Bld) 2.4 % 0-5 [facility] Work Phone: Glucose [Mass/Vol] 77 mg/dL 74-106 [facility] Work Phone: Neutrophils (Bld) [#/Vol] 4.9 10*3/uL 2.0-7.7 [facility] Work Phone: Neutrophils/100 WBC (Bld) 47.8 % 47-70 [facility] Work Phone: Potassium [Moles/Vol] 4.0 mmol/L 3.5-5.1 [facility] Work Phone: Sodium [Moles/Vol] 140 mmol/L 136-145 [facility] Work Phone: WBC (Bld) [#/Vol] 10.3 10*3/uL 4.4-11.0 [facility] Work Phone: Blood erythrocytes count (nu mber/volume)on 01-01-2022 RBC (Bld) [#/Vol] 5.42 10*6/uL 4.6-6.2 [facility] Work Phone: [phone] Blood hemoglobin measurement (mass/volume)on 01-01-2022 Hemoglobin (Bld) [Mass/Vol] 17.1 g/dL 13.0-16.5 [facility] Work Phone: [phone] Blood lymphocytes/100 leukoc yteson 01-01-2022 Lymphocytes/100 WBC (Bld) 37.4 % 19-41 [facility] Work Phone: [phone] Blood monocytes/100 leukocyt eson 01-01-2022 Monocytes/100 WBC (Bld) 9.1 % 0-10 [facility] Work Phone: [phone] Blood platelet mean volumeon 01-01-2022 Platelet mean volume (Bld) [Entitic vol] 9.8 fL 6.2-12.0 [facility] Work Phone: [phone] Determination of erythrocyte mean corpuscular volume (MCV)on 01-01-2022 MCV (RBC) [Entitic vol] 90.0 fL 80-94 [facility] Work Phone: [phone] Hematocrit Auto (Bld) [Volum e fraction]on 01-01-2022 Hematocrit (Bld) [Volume fraction] 48.8 % 40-54 [facility] Work Phone: [phone] Laboratory - Chemistry and C hemistry - challengeon 01-01-2022 CO2 [Moles/Vol] 28.0 mmol/L 21.0-32.0 [facility] Work Phone: [phone] Urea nitrogen/Creatinine [Mass ratio] 18.5 mg/mg 10-20 [facility] Work Phone: [phone] Laboratory - Hematology and Cell countson 01-01-2022 Erythrocyte distribution width (RBC) [Entitic vol] 43.5 fL 35.1-43.9 [facility] Work Phone: [phone] Erythrocyte distribution width (RBC) [Ratio] 13.2 % 11.6-14.6 [facility] Work Phone: [phone] Immature granulocytes/100 WBC (Bld) 2.200 % 0.0-0.9 [facility] Work Phone: [phone] Comment on above: IG% - Immature Granu locytes (promyelocytes, myelocytes and metamyelocytes) > 1% indicates that a LEFT SHIFT is Present. MCH (RBC) [Entitic mass] 31.5 pg 27.0-32.0 [facility] Work Phone: [phone] Nucleated RBC/100 WBC (Bld) [Ratio] 0 % 0-5 [facility] Work Phone: [phone] MCHC Auto (RBC) [Mass/Vol]on 01-01-2022 MCHC (RBC) [Mass/Vol] 35.0 g/dL 32-36 [facility] Work Phone: [phone] Panel Informationon 01-01 Estimated Creatinine Clearance Calc 76.68 ml/min [facility] Work Phone: [phone] Estimated GFR (MDRD) Amer 83 mL/min >60 [facility] Work Phone: [phone] Comment on above: GFR Calc Estimated GFR (MDRD) Non-Af Amer 69 mL/min >60 [facility] Work Phone: [phone] Comment on above: Non- GFR Calc Platelets bldon 01-01-2022 Platelets (Bld) [#/Vol] 265 10*3/uL 150-450 [facility] Work Phone: [phone] Serum or plasma calcium jasmina urement (mass/volume)on 01-01-2022 Calcium [Mass/Vol] 9.1 mg/dL 8.5-10.1 [facility] Work Phone: [phone] Serum or plasma creatinine m easurement (mass/volume)on 01-01-2022 Creatinine [Mass/Vol] 1.19 mg/dL 0.70-1.30 [facility] Work Phone: [phone] Comment on above: The validity of the calculated GFR & GFRAA in patients over 70 years has not been determined. Clinical correlation is essential. Serum or plasma urea nitroge n measurement (mass/volume)on 01-01-2022 Urea nitrogen [Mass/Vol] 22 mg/dL 7-18 [facility] Work Phone: Thin prep Papanicolaou smear with manual screeningon 01-01-2022 Thin prep Papanicolaou smear with manual screening 6 5-15 [facility] Work Phone: Absolute lymphocyte counton 09-19-2021 Lymphocytes Auto (Unsp spec) [#/Vol] 1.64 10*3/uL 0.83-4.51 [facility] Work Phone: Absolute reticulocyte counto n 09-19-2021 Reticulocytes (Bld) [#/Vol] 0.00 10*3/uL 0-5 [facility] Work Phone: Basophil percentageon 2021 Basophil percentage 2.9 mg/dL 2.5-4.9 [facility] Work Phone: Bilirubin [Mass/Vol] 0.70 mg/dL 0.20-1.00 [facility] Work Phone: Comment on above: For patients on eltr ombopag therapy, use of Dimension [place] TBIL is not recommended. Chloride [Moles/Vol] 107 mmol/L 98-107 [facility] Work Phone: Cholesterol [Mass/Vol] 184 mg/dL <200 [facility] Work Phone: Comment on above: <200 mg/dL Desirable 200-240 mg/dL Borderline >240 mg/dL High Risk Glucose [Mass/Vol] 95 mg/dL 74-106 [facility] Work Phone: Neutrophils (Bld) [#/Vol] 3.0 10*3/uL 2.0-7.7 [facility] Work Phone: Potassium [Moles/Vol] 3.9 mmol/L 3.5-5.1 [facility] Work Phone: Protein [Mass/Vol] 7.3 g/dL 6.4-8.2 [facility] Work Phone: Sodium [Moles/Vol] 139 mmol/L 136-145 [facility] Work Phone: Triglyceride [Mass/Vol] 60 mg/dL <199 [facility] Work Phone: [phone] Comment on above: The drugs N-Acetylcy steine and Metamizole may falsely depress this assay.Serum Triglycerides Reference Interval Normal <150 mg/dL Borderline high 150 - 199 mg/dL High 200 - 499 mg/dL Very High > or = 500 mg/dL WBC (Bld) [#/Vol] 5.6 10*3/uL 4.4-11.0 [facility] Work Phone: [phone] Blood erythrocytes count (nu mber/volume)on 09-19-2021 RBC (Bld) [#/Vol] 5.31 10*6/uL 4.6-6.2 [facility] Work Phone: [phone] Blood hemoglobin measurement (mass/volume)on 09-19-2021 Hemoglobin (Bld) [Mass/Vol] 16.2 g/dL 13.0-16.5 [facility] Work Phone: [phone] Blood platelet mean volumeon 09-19-2021 Platelet mean volume (Bld) [Entitic vol] 10.0 fL 6.2-12.0 [facility] Work Phone: [phone] Determination of erythrocyte mean corpuscular volume (MCV)on 09-19-2021 MCV (RBC) [Entitic vol] 89.1 fL 80-94 [facility] Work Phone: [phone] Direct bilirubinon Bilirubin.direct [Mass/Vol] 0.17 mg/dL 0.00-0.30 [facility] Work Phone: [phone] Hematocrit Auto (Bld) [Volum e fraction]on 09-19-2021 Hematocrit (Bld) [Volume fraction] 47.3 % 40-54 [facility] Work Phone: [phone] Laboratory - Chemistry and C hemistry - challengeon 09-19-2021 ALP [Catalytic activity/Vol] 84 U/L 45-117 [facility] Work Phone: [phone] ALT [Catalytic activity/Vol] 43 U/L 16-61 [facility] Work Phone: Cholesterol.total/Cho lesterol in HDL [Mass ratio] 4.60 {ratio} [facility] Work Phone: [phone] CO2 [Moles/Vol] 28.0 mmol/L 21.0-32.0 [facility] Work Phone: [phone] Globulin (S) [Mass/Vol] 3.7 g/dL 2.2-4.2 [facility] Work Phone: [phone] Urea nitrogen/Creatinine [Mass ratio] 14.9 mg/mg 10-20 [facility] Work Phone: [phone] Laboratory - Hematology and Cell countson 09-19-2021 Erythrocyte distribution width (RBC) [Entitic vol] 42.4 fL 35.1-43.9 [facility] Work Phone: [phone] Erythrocyte distribution width (RBC) [Ratio] 13.0 % 11.6-14.6 [facility] Work Phone: [phone] MCH (RBC) [Entitic mass] 30.5 pg 27.0-32.0 [facility] Work Phone: [phone] Nucleated RBC/100 WBC (Bld) [Ratio] 0 % 0-5 [facility] Work Phone: [phone] MCHC Auto (RBC) [Mass/Vol]on 09-19-2021 MCHC (RBC) [Mass/Vol] 34.2 g/dL 32-36 [facility] Work Phone: [phone] Panel Informationon 09-19 Estimated GFR (MDRD) Amer 100 mL/min >60 [facility] Work Phone: [phone] Comment on above: GFR Calc Estimated GFR (MDRD) Non-Af Amer 83 mL/min >60 [facility] Work Phone: [phone] Comment on above: Non- GFR Calc Platelets bldon 09-19-2021 Platelets (Bld) [#/Vol] 240 10*3/uL 150-450 [facility] Work Phone: [phone] Segmented neutrophils/100 WB C Auto (Bld)on 05-25-2022 Segmented neutrophils/100 WBC (Bld) 52.6 % 47-70 [facility] Work Phone: Serum or plasma albumin jasmina urement (mass/volume)on 09-19-2021 Albumin [Mass/Vol] 3.6 g/dL 3.2-5.0 [facility] Work Phone: Serum or plasma albumin/glob ulin mass ratioon 09-19-2021 Albumin/Globulin [Mass ratio] 1.0 {ratio} 0.9-2.4 [facility] Work Phone: Serum or plasma calcium jasmina urement (mass/volume)on 09-19-2021 Calcium [Mass/Vol] 8.5 mg/dL 8.5-10.1 [facility] Work Phone: Serum or plasma cholesterol in HDL measurement (mass/volume)on 09-19-2021 Cholesterol in HDL [Mass/Vol] 40 mg/dL >40 [facility] Work Phone: Comment on above: The drugs N-Acetylcy steine and Metamizole may falsely depress this assay. Reference Range HDL <40 mg/dL Low HDL Cholesterol HDL >or= 60 mg/dL High HDL Cholesterol Serum or plasma cholesterol in VLDL measurement (mass/volume)on 09-19-2021 Cholesterol in VLDL [Mass/Vol] 12 mg/dL 5-40 [facility] Work Phone: Serum or plasma creatinine m easurement (mass/volume)on 09-19-2021 Creatinine [Mass/Vol] 1.01 mg/dL 0.70-1.30 [facility] Work Phone: Comment on above: The validity of the calculated GFR & GFRAA in patients over 70 years has not been determined. Clinical correlation is essential. Serum or plasma low density lipoprotein (LDL) cholesterol measurement (mass/volume)on 09-19-2021 Cholesterol in LDL [Mass/Vol] 132 mg/dL 0-130 [facility] Work Phone: Serum or plasma urea nitroge n measurement (mass/volume)on 09-19-2021 Urea nitrogen [Mass/Vol] 15 mg/dL 7-18 [facility] Work Phone: Serum or plasma uric acid me asurement (mass/volume)on 09-19-2021 Urate [Mass/Vol] 5.4 mg/dL 3.5-7.2 [facility] Work Phone: Comment on above: The drugs N-Acetylcy steine and Metamizole may falsely depress this assay. Thin prep Papanicolaou smear with manual screeningon 09-19-2021 Thin prep Papanicolaou smear with manual screening 20 U/L 15-37 [facility] Work Phone: Thin prep Papanicolaou smear with manual screening 4 5-15 [facility] Work Phone: Thin prep Papanicolaou smear with manual screening 180 U/L 87-241 [facility] Work Phone: Vital Signs Date Time Vital Sign Value Performing Clinician Faci lity 01-01-2023 14:46-0400 Body height 177.[address] Jossue Douglas Work Phone: [facility] 07-24-2022 12:52-0400 Body height 177.[address] Jossue Douglas Work Phone: [facility] 07-24-2022 12:52-0400 Body mass index (BMI) [Ratio] 26.8 kg/m2 Dr. Jossue Douglas Work Phone: [facility] 07-24-2022 12:52-0400 Body weight 84.[address] Jossue Douglas Work Phone: [facility] 07-24-2022 12:52-0400 Diastolic blood pressure 78 mm[Hg] Dr. Jossue Douglas Work Phone: [facility] 07-24-2022 12:52-0400 Heart rate 72 /min Dr. Jossue Douglas Work Phone: [facility] 07-24-2022 12:52-0400 Respiratory rate 18 /min Dr. Jossue Douglas Work Phone: [facility] 07-24-2022 12:52-0400 SaO2% (BldA) [Mass fraction] 97 % Dr. Jossue Douglas Work Phone: [facility] 07-24-2022 12:52-0400 Systolic blood pressure 117 mm[Hg] Dr. Jossue Douglas Work Phone: [facility] 05-29-2022 08:57-0500 Body height 177.[address] Jossue Douglas Work Phone: [facility] 05-29-2022 08:57-0500 Body mass index (BMI) [Ratio] 26.9 kg/m2 Dr. Jossue Douglas Work Phone: [facility] 05-29-2022 08:57-0500 Body temperature 95.7 [degF] Dr. Jossue Douglas Work Phone: [facility] 05-29-2022 08:57-0500 Body weight 85.[address] Jossue Douglas Work Phone: [facility] 05-29-2022 08:57-0500 Diastolic blood pressure 80 mm[Hg] Dr. Jossue Douglas Work Phone: [facility] 05-29-2022 08:57-0500 Heart rate 61 /min Dr. Jossue Douglas Work Phone: [facility] 05-29-2022 08:57-0500 Respiratory rate 16 /min Dr. Jossue Douglas Work Phone: [facility] 05-29-2022 08:57-0500 SaO2% (BldA) [Mass fraction] 95 % Dr. Jossue Douglas Work Phone: [facility] 05-29-2022 08:57-0500 Systolic blood pressure 102 mm[Hg] Dr. Jossue Douglas Work Phone: [facility] 04-03-2022 09:32-0500 Body temperature 96.3 [degF] Dr. Jossue Douglas Work Phone: [facility] 04-03-2022 09:32-0500 Body weight 83.[address] Jossue Douglas Work Phone: [facility] 04-03-2022 09:32-0500 Diastolic blood pressure 84 mm[Hg] Dr. Jossue Douglas Work Phone: [facility] 04-03-2022 09:32-0500 Heart rate 81 /min Dr. Jossue Douglas Work Phone: [facility] 04-03-2022 09:32-0500 Respiratory rate 18 /min Dr. Jossue Douglas Work Phone: [facility] 04-03-2022 09:32-0500 SaO2% (BldA) [Mass fraction] 98 % Dr. Jossue Douglas Work Phone: [facility] 04-03-2022 09:32-0500 Systolic blood pressure 104 mm[Hg] Dr. Jossue Douglas Work Phone: [facility] 03-28-2022 00:34-0500 Body weight 83.[address] Jossue Douglas Work Phone: [facility] 03-18-2022 07:30-0500 Body height 177.[address] Jossue Douglas Work Phone: [facility] Work Phone: 03-18-2022 07:30-0500 Body weight 83.[address] Jossue Douglas Work Phone: [facility] 02-27-2022 08:27-0400 Body mass index (BMI) [Ratio] 26.8 kg/m2 Dr. Jossue Douglas Work Phone: [facility] 02-27-2022 08:27-0400 Body weight 84.[address] Jossue Douglas Work Phone: [facility] 02-27-2022 08:27-0400 Diastolic blood pressure 73 mm[Hg] Dr. Jossue Douglas Work Phone: [facility] 02-27-2022 08:27-0400 Heart rate 61 /min Dr. Jossue Douglas Work Phone: [facility] 02-27-2022 08:27-0400 Respiratory rate 18 /min Dr. Jossue Douglas Work Phone: [facility] 02-27-2022 08:27-0400 SaO2% (BldA) [Mass fraction] 99 % Dr. Jossue Douglas Work Phone: [facility] 02-27-2022 08:27-0400 Systolic blood pressure 103 mm[Hg] Dr. Jossue Douglas Work Phone: [facility] 01-16-2022 14:21-0400 Body height 177.[address] Jossue Douglas Work Phone: [facility] Work Phone: 01-16-2022 14:21-0400 Body weight 84.[address] Jossue Douglas Work Phone: [facility] Work Phone: 01-16-2022 14:02-0400 Body mass index (BMI) [Ratio] 26.6 kg/m2 Dr. Jossue Douglas Work Phone: [facility] Work Phone: 01-16-2022 14:02-0400 Diastolic blood pressure 60 mm[Hg] Dr. Jossue Douglas Work Phone: [facility] Work Phone: 01-16-2022 14:02-0400 Heart rate 75 /min Dr. Jossue Douglas Work Phone: [facility] Work Phone: 01-16-2022 14:02-0400 SaO2% (BldA) [Mass fraction] 96 % Dr. Jossue Douglas Work Phone: [facility] Work Phone: 01-16-2022 14:02-0400 Systolic blood pressure 90 mm[Hg] Dr. Jossue Douglas Work Phone: [facility] Work Phone: 01-07-2022 16:15-0400 Diastolic blood pressure 80 mm[Hg] Loki Sexton MD Work Phone: [facility] 01-07-2022 16:15-0400 Heart rate 57 /min Loki Sexton MD Work Phone: [facility] 01-07-2022 16:15-0400 Respiratory rate 12 /min Loki Sexton MD Work Phone: [facility] 01-07-2022 16:15-0400 Systolic blood pressure 104 mm[Hg] Loki Sexton MD Work Phone: [facility] 01-07-2022 15:30-0400 SaO2% (BldA) [Mass fraction] 97 % Loki Sexton MD Work Phone: [facility] 01-07-2022 13:00-0400 Body temperature 97.7 [degF] Loki Sexton MD Work Phone: [facility] 01-02-2022 07:15-0400 Body height 177.[address] Jossue Douglas Work Phone: [facility] Work Phone: 01-02-2022 07:15-0400 Body weight 83.[address] Jossue Douglas Work Phone: [facility] Work Phone: 01-01-2022 09:34-0400 Body mass index (BMI) [Ratio] 26.5 kg/m2 Dr. Jossue Douglas Work Phone: [facility] Work Phone: 12-26-2021 12:55-0400 Body mass index (BMI) [Ratio] 26.6 kg/m2 Dr. Jossue Douglas Work Phone: [facility] Work Phone: 12-26-2021 12:55-0400 Body temperature 97.2 [degF] Dr. Jossue Douglas Work Phone: [facility] Work Phone: 12-26-2021 12:55-0400 Body weight 84.[address] Jossue Douglas Work Phone: [facility] Work Phone: 12-26-2021 12:55-0400 Diastolic blood pressure 82 mm[Hg] Dr. Jossue Douglas Work Phone: [facility] Work Phone: 12-26-2021 12:55-0400 Heart rate 67 /min Dr. Jossue Douglas Work Phone: [facility] Work Phone: 12-26-2021 12:55-0400 Respiratory rate 14 /min Dr. Jossue Douglas Work Phone: [facility] Work Phone: 12-26-2021 12:55-0400 SaO2% (BldA) [Mass fraction] 99 % Dr. Jossue Douglas Work Phone: [facility] Work Phone: 12-26-2021 12:55-0400 Systolic blood pressure 124 mm[Hg] Dr. Jossue Douglas Work Phone: [facility] Work Phone: 09-21-2021 15:41-0400 Body height 177.8 cm MD Burris [facility] Work Phone: 09-21-2021 15:41-0400 Body mass index (BMI) [Ratio] 26.5 kg/m2 MD Burris [facility] Work Phone: 09-21-2021 15:41-0400 Body weight 83.91 kg MD Burris [facility] Work Phone: 09-21-2021 15:41-0400 Diastolic blood pressure 88 mm[Hg] MD Burris [facility] Work Phone: 09-21-2021 15:41-0400 Heart rate 88 /min MD Burris [facility] Work Phone: 09-21-2021 15:41-0400 Respiratory rate 16 /min MD Burris [facility] Work Phone: 09-21-2021 15:41-0400 SaO2% (BldA) [Mass fraction] 97 % MD Burris [facility] Work Phone: 09-21-2021 15:41-0400 Systolic blood pressure 117 mm[Hg] MD Burris [facility] Work Phone: 09-12-2021 13:20-0400 Diastolic blood pressure 76 mm[Hg] MD Burris [facility] Work Phone: 09-12-2021 13:20-0400 Heart rate 63 /min MD Burris [facility] Work Phone: 09-12-2021 13:20-0400 Respiratory rate 14 /min MD Burris [facility] Work Phone: 09-12-2021 13:20-0400 SaO2% (BldA) [Mass fraction] 95 % MD Burris [facility] Work Phone: 09-12-2021 13:20-0400 Systolic blood pressure 109 mm[Hg] MD Burris [facility] Work Phone: 09-12-2021 12:54-0400 Body height 177.8 cm MD Burris [facility] Work Phone: 09-12-2021 12:54-0400 Body mass index (BMI) [Ratio] 26.5 kg/m2 MD Burris [facility] Work Phone: 09-12-2021 12:54-0400 Body temperature 98.9 [degF] MD Burris [facility] Work Phone: 09-12-2021 12:54-0400 Body weight 83.91 kg MD Burris [facility] Work Phone: 08-20-2021 08:47-0400 Body mass index (BMI) [Ratio] 26.6 kg/m2 MD Burris [facility] Work Phone: 08-20-2021 08:47-0400 Body weight 84.05 kg MD Burris [facility] Work Phone: 08-20-2021 08:47-0400 Diastolic blood pressure 78 mm[Hg] MD Burris [facility] Work Phone: 08-20-2021 08:47-0400 Heart rate 75 /min MD Burris [facility] Work Phone: 08-20-2021 08:47-0400 Respiratory rate 16 /min MD Burris [facility] Work Phone: 08-20-2021 08:47-0400 SaO2% (BldA) [Mass fraction] 95 % MD Burris [facility] Work Phone: 08-20-2021 08:47-0400 Systolic blood pressure 140 mm[Hg] MD Burirs [facility] Work Phone: 08-20-2021 08:47-0400 Body mass index (BMI) [Ratio] 26.6 kg/m2 MD Burris [facility] Work Phone: 08-20-2021 08:47-0400 Body weight 84.05 kg MD Burris [facility] Work Phone: 08-20-2021 08:47-0400 Diastolic blood pressure 78 mm[Hg] MD Burris [facility] Work Phone: 08-20-2021 08:47-0400 Heart rate 75 /min MD Burris [facility] Work Phone: 08-20-2021 08:47-0400 Respiratory rate 16 /min MD Burris [facility] Work Phone: 08-20-2021 08:47-0400 SaO2% (BldA) [Mass fraction] 95 % MD Burris [facility] Work Phone: 08-20-2021 08:47-0400 Systolic blood pressure 140 mm[Hg] MD Burris [facility] Work Phone: Encounters Encounter Date Encounter Type Care Provider Facility Start: 04-02-2025 ambulatory Beck Chi Roger Facility:[facility] Start: 01-31-2025 ambulatory Health Risk Assessment Facility:[facility] Start: 01-25-2025 End: 01-25-2025 ambulatory Beck Chi Roger Facility:[facility] Start: 12-31-2024 End: 12-31-2024 ambulatory Beck Chi Roger Facility:[facility] Start: 11-18-2024 End: 11-18-2024 ambulatory Gerry Green Facility:[facility] Start: 11-10-2024 End: 11-10-2024 ambulatory Sasha Lewis Facility:[facility] Start: 10-26-2024 End: 10-26-2024 ambulatory Sasha Lewis Facility:[facility] Start: 09-30-2024 End: 09-30-2024 ambulatory Beck Chi Roger Facility:[facility] Start: 07-30-2024 ambulatory Beck Chi Roger [facility] Start: 07-30-2024 End: 07-30-2024 ambulatory Beck Chi Roger Facility:[facility] Start: 07-23-2024 End: 07-23-2024 ambulatory Beck Chi Roger Facility:[facility] Start: 07-20-2024 End: 07-20-2024 ambulatory Beck Chi Roger Facility:[facility] Start: 06-24-2024 End: 06-24-2024 ambulatory Beck Chi Roger Facility:[facility] Start: 06-17-2024 End: 06-17-2024 ambulatory Sasha Lewis Facility:[facility] Start: 06-14-2024 End: 06-14-2024 ambulatory Sasha Lewis Facility:[facility] Start: 05-27-2024 End: 05-27-2024 ambulatory Beck Chi Roger Facility:[facility] Start: 2024 End: 2024 ambulatory Beck Chi Roger Facility:[facility] Start: 04-29-2024 End: 04-29-2024 ambulatory Beck Chi Roger Facility:[facility] Start: 03-17-2024 End: 03-18-2024 ambulatory Beck Chi Roger Facility:[facility] Start: 03-10-2024 End: 03-10-2024 ambulatory Beck Chi Roger Facility:[facility] Start: 01-15-2023 End: 01-25-[address] Jossue Douglas Work Phone: [facility] Work Phone: Start: 01-15-2023 End: 01-25-[address] Jossue Douglas Work Phone: [facility] Start: 01-01-[address] Jesusita Douglas Work Phone: [facility] Work Phone: Start: 01-01-2023 End: 01-01-[address] Jossue Douglas Work Phone: [facility] Work Phone: Start: 01-01-2023 End: 01-01-[address] [facility] Work [facility]: Start: 07-24-2022 End: 07-24-[address] Jossue Douglas Work Phone: [facility] Start: 07-24-2022 Non-patient / Non-visit Dr. Jossue Douglas Work Phone: [facility] Start: 07-24-2022 End: 07-24-[address] Jossue Douglas Work Phone: [facility] Work Phone: Start: 07-24-2022 End: 07-24-[address] [facility] Start: 06-05-2022 End: 06-05-[address] Jossue Douglas Work Phone: [facility] Start: 06-03-2022 End: 06-03-[address] Jossue Douglas Work Phone: [facility] Work Phone: Start: 06-03-2022 End: 06-03-[address] Jossue Douglas Work Phone: [facility], [facility] Start: 05-29-2022 End: 05-29-[address] Jossue Douglas Work Phone: [facility] Start: 04-08-2022 End: 04-27-[address] Jossue Douglas Work Phone: [facility] Start: 04-08-[address] Ira Douglas Work Phone: [facility] Start: 04-04-2022 End: 04-04-[address] Jossue Douglas Work Phone: [facility] Work Phone: Start: 04-04-2022 End: 04-04-[address] Jossue Douglas Work Phone: [facility] [facility], [facility] Start: 04-03-2022 End: 04-03-[address] Jossue Douglas Work Phone: [facility] Start: 03-15-2022 End: 03-27-[address] Jossue Douglas Work Phone: [facility] Work Phone: Start: 03-15-2022 End: 03-27-[address] Jossue Douglas Work Phone: [facility]Card[facility] Start: 02-27-2022 End: 02-27-[address] Jossue Douglas Work Phone: [facility] Start: 02-18-2022 End: 02-25-[address] Jossue Douglas Work Phone: [facility] Work Phone: Start: 02-18-2022 End: 02-25-[address] Jossue Douglas Work Phone: [facility] Start: 02-01-2022 End: 02-01-[address] Jossue Douglas Work Phone: [facility] Start: 01-23-2022 End: 01-25-[address] Jossue Douglas Work Phone: [facility] Work Phone: Start: 01-23-2022 End: 01-25-[address] Jossue Douglas Work Phone: [facility] Start: 01-16-2022 End: 01-16-[address] Jossue Douglas Work Phone: [facility] Start: 01-12-2022 End: 01-12-[address] Jossue Douglas Work Phone: [facility] Work Phone: Start: 01-12-2022 End: 01-12-[address] Jossue Douglas Work Phone: [facility]-Laboratory Start: 01-07-2022 Non-patient / Non-visit Dr. Jossue Douglas Work Phone: [facility] Start: 01-07-2022 End: 01-07-2022 ambulatory [facility] Start: 01-07-2022 End: 01-07-2022 Subsequent hospital visit by physician Loki Sexton MD Work Phone: [facility] Director Of Communications Comment on above: Coronary artery eastern philosophy professor elvin total occlusion (Primary Dx); Coronary artery disease involving [place] coronary artery of [place] heart without angina pectoris; Dyslipidemia Start: 01-05-2022 Non-patient / Non-visit Dr. Jossue Douglas Work Phone: [facility] Start: 01-02-2022 Non-patient / Non-visit Dr. Jossue Douglas Work Phone: [facility] Start: 01-02-2022 End: 01-02-2022 Admission to same day surgery center Dr. Jossue Douglas Work Phone: [facility]-Director Of Communications/Special Procedures Start: 01-02-2022 End: 01-02-[address] Jossue Douglas Work Phone: [facility] Work Phone: Start: 12-26-2021 End: 12-26-[address] Jossue Douglas Work Phone: [facility] Start: 11-30-2021 Non-patient / Non-visit MD Burris [facility] Start: 11-30-2021 End: 11-30-2021 Patient encounter procedure MD Burris [facility] Start: 11-16-2021 Registered Referred MD Burris [facility] Start: 09-21-2021 End: 09-21-2021 Patient encounter procedure MD Burris [facility] Start: 09-19-2021 Registered Referred MD Burris [facility] Start: 09-12-2021 Non-patient / Non-visit MD Burris [facility] Start: 09-12-2021 End: 09-12-2021 Patient encounter procedure MD Burris [facility] Start: 08-20-2021 End: 08-20-2021 Patient encounter procedure MD Burris [facility] Internal Medicine Start: 07-27-2021 Non-patient / Non-visit MD Burris [facility] Internal [facility] Start: 06-08-2020 End: 06-09-2020 ambulatory LOKI [facility] Procedures Date Procedure Procedure Detail Performing Clinician Start: 01-15-[address] Jossue Douglas Work Phone: Start: 06-03-2022 Plain x-ray of elbow Dr. Jossue finney Work Phone: Start: 04-04-2022 Plain X-ray of shoulder Dr. Jossue doyle Work Phone: Start: 01-07-2022 History of placement of stent for coronary artery disease History of coronary artery stent placement Dr. 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 Jossue Douglas Work Phone: Start: 11-30-2021 Radionuclide imaging of perfusion of myocardium under exercise stress MD Loki Rock Start: 09-12-2021 CT of chest MD Loki Rock Start: 09-12-2021 End: 09-12-2021 CT angiography of coronary arteries MD Loki Rock Viral antigen assay MD Loki Rock Plan of Treatment Date Care Activity Detail Author Start: 05-29-2022 Patient referral [facility] Work Phone: Start: 03-18-2022 Patient referral to dietitian [facility] Start: 01-14-2022 End: 01-14-2022 Patient encounter procedure 01/14/2022 Office Visit Cardiology Loki Sexton MD [address] [place] [id number] [facility] Start: 01-07-2022 Patient referral [facility] Work Phone: Start: 12-27-2021 Influenza vaccination Flu vaccine (# 1) [facility] Start: 09-12-2021 Following clinical p athway protocol [facility] Work Phone: Start: 08-20-2021 Patient referral [facility] Work Phone: Start: 08-04-2021 COVID-19 Vaccine (4 - Booster for Moderna series) COVID-19 Vaccine (4 - Booster for Moderna series) [facility] Start: 2021 Shingles vaccine (1 of 2) Arndt gles vaccine (1 of 2) [facility] Start: 01-21-2021 DTaP/Tdap/Td vaccine (3 - Td or Tdap) DTaP/Tdap/Td vaccine (3 - Td or Tdap) [facility] Start: 01-16-2017 Screening for malign ant neoplasm of colon [facility] Start: 1989 Hepatitis C screening Hepatitis C sc reen [facility] Start: 1986 HIV screening HIV screen [facility] Start: 1983 Depression Screen Depression Screen [facility] Start: 1981 Lipid panel Lipids [facility] EKG 12 lead EKG 12 lead ECG Routine 01/07/2022 1:27 PM EDT [facility] Work Phone: Electrocardiographic procedure [facility] Work Phone: Oxygen therapy [[facility] Data Set] Initiate Oxygen Therapy Protocol Respiratory Care Routine As Needed until discontinued starting 01/07/2022 [facility] Work Phone: Comment on above: As Needed until disc ontinued starting 01/07/2022 Oxygen therapy [[facility] Data Set] Initiate Oxygen Therapy Protocol Respiratory Care Routine Daily until discontinued starting 01/07/2022 [facility] Work Phone: Comment on above: Daily until disconti nued starting 01/07/2022 Patient Education ED Contact Dermatitis [facility] Work Phone: Patient referral [facility] Work Phone: [facility] Work Phone: [facility] Immunizations Immunization Date Immunization Notes Care Provider Neftali tijerina 01-13-2023 influenza, injectabl e, quadrivalent, preservative free Dr. Jossue Douglas Work Phone: [facility] 05-17-2022 Covid Moderna Bivale nt Booster Dr. Jossue Douglas Work Phone: [facility] 02-18-2022 influenza, injectabl e, quadrivalent, preservative free Dr. Jossue Douglas Work Phone: [facility] 02-18-2022 influenza, seasonal, injectable Dr. Jossue Douglas Work Phone: [facility] Payers Date Payer Category Payer Self-pay [id number] 2023 Private Health Insurance [id number] 2021 Unknown [id number] 2015 Unknown [id number] 1971 Unknown [id number] 2.16. [id number] Unknown Unknown [id number] 2.16.8 [id number] Unknown [id number] 2.16.8 40.1.033284.3.579.2.462 Unknown [id number] 2.16.8 40.1.439006.3.579.2.462 Unknown [id number] 2.16.8 40.1.067510.3.579.2.462 Unknown [id number] 2.16.8 40.1.983385.3.579.2.462 Unknown [id number] 2.16.8 40.1.184587.3.579.2.462 Unknown [id number] 2.16.8 40.1.737197.3.579.2.462 Unknown [id number] 2.16.8 40.1.163853.3.579.2.462 Unknown [id number] 2.16.8 40.1.452397.3.579.2.462 Unknown [id number] 2.16.8 40.1.093687.3.579.2.462 Unknown [id number] 2.16.8 40.1.270651.3.579.2.462 Unknown [id number] 2.16.8 40.1.046487.3.579.2.462 Unknown [id number] 2.16.8 40.1.423174.3.579.2.462 Unknown [id number] 2.16.8 40.1.314471.3.579.2.462 Unknown [id number] 2.16.8 40.1.427684.3.579.2.462 Unknown [id number] 2.16.8 40.1.638500.3.579.2.462 Unknown [id number] 2.16.8 40.1.447381.3.579.2.462 Unknown [id number] 2.16.8 40.1.024419.3.579.2.462 Unknown [id number] 2.16.8 40.1.920831.3.579.2.462 Unknown [id number] 2.16.8 40.1.814379.3.579.2.462 Unknown [id number] 2.16.8 40.1.266912.3.579.2.462 Unknown [id number] 2.16.8 40.1.695652.3.579.2.462 Social History Date Type Detail Facility Start: 08-20-2021 End: 01-01-2023 Tobacco smoking status NHIS Unknown if ever smoked [facility] Start: 1970 Sex Assigned At Male [facility] Start: 01-03-2022 Tobacco smoking stat us WAIS Never smoked tobacco [facility] Work Phone: Start: 01-03-2022 Tobacco use and exposure Smokeless tobacco non-user [facility] Work Phone: Start: 01-03-2022 Alcohol intake Current drinke r of alcohol (finding) [facility] Work Phone: Start: 01-03-2022 History SDOH Alcohol Comment occasional [facility] Work Phone: Start: 1970 Sex Assigned At Not on file S [facility] Work Phone: Start: 12-28-2021 End: 01-07-2022 Exposure to SARS-CoV-2 (event) Not sure [facility] Mental Status Date Assessment Result Facility 09-12-2021 Cognitive function Voice/Name [facility] Work Phone: Clinical Notes 01-07-2022 Laith rOtega RN - 01/07/2022 6:12 PM EDTSshorty Kami Veronicaelianaadam SENIOR CARE MANAGER - [place] - 01/07/2022 2:41 PM EDTDischarge Instructions Note Date & Type Note Facility 01-07-2022 History of Present illness Narrative Patient up and walked in the unit. NO issues reported. Denies chest pain, chest pressure, or shortness of breath. Patient tolerated walk well. documented in this encounter [employer] Work Phone: 01-07-2022 Note Attestation signed by Loki Sexton MD at 01/07/2022 4:14 PM I personally saw and evaluated this patient prior to discharge. I examined the patient, reviewed the meds and the follow-up information. I was personally involved in, and initiated the medical therapy to be used at discharge and the follow-up to be done. 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 3 overlapped BRITTANIE to proximal to mid LAD. Nonsignificant 50% stenosis of proximal circumflex with iFR 1.0. Vasc band to right radial artery and Perclose to right femoral artery with good hemostasis at both sites. Continue baseline medical therapy with aspirin, Brilinta, statin, beta-trena. Stable for discharge to home later today. We will see in follow-up to reassess in a couple weeks, then likely long-term cardiology follow-up in [place]. Loki Sexton MD Name: Tru Ness Date of : 1970 Date of Admission: 01/07/2022 Date of Discharge: 01/07/2022 Admitting physician: Dr. Carlie Davidson Attending: TRANG Moran CNP, Dr. Rea Primary Care Physician: JOSSUE DOUGLAS Review of Systems: Review of Systems Constitutional: Negative for chills, diaphoresis and fever. HENT: Negative for nosebleeds. Eyes: Negative for visual disturbance. Respiratory: Negative for cough, shortness of breath and wheezing. Cardiovascular: Negative for chest pain, palpitations and leg swelling. Gastrointestinal: Negative for abdominal pain, blood in stool, constipation, diarrhea, nausea and vomiting. Genitourinary: Negative for hematuria. Musculoskeletal: Negative for myalgias. Skin: Negative for rash. Neurological: Negative for dizziness and syncope. Hematological: Does not bruise/bleed easily. Psychiatric/Behavioral: Negative for dysphoric mood and suicidal ideas. Denies Depression Physical Exam: Physical Exam Constitutional: General: He is not in acute distress. Appearance: Normal appearance. He is well-developed. He is not diaphoretic. HENT: Mouth/Throat: Pharynx: No oropharyngeal exudate. Eyes: General: No scleral icterus. Right eye: No discharge. Left eye: No discharge. Neck: Thyroid: No thyromegaly. Vascular: No JVD. Cardiovascular: Rate and Rhythm: Normal rate and regular rhythm. Chest Wall: PMI is not displaced. Pulses: Normal pulses. Heart sounds: Normal heart sounds. No murmur heard. No gallop. Pulmonary: Effort: No accessory muscle usage or respiratory distress. Breath sounds: Normal breath sounds. Abdominal: General: Bowel sounds are normal. There is no distension. Palpations: Abdomen is soft. Tenderness: There is no abdominal tenderness. Musculoskeletal: General: Normal range of motion. Skin: General: Skin is warm and dry. Comments: Right radial site D&I, without hematoma or ecchymosis. Pulse 2+, good sensation. Band still applied. Right femoral site soft and nontender, without hematoma, ecchymosis, or bruit. Pulse 2+, good sensation. Neurological: Mental Status: He is alert and oriented to person, place, and time. Vitals: 01/07/22 1330 01/07/22 1345 01/07/22 1400 01/07/22 1415 BP: 109/86 109/84 112/86 (!) 117/98 Pulse: 59 52 54 67 Resp: Temp: TempSrc: SpO2: 100% 100% 100% Reason for Admission: CAD Consultants: Cardiac Rehab HOSPITAL ADMISSION PROBLEM LIST: Patient Active Problem List Diagnosis Abnormal nuclear stress test Coronary artery disease involving [place] coronary artery of [place] heart without angina pectoris Coronary artery chronic total occlusion Pure hypercholesterolemia Procedures: Cath Summary: 01/07/22 Final report pending Verbal report: BRITTANIE x 3 REAL ESTATE LISTING CONSULTANT prox LAD HOSPITAL COURSE : Tru Ness is a 51 y.o. male non-smoker with family history of CAD (father had MA in 40s, and later CABG) who saw Dr. 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 Lynn in [place]. 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 He reports no prior history of CAD, MA, stroke, diabetes or hypertension. He reports being asymptomatic with no anginal chest discomfort, shortness of breath at rest or with exertion, peripheral edema, orthopnea, PND, palpitations, dizziness, or syncope. Because of his strong family history of premature coronary disease, he underwent an outpatient calcium scoring CT scan which were reported significant coronary calcium particularly in the LAD. This was followed by an exercise nuclear stress test which reported evidence of significant LAD ischemia with preserved EF, prompting diagnostic heart cath. Catheterization revealed normal left main with severe proximal LAD stenosis followed by chronic occlusion of the proximal to mid vessel junction. Mid LAD (more content not included)... [facility] 01-07-2022 Hospital course Narrative Name: Tru Ness Date of : 1970 Date of Admission: 01/07/2022 Date of Discharge: 01/07/2022 Admitting physician: Dr. Sexton Discharge Attending: TRANG Moran CNP, Dr. Rea Primary Care Physician: JOSSUE DOUGLAS Review of Systems: Review of Systems Constitutional: Negative for chills, diaphoresis and fever. HENT: Negative for nosebleeds. Eyes: Negative for visual disturbance. Respiratory: Negative for cough, shortness of breath and wheezing. Cardiovascular: Negative for chest pain, palpitations and leg swelling. Gastrointestinal: Negative for abdominal pain, blood in stool, constipation, diarrhea, nausea and vomiting. Genitourinary: Negative for hematuria. Musculoskeletal: Negative for myalgias. Skin: Negative for rash. Neurological: Negative for dizziness and syncope. Hematological: Does not bruise/bleed easily. Psychiatric/Behavioral: Negative for dysphoric mood and suicidal ideas. Denies Depression Physical Exam: Physical Exam Constitutional: General: He is not in acute distress. Appearance: Normal appearance. He is well-developed. He is not diaphoretic. HENT: Mouth/Throat: Pharynx: No oropharyngeal exudate. Eyes: General: No scleral icterus. Right eye: No discharge. Left eye: No discharge. Neck: Thyroid: No thyromegaly. Vascular: No JVD. Cardiovascular: Rate and Rhythm: Normal rate and regular rhythm. Chest Wall: PMI is not displaced. Pulses: Normal pulses. Heart sounds: Normal heart sounds. No murmur heard. No gallop. Pulmonary: Effort: No accessory muscle usage or respiratory distress. Breath sounds: Normal breath sounds. Abdominal: General: Bowel sounds are normal. There is no distension. Palpations: Abdomen is soft. Tenderness: There is no abdominal tenderness. Musculoskeletal: General: Normal range of motion. Skin: General: Skin is warm and dry. Comments: Right radial site D&I, without hematoma or ecchymosis. Pulse 2+, good sensation. Band still applied. Right femoral site soft and nontender, without hematoma, ecchymosis, or bruit. Pulse 2+, good sensation. Neurological: Mental Status: He is alert and oriented to person, place, and time. Vitals: 01/07/22 1330 01/07/22 1345 01/07/22 1400 01/07/22 1415 BP: 109/86 109/84 112/86 (!) 117/98 Pulse: 59 52 54 67 Resp: 11 16 16 Temp: TempSrc: SpO2: 100% 100% 100% Reason for Admission: CAD Consultants: Cardiac Rehab HOSPITAL ADMISSION PROBLEM LIST: Patient Active Problem List Diagnosis Abnormal nuclear stress test Coronary artery disease involving [place] coronary artery of [place] heart without angina pectoris Coronary artery chronic total occlusion Pure hypercholesterolemia Procedures: Cath Summary: 01/07/22 Final report pending Verbal report: BRITTANIE x 3 REAL ESTATE LISTING CONSULTANT prox LAD HOSPITAL COURSE : Tru Ness is a 51 y.o. male non-smoker with family history of CAD (father had MA in 40s, and later CABG) who saw Dr. 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 Lynn in [place]. 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 He reports no prior history of CAD, MA, stroke, diabetes or hypertension. He reports being asymptomatic with no anginal chest discomfort, shortness of breath at rest or with exertion, peripheral edema, orthopnea, PND, palpitations, dizziness, or syncope. Because of his strong family history of premature coronary disease, he underwent an outpatient calcium scoring CT scan which were reported significant coronary calcium particularly in the LAD. This was followed by an exercise nuclear stress test which reported evidence of significant LAD ischemia with preserved EF, prompting diagnostic heart cath. Catheterization revealed normal left main with severe proximal LAD stenosis followed by chronic occlusion of the proximal to mid vessel junction. Mid LAD was supplied by right to left collaterals with distal LAD provided by [id number] collaterals from the circumflex. Approximately 50% focal proximal circumflex stenosis also noted with minor irregularities of dominant RCA. LVEF normal by LV gram with no wall motion abnormalities. No PCI performed at that point. He was started on aspirin as well as Lipitor.Patient referred to Dr. Sexton for evaluation of revascularization options. He recommended PCI REAL ESTATE LISTING CONSULTANT LAD and started ticagrelor and metoprolol succinate. Pt presented today for [facility] with Dr. Sexton. Final report pending, but underwent BRITTANIE x 3 REAL ESTATE LISTING CONSULTANT prox LAD without complications. Pt tolerated well. Denies CP, SOB, ANDERSON, vision/speech changes. Radial and femoral sites stable, pulses 2+. VSS. EKG stable. Will check labs in 5 days. Continue current medications. Follow up with our office once and then back to Dr. Lynn in [place]. Last Labs: Lab Results Component Value Date WBC 10.3 01/01/2022 HGB 17.1 01/01/2022 HCT 48.8 01/01/2022 MCV 90.0 01/01/2022 PLT 265 01/01/2022 Lab Results Component Value Date/Time NA 140 01/01/2022 12:00 AM K 4.0 01/01/2022 12:00 AM CL 106 01/01/2022 12:00 AM CO2 28.0 01/01/2022 12:00 AM BUN 22 01/01/2022 12:00 AM CREATININE 1.19 01/01/2022 12:00 AM GLUCOSE 77 01/01/2022 12:00 AM CALCIUM 9.1 01/01/2022 12:00 AM No results found for: CHOL No results found for: TRIG No results found for: HDL No results found for: LDLCALC, LDLCHOLESTEROL Final Principle Discharge Diagnosis: CAD s/p BRITTANIE x 3 REAL ESTATE LISTING CONSULTANT prox LAD 01/07/[address] Carlie Maynard. Denies SOB, CP, vision/speech changes, or ANDERSON. VSS. EKG stable. Continue DAPT with ASA, ticagrelor, atorvastatin, and metoprolol succinate. Referred to cardiac rehab. Will check CBC and BMP in 5 days. Advised to continue ASA 81mg daily lifelong without interruption and ticagrelor 90mg PO BID for at least 1 year without interruption. Discharge instructions, medications, restrictions, and follow up appt reviewed and verbalized understanding. He asked for refill of statin sent to local pharmacy. He was instructed to inform office if: he has any difficulty obtaining Rx or if this becomes a financial burden or if anyone asks him to hold ASA or ticagrelor. Patient and spouse both verbalized understanding. Secondary Discharge diagnosis: 2. HLD - Recently, atorvastatin increased to 80mg. Tolerating well. Recommend repeat labs in 10-12 weeks. 3. Preventative care - Due for screening colonoscopy. Denies any symptoms/concerns. Advised to delay until 1 year from PCI. Wrote letter for insurance. Discharge Medications: Medication List CONTINUE taking these medications aspirin 81 MG EC tablet atorvastatin 80 MG tablet Commonly known as: LIPITOR Take 1 tablet by mouth daily metoprolol succinate 50 MG extended release tablet Commonly known as: TOPROL XL Take 1 tablet by mouth daily RIZATRIPTAN BENZOATE PO ticagrelor 90 MG Tabs tablet Commonly known as: BRILINTA Take 1 tablet by mouth 2 times daily ICD Registry Information/AMI Registry Information NYHA Functional Classification: Class I Medical Therapy Aspirin: Yes If NO reason for omission ROSALIO/ARB: No If NO reason for omission Not class 1 indication Statin:Yes If NO reason for omission Beta Trena:Yes If NO reason for omission P2Y12 Inhibitors :Yes If NO reason for omission Aldosterone inhibitor :No If NO reason for omission No HF Cardiac rehab Discussed with patient . Yes If NO reason for omission Cardiac Rehab The Cardiac Rehab team at [facility] consists of highly skilled exercise physiologists, nurses, respiratory therapists and physicians working together with you. Our purpose is to help you have a full recovery and achieve the goals you set for yourself. Over the years many of our patients have returned to activities they assumed they would never do again! We can help restore your confidence and motivation to make lifestyle changes that can have a significant impact on your health and quality of life! We can help answer questions and concerns you may have about exercise, lifestyle, medications, diet, stress and anxiety which are common following a hospitalization. We monitor ECG and vital signs during exercise and discuss your progress with you and report to your physician. Cardiac Rehab is proven to help reduce readmissions, improve functional capacity and lower recurrence of problems with your heart. We have facilities at both [facility] and [facility]. At both locations we have street level parking which is free and our sites are easily accessible. For [facility] you can contact us at . We invite you to call us with your questions or to get started in our program. If you have other questions or concerns be sure to ask your provider during your follow up visit. We look forward to seeing you there. Our locations: [facility] [address] [facility] [facility] Ground Floor [id number] - Ground floor BMI Classification: Obese (BMI 30.0-39.9) DIET: A lowfat, low cholesterol diet was discussed with the patient. Discharge to Home Condition at Discharge: good Follow up with cardiology Dr. Sexton 01/14/22 at 11:40AM If any questions call [facility] office [phone] Total time spent for Discharge time greater than 45 minutes Associated attestation - Loki Sexton MD - 01/07/2022 4:14 PM EDT I personally saw and evaluated this patient prior to discharge. I examined the patient, reviewed the meds and the follow-up information. I was personally involved in, and initiated the medical therapy to be used at discharge and the follow-up to be done. 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 3 overlapped BRITTANIE to proximal to mid LAD. Nonsignificant 50% stenosis of proximal circumflex with iFR 1.0. Vasc band to right radial artery and Perclose to right femoral artery with good hemostasis at both sites. Continue baseline medical therapy with aspirin, Brilinta, statin, beta-trena. Stable for discharge to home later today. We will see in follow-up to reassess in a couple weeks, then likely long-term cardiology follow-up in [place]. Loki Sexton MD documented in this encounter [facility] Work Phone: 01-07-2022 Hospital Discharge instructions Maisha Grant APRN - MILL AND COAL TRANSPORT OPERATOR - 01/07/2022 2:36 PM EDT Call your doctor with any medication questions or if you notice any side effects from your medications. If you are unable to fill your medications, please call your Soap Grinder immediately. The office number is located with your follow-up appointment information. Call your doctor if any redness or drainage from the wound site. DO NOT stop taking your medication unless instructed to do so by your doctor. Read the drug information material that were given to you and take medications as instructed by your doctor. New drugs may have been added to your medications, that will strengthen your heart and prevent re-stenosis of the coronary arteries. Drink 6 glasses of water (8 ounces each) over the next 24 hours. Water helps clear the dye from your body. No alcoholic beverages for 24 hours. It may interfere with healing. No exercise or sex for 5 days. Call 911 for chest pain, arm pain, nausea, neck pain, dizziness or unusual sweating AND your pain has not relieved with 2 doses of Nitroglycerin. Call your doctor if a lump at the puncture site enlarges or is larger than marble size. Call your doctor for numbness, tingling, or swelling of the fingers, hand or wrist. Call your doctor for increased area or bruising with discoloration extending into the arm. If bleeding occurs, hold pressure with your thumb against the puncture site and your finger against the back of the wrist for 10 minutes, if BLEEDING continues CALL 911. OK to shower. No tub baths, swimming pools or hot tub soaking for three days. Wash site daily with soap and water, dry gently. The healing wound should remain soft and dry. Keep site clean and dry, no soaking of wrist for three days (no cleaning or dish washing). Remove band aid the day after procedure and leave open to air. No bending of affected wrist for 24 hours. DO NOT lift more than three pounds for 3-5 days[address] driving for 24 hours. GIVE PCI PACKET (FROM DAIRY DEPARTMENT MANAGER) TO PATIENT Give Coronary Artery Discharge Booklet PLEASE CALL YOUR HEART DOCTOR IF YOU CANNOT GET YOUR MEDICATIONS. THE NUMBER IS LISTED WITH YOUR FOLLOW-UP APPOINTMENT. Procedure Sedation Instructions If you have received sedation: you must have someone drive you home You should not drive a car, operate machinery, drink alcohol or perform any activity that requires alertness for the rest of the day. The effects of the sedative should be gone by tomorrow. Blood work in 5-7 days, see orders Cardiac Rehab The Cardiac Rehab team at [facility] consists of highly skilled exercise physiologists, nurses, respiratory therapists and physicians working together with you. Our purpose is to help you have a full recovery and achieve the goals you set for yourself. Over the years many of our patients have returned to activities they assumed they would never do again! We can help restore your confidence and motivation to make lifestyle changes that can have a significant impact on your health and quality of life! We can help answer questions and concerns you may have about exercise, lifestyle, medications, diet, stress and anxiety which are common following a hospitalization. We monitor ECG and vital signs during exercise and discuss your progress with you and report to your physician. Cardiac Rehab is proven to help reduce readmissions, improve functional capacity and lower recurrence of problems with your heart. We have facilities at both [facility] and [facility]. At both locations we have street level parking which is free and our sites are easily accessible. For both campuses you can contact us at . We invite you to call us with your questions or to get started in our program. If you have other questions or concerns be sure to ask your provider during your follow up visit. We look forward to seeing you there. Our locations: [facility] [address] [facility] [address] [facility] Ground Floor [id number] - Ground floor documented in this encounter [facility] Work Phone: 01-07-2022 Evaluation note Diagnosis Onset Date Contact dermatitis noneactiv e Decreased left ventricular function acute History of coronary artery stent placement January 07, 2022 acute [facility] Work Phone: 1(724) 422-592209-12-2022 Evaluation note* Diagnosis Onset Date Resolution Status Contact dermatitis noneactiv e Decreased left ventricular function acute History of coronary artery stent placement December 272021 acute Left anterior shoulder pain chronic Lateral epicondylitis, left elbow noneactive [facility] Work Phone: 1(490) 401-615009-12-2022 Evaluation note* Diagnosis Onset Date Resolution Status Decreased left ventricular function acute History of coronary artery stent placement December 272021 acute Left anterior shoulder pain chronic Lateral epicondylitis, left elbow noneactive Lateral epicondylitis of left elbow acute Lateral epicondylitis of left elbow acute [facility] Work Phone: Evaluation note* Diagnosis Onset Date Resolution Status Colon cancer screening acute Family history of coronary artery disease acute Migraine chronic [facility] Work Phone: Evaluation note* Diagnosis Onset Date Resolution Status Family history of coronary artery disease acute Migraine chronic [facility] Work Phone: Evaluation note* Diagnosis Onset Date Resolution Status Contact dermatitis noneactiv e [facility] Work Phone: Evaluation note* Diagnosis Coronary artery disease involving [place] coronary artery of [place] heart without angina pectoris- Primary Coronary artery chronic total occlusion Coronary atherosclerosis of unspecified type of vessel, [place] or graft Dyslipidemia Other and unspecified hyperlipidemia Abnormal nuclear stress test Other nonspecific abnormal cardiovascular system function study Pure hypercholesterolemia documented in this encounter [facility] Work Phone: Evaluation note* Diagnosis Onset Date Resolution Status Left anterior shoulder pain chronic Lateral epicondylitis, left elbow noneactive Lateral epicondylitis of left elbow acute Lateral epicondylitis of left elbow acute Decreased left ventricular function acute History of coronary artery stent placement December 272021 [facility] Work Phone: Evaluation note* Diagnosis Onset Date Resolution Status Encounter for pre-employment health screening examination [facility] Work Phone: [facility]: Chief Complaint and Reason for Visit Chief Complaint 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 CAD ASHD Reason for Visit Family history of co ronary artery disease Migraine Chief Complaint FAMILY HX OF HEART D ISEASE FAMILY HX OF HEART DISEASE EMPLOYEE LABS DUE TO CALCIUM SCORE. 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 CAD ASHD POISEN ELIGIO ABN STRESS, HLD, ABN CALCIUM SCORE ABN STRESS, HLD, ABN CALCIUM SCORE Amb Documentation Amb Documentation POST-OP Reason for Visit Contact dermatitis Chief Complaint CAD ASHD POISEN ELIGIO ABN STRESS, HLD, ABN CALCIUM SCORE ABN STRESS, HLD, ABN CALCIUM SCORE Amb Documentation Amb Documentation POST-OP PCI w/coronary stent PCI with coronary stent Reason for Visit Contact dermatitis Chief Complaint CAD ASHD POISEN ELIGIO ABN STRESS, HLD, ABN CALCIUM SCORE ABN STRESS, HLD, ABN CALCIUM SCORE Amb Documentation Amb Documentation POST-OP PCI w/coronary stent PCI with coronary stent [address] employee PCI with coronary stent Reason for Visit Contact dermatitis Chief Complaint CAD ASHD POISEN ELIGIO ABN STRESS, HLD, ABN CALCIUM SCORE ABN STRESS, HLD, ABN CALCIUM SCORE Amb Documentation Amb Documentation POST-OP PCI w/coronary stent PCI with coronary stent [address] employee PCI with coronary stent S/P [facility] (SCANNED) PCI with coronary stent Reason for Visit Contact dermatitis Decreased left ventricular function History of coronary artery stent placement Chief Complaint POISEN ELIGIO ABN STRESS, HLD, ABN CALCIUM SCORE ABN STRESS, HLD, ABN CALCIUM SCORE Amb Documentation Amb Documentation POST-OP PCI w/coronary stent PCI with coronary stent COVID-19/[facility] employee PCI with coronary stent S/P [facility] (SCANNED) PCI with coronary stent shoulder/elbow pain EORDER PCI with coronary stent Reason for Visit Contact dermatitis Decreased left ventricular function History of coronary artery stent placement Left anterior shoulder pain Lateral epicondylitis, left elbow Chief Complaint PCI with coronary st ent S/P [facility] (SCANNED) PCI with coronary stent shoulder/elbow pain EORDER PCI with coronary stent TENNIS ELBOW FU EORDER LEFT ELBOW Reason for Visit Decreased left ventr icular function History of coronary artery stent placement Left anterior shoulder pain Lateral epicondylitis, left elbow Lateral epicondylitis of left elbow Lateral epicondylitis of left elbow Chief Complaint shoulder/elbow pain EORDER PCI with coronary stent TENNIS ELBOW FU EORDER LEFT ELBOW HEART DISEASE 3 M FU Reason for Visit Left anterior should er pain Lateral epicondylitis, left elbow Lateral epicondylitis of left elbow Lateral epicondylitis of left elbow Decreased left ventricular function History of coronary artery stent placement Chief 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 Reason for Visit Encounter for pre-em ployment health screening examination Family History No Family History Records Found Relationship Condition Age at Onset Recorded Date/T shane Not Specified Rheumatoid arthritis Unknown Diabetes mellitus Unknown father Myocardial infarction 43 Coronary artery disease Unknown Hypertension Unknown grandfather Myocardial infarction 61 Advance Directives No Advanced Directives Records Found Advance Directive Response Recorded Date/ Time Advance Directives No December 7:15am Living Will No January 02, 022 7:15am Power of Licensed Loan Officer No January 02, 2022 7:15am Latest Code Status on File Code Status Date Activated Date Inactivated Comments Full Code 01/07/2022 9:21 AM Advance Directive Response Recorded Date/ Time Advance Directives on File No 2021 2:02pm Advance Directives No December 7:15am Living Will No January 16, 2022 2:02pm Power of Licensed Loan Officer No December 2:02pm Advance Directive Response Recorded Date/ Time Advance Directives on File No 2021 1:02pm Advance Directives No December 6:15am Living Will No January 16, 2022 1:02pm Power of Licensed Loan Officer No December 1:02pm Advance Directive Response Recorded Date/ Time Advance Directives No December 6:15am Living Will No January 16, 2022 1:02pm Power of Licensed Loan Officer No December 1:02pm Advance Directive Response Recorded Date/ Time Advance Directives No December 7:15am Living Will No January 16, 2022 2:02pm Power of Licensed Loan Officer No December 2:02pm Advance Directive Response Recorded Date/ Time Advance Directives No December 2:46pm Living Will No January 01, 2 023 2:46pm Power of Licensed Loan Officer No January 01, 2023 2:46pm Reason for Referral Specialty Diagnoses / Procedures Referred By Contac t Referred To Contact Cardiac Rehabilitation Diagnoses Coronary artery chronic total occlusion Coronary artery disease involving [place] coronary artery of [place] heart without angina pectoris Maisha Grant, SENIOR CARE MANAGER - MILL AND COAL TRANSPORT OPERATOR [address] [facility] [address] [place] [address] [facility] [address] [facility] [address] [place] [address] Referral ID Status Reason Start Date Expiration Date V isits Requested Visits Authorized [id number] Open Specialty Services Required 01/07/2022 01/07/2023 1 1 Scheduling Instructions [facility] [address] [facility] [address] [place] [address] Question Answer Reason for referral to cardiac rehab Status post PCTA/Coronary artery stenting Comments The patient can be scheduled with any member of the group, including the provider with the first available appointments. Summary Purpose Additional Source Comments Goals (unrecognized section and content) Goals may be documented in a n alternate sectionGoals may be documented in an alternate sectionGoals may be documented in an alternate sectionGoals may be documented in an alternate sectionGoals may be documented in an alternate sectionGoals may be documented in an alternate sectionGoals may be documented in an alternate sectionGoals may be documented in an alternate sectionGoals may be documented in an alternate sectionGoals may be documented in an alternate sectionGoals may be documented in an alternate sectionGoals may be documented in an alternate section Ordered Prescriptions (unrec ognized section and content) Prescription Sig Dispensed Refills Start Date End Da te atorvastatin (LIPITOR) 80 MG tabletIndications:Coronary artery disease involving [place] coronary artery of [place] heart without angina pectoris,Dyslipidemia Take 1 tablet by mouth daily 90 tablet 4 01/07/2022 Scheduled Active and Recently Administ ered Medications (unrecognized section and content) Medication Order 01/05/2022 01/06/2022 01/07/2022 aspirin EC tablet 81 mg 81 mg, Oral, DAILY, First dose on Fri01/07/22 at 1315, Until Discontinued, Do not crush or break. 1417 (Not Given - Pr ovider: Mira Cat RN - Reason: Patient took at home) atorvastatin (LIPITOR) tablet 80 mg 80 mg, Oral, DAILY, First dose on Fri01/07/22 at 1315, Until Discontinued 1503 (Not Given - Pr ovider: Mira Cat RN - Reason: Patient took at home) metoprolol succinate (TOPROL XL) extended release tablet 50 mg 50 mg, Oral, DAILY, First dose on Fri01/07/22 at 1315, Until Discontinued, Do not crush or chew. 1503 (Not Given - Pr ovider: Mira Cat RN - Reason: Patient took at home) sodium chloride flush 0.9 % injection 5-40 mL 5-40 mL, IntraVENous, EVERY 12 HOURS SCHEDULED (2 times per day), First dose on Fri01/07/22 at 0945, Until Discontinued, For Line Patency: Peripheral IV = 5 mL; Midline or Central Line = 10 mL/lumen. If following IV push medication, administer flush at same rate as the IV push. Flush volume is determined by type of infusion therapy being given. For non-viscous solutions use: Peripheral IV = 5 mL Midline or Central Line = 10 mL/lumen For viscous solutions (i.e. blood components, parenteral nutrition, contrast media, or after obtaining blood sample) use: Peripheral IV = 10 mL Midline or Central Line = 20 mL/lumen, Pre-Procedure(Cath) 0945 (Due)2100 (Due) sodium chloride flush 0.9 % injection 5-40 mL 5-40 mL, IntraVENous, EVERY 12 HOURS SCHEDULED (2 times per day), First dose on Fri01/07/22 at 2100, Until Discontinued, For Line Patency: Peripheral IV = 5 mL; Midline or Central Line = 10 mL/lumen. If following IV push medication, administer flush at same rate as the IV push. Flush volume is determined by type of infusion therapy being given. For non-viscous solutions use: Peripheral IV = 5 mL Midline or Central Line = 10 mL/lumen For viscous solutions (i.e. blood components, parenteral nutrition, contrast media, or after obtaining blood sample) use: Peripheral IV = 10 mL Midline or Central Line = 20 mL/lumen, Recovery(Cath) 2100 (Due) ticagrelor (BRILINTA) tablet 90 mg 90 mg, Oral, 2 TIMES DAILY, First dose on Fri01/07/22 at 1315, Until Discontinued, ANTIPLATELET! 1315 (Due)2100 (Due) Continuous Medication Order 01/05/2022 01/06/2022 01/07/2022 0.9 % sodium chloride infusion IntraVENous, at 100 mL/hr, CONTINUOUS, Starting on Fri01/07/22 at 1330, For 4 hours, Recovery(Cath) 1400 (New Bag - Prov ider: Lisseth Paniagua RN) PRN Medication Order 01/05/2022 01/06/2022 01/07/2022 0.9 % sodium chloride infusion IntraVENous, at 5-250 mL/hr, PRN, if patient receiving piggyback infusions and maintenance fluids are not ordered OR KVO fluids to protect IV site / prevent frequent line interruptions/ long duration, Starting on Fri01/07/22 at 1100, For piggyback infusion, administer at same rate as piggyback for a total of 25 mL. Enter 25 mL into dose field and piggyback rate into rate field of order. If piggyback is infusing at a rate less than 100 mL/hr, enter 25 mL into dose field and 100 mL/hr into rate field of order. For KVO fluids, enter rate of 20 mL/hr or less into rate field of order., Pre-Procedure(Cath) 0.9 % sodium chloride infusion IntraVENous, at 5-250 mL/hr, PRN, if patient receiving piggyback infusions and maintenance fluids are not ordered OR KVO fluids to protect IV site / prevent frequent line interruptions/ long duration, Starting on Fri01/07/22 at 1313, For piggyback infusion, administer at same rate as piggyback for a total of 25 mL. Enter 25 mL into dose field and piggyback rate into rate field of order. If piggyback is infusing at a rate less than 100 mL/hr, enter 25 mL into dose field and 100 mL/hr into rate field of order. For KVO fluids, enter rate of 20 mL/hr or less into rate field of order., Recovery(Cath) acetaminophen (TYLENOL) tablet 650 mg 650 mg, Oral, EVERY 4 HOURS PRN, Starting on Fri01/07/22 at 1313, Until Discontinued, Pain Mild (1-3), Fever, Fever >100.5 F (38 C), Maximum dose of acetaminophen is 4000 mg from all sources in 24 hours., Recovery(Cath) acetaminophen (TYLENOL) tablet 650 mg 650 mg, Oral, EVERY 4 HOURS PRN, Starting on Fri01/07/22 at 1258, Until Discontinued, Pain Mild (1-3), Maximum dose of acetaminophen is 4000 mg from all sources in 24 hours. sodium chloride flush 0.9 % injection 5-40 mL 5-40 mL, IntraVENous, PRN, Starting on Fri01/07/22 at 1100, Until Discontinued, Line Care, After every IV line use, For Line Patency: Peripheral IV = 5 mL; Midline or Central Line = 10 mL/lumen. If following IV push medication, administer flush at same rate as the IV push. Flush volume is determined by type of infusion therapy being given. For non-viscous solutions use: Peripheral IV = 5 mL Midline or Central Line = 10 mL/lumen For viscous solutions (i.e. blood components, parenteral nutrition, contrast media, or after obtaining blood sample) use: Peripheral IV = 10 mL Midline or Central Line = 20 mL/lumen, Pre-Procedure(Cath) sodium chloride flush 0.9 % injection 5-40 mL 5-40 mL, IntraVENous, PRN, Starting on Fri01/07/22 at 1313, Until Discontinued, Line Care, After every IV line use, For Line Patency: Peripheral IV = 5 mL; Midline or Central Line = 10 mL/lumen. If following IV push medication, administer flush at same rate as the IV push. Flush volume is determined by type of infusion therapy being given. For non-viscous solutions use: Peripheral IV = 5 mL Midline or Central Line = 10 mL/lumen For viscous solutions (i.e. blood components, parenteral nutrition, contrast media, or after obtaining blood sample) use: Peripheral IV = 10 mL Midline or Central Line = 20 mL/lumen, Recovery(Cath) Care Teams (unrecognized sec tion and content) Fitting Room Supervisor Relationship Specialty Start Date End Date Jossue Douglas Kami [address] [place] [address] PCP - General Internal Medicine 01/03/22 Team Status: Active Member Role Status Dates [place] Family Provider Active Dr. Jossue Douglas MD Primary Care Provider Active Team Status: Inactive Member Role Status Dates Dr. Jossue Douglas MD Primary Care Provider, Refer ring Provider Active Chelo Nascimento PA, PA Attending Provider Active Team Status: Inactive Member Role Status Dates Dr. Jossue Douglas MD Primary Care Provider, Refer ring Provider Active Loki Diaz EYELET MACHINE OPERATOR, EYELET MACHINE OPERATOR-C Attending Provider Active Team Status: Inactive Member Role Status Dates Dr. Jossue Douglas MD Primary Care Provider, Refer ring Provider Active Dr. Tru Wayne DO Attending Provider Active Team Status: Inactive Member Role Status Dates Dr. Jossue Douglas MD Primary Care Provider Active Dr. Chance Lynn MD Attending Provider, Referring Pro vider Active Team Status: Inactive Member Role Status Dates Dr. Jossue Douglas MD Primary Care Provider Active Loki Diaz EYELET MACHINE OPERATOR, EYELET MACHINE OPERATOR-C Attending Provider, Referring Prov ider Active Team Status: Inactive Member Role Status Dates Dr. Jossue Douglas MD Primary Care Provider Active Dr. Tru Wayne DO Attending Provider Active Team Status: Active Member Role Status Dates Dr. Jossue Douglas MD Primary Care Provider Active Dr. Chance Lynn MD Attending Provider Active Team Status: Inactive Member Role Status Dates Dr. Jossue Douglas MD Primary Care Provider Active Dr. Chance Lynn MD Other Provider Active Chelo Nascimento PA, PA Attending Provider, Referr ing Provider Active Team Status: Inactive Member Role Status Dates Dr. Jossue Douglas MD Primary Care Provider, Refer ring Provider Active Stepan Marie PA, PA Attending Provider Active Team Status: Inactive Member Role Status Dates Dr. Jossue Douglas MD Primary Care Provider Active Stepan Marie PA, PA Attending Provider, Referring Provi amie Active Team Status: Active Member Role Status Dates Dr. Jossue Douglas MD Primary Care Provider Active Health Risk Assessment Attending Provider, Ray baires Active Team Status: Inactive Member Role Status Dates Dr. Jossue Douglas MD Primary Care Provider Active Dr. Beck Duran MD Attending Provider Active (unrecognized sect ion and content) No Status Records FoundNo Status Records FoundNo Status Records Found INFORMATION SOURCE (unrecogn ized section and content) DATE CREATED AUTHOR 01/08/2022 [facility] DATE CREATED AUTHOR AUTHOR'S ORGANIZ ATION 10/18/2022 [facility] DATE CREATED AUTHOR AUTHOR'S ORGANIZ ATION 03/04/2025 [facility] FOR RECORDS PERTAINING TO PATIENTS WHO ARE OR HAVE BEEN ENROLLED IN A CHEMICAL DEPENDENCY/SUBSTANCEABUSE PROGRAM, SOME INFORMATION MAY BE OMITTED. This clinical summary was aggregated from multiple sources. Caution should be exercised in using it in the provision of clinical care. This summary normalizes information from multiple sources, and as a consequence, information in this document may materially change the coding, format and clinical context of patient data. In addition, data may be omitted in some cases. CLINICAL DECISIONS SHOULD BE BASED ON THE PRIMARY CLINICAL RECORDS. [facility]. provides no warranty or guarantee of the accuracy or completeness of information in this document.
[2025-04-21 05:02] LABS: Hematocrit 48.9 % (40-54); Hemoglobin 17.0 g/dL (13.0-16.5); Immature Granulocytes Count 0.040 X10^3/uL (0.0-0.0); Mean Corp Hgb Conc 34.8 g/dL (32-36); Mean Corpuscular Volume 86.9 fL (80-94); Mean Platelet Vol. 10.1 fl (6.2-12.0); NRBC Flagged by Analyzer 0 % (0-5); Platelet Count 366 K/mm3 (150-450); RBC Distribution Width CV 12.5 % (11.6-14.6); RBC Distribution Width SD 39.4 fl (35.1-43.9); Red Blood Count 5.63 M/mm3 (4.6-6.2); White Blood Count 12.2 K/mm3 (4.4-11.0)
[2025-04-21 05:04] LABS: Troponin T High Sensitivity 9 ng/L (<=22)
[2025-04-21] MEDS: Lidocaine 1% (20 ml mdv) 20 ML Vial INFILT (05:10)
[2025-04-21] MEDS: 0.9% Normal Saline (1000mL) 1,000 ML 1000 ML IV (05:10)
[2025-04-21 05:25] LABS: Anion Gap 15 (7-18); BUN 20 mg/dL (4-19); BUN/Creat Ratio 18.3 RATIO (10-20); Calcium,Total 9.4 mg/dL (7.6-11.0); Carbon Dioxide 22.9 mmol/L (20.0-29.0); Chloride 103 mmol/L (96-106); Estimated Creatinine Clearance 80.93 ml/min (50-250); Glucose 167 mg/dL (70-99); Potassium 3.6 mmol/L (3.5-5.1)
[2025-04-21 07:12] LABS: Troponin T High Sens 2 HR 7 ng/L (<=22)
== END 2025-04-21 07:47 | disposition home or self-care (01) ==
PROVIDERS: Emergency Provider Emergency Medicine; PCP Family Medicine Geriatric Medicine; Visit Provider Emergency Medicine
DX: R55 Syncope and collapse (principal); S01.01XA Laceration without foreign body of scalp, initial encounter; I25.10 Atherosclerotic heart disease of native coronary artery without angina pectoris; X58.XXXA Exposure to other specified factors, initial encounter; Z95.5 Presence of coronary angioplasty implant and graft; Z23 Encounter for immunization
CPT/HCPCS: 12004; 70450; 72125; 80048; 84484; 85025; 90471; 90715; 93005; 96361; 96374; 99285; A4216; J2405

== ENCOUNTER → 2025-04-25 | Outpatient (CLI) | payer OTHER, SELFPAY ==
[2024-05-10 15:34] VITALS: BMI 26.4
--- NOTE | 2025-04-25 10:11 | US_ITS ---
PROCEDURE: ABDOMEN LIMITED 04/25/2025 REASON FOR EXAM: ABNORMAL AST AND ALT TECHNIQUE: Procedure Code: USABDL Modality: US Procedure: ABDOMEN LIMITED FINDINGS: Liver measures 14.5 cm in greatest dimension it appears hyperechoic, compatible with fatty infiltration. No intrahepatic or extrahepatic biliary ductal dilation. Normal hepatopetal flow in the portal vein. Color flow in the hepatic artery. Gallbladder is nontender, thin-walled, and anechoic measuring 5.6 cm, without calculus. Pancreas is not visualized, likely due to overlying bowel gas. Right kidney measures 12.3 x 5.8 x 6.5 cm. Inferior pole cyst measures 2.2 cm. Normal color flow. No calculus or cortical thinning. US/Abdomen Limited IMPRESSION: Hepatic steatosis. 2.2 cm right renal cyst. Reading Location: [facility]
== END | disposition home or self-care (01) ==
LOC: US 10:11
PROVIDERS: PCP Family Medicine Geriatric Medicine; Referring Provider Family Medicine Geriatric Medicine; Visit Provider Family Medicine Geriatric Medicine
DX: R74.8 Abnormal levels of other serum enzymes (principal); M54.12 Radiculopathy, cervical region
CPT/HCPCS: 76705